=== PATIENT | female | born 1950 | race Caucasian/White ===

== ENCOUNTER → 2018-08-30 16:33 | Outpatient (CLI) | payer OTHER, SELFPAY ==
[2017-07-27 09:33] VITALS: BMI 36.6
--- NOTE | 2018-08-30 | ASPS_PTH ---
PATIENT: CRISTY MCRAE LOC: [facility] U#:[id number] AGE/SX: 74/F ROOM: RE08/30/[address]: Dr. Chela Cruz MD : [id number] BED: DIS: SPEC #: [id number] RECD: 08/30/18 15:16 STATUS: MADAN RELuz #: [id number] KHAI: 08/30/18 00:[address]: Chela Cruz DEPT: CYTOLOGY RECD BY: Jairo Bowden ENTERED: 08/31/18 09:52 SP TYPE: ASPIRATION OTHR DR: Dr. Jorje Alcantar III, MD Tissues: A - Nipple Procedures: Special Stain Group II Cytology Other HEADER OPERATION: Aspiration of left nipple PRE-OP DIAGNOSIS: Bloody left nipple discharge TISSUE SUBMITTED: Left nipple discharge DIAGNOSIS CYTOLOGY Left nipple discharge (smears): Abundant macrophages consistent with benign cyst contents. See comment. AM:iram 5/22/19 COMMENT Rare benign ductal epithelial cells are identified. The specimen primarily consists of macrophages. Clinical correlation is suggested. CYTOLOGY STUDY Slides are reviewed. CYTOLOGY GROSS Received are four smears labeled with the patient's name and designated per the requisition as left nipple discharge. Submitted for staining. 08/31/18 TC:5 CPT: 45604
== END ==
PROVIDERS: Family Provider Family Medicine; PCP Family Medicine; Referring Provider Surgery; Visit Provider Surgery
DX: N64.52 Nipple discharge (principal)
CPT/HCPCS: 88161; 88313

== ENCOUNTER 2018-09-20 16:43 | Emergency (ER) | payer MEDICARE, SELFPAY ==
[2018-09-03 13:08] VITALS: BMI 36.5
[2018-09-20 16:44] VITALS: BP 160/82; PULSE 82; RESP 16; TEMP 36.8; O2SAT 99; BMI 35.8
--- NOTE | 2018-09-20 17:34 | US_ITS ---
STUDY: VENOUS DOPPLER ULTRASOUND - RIGHT LOWER EXTREMITY REASON FOR EXAM: Female, 68 years old. Swelling TECHNIQUE: Ultrasound evaluation of the deep vein system to include caro-scale imaging and compression was performed. Caro-scale imaging and Doppler sonographic evaluation, including duplex spectral analysis and qualitative color flow sonography, was performed. COMPARISON: None. FINDINGS: Common Femoral Vein: Normal compression, spontaneity and augmentation. Normal color Doppler. Common Femoral Vein/Greater Saphenous Junction: Normal compression, spontaneity and augmentation. Normal color Doppler. Deep Femoral Vein: Normal compression, spontaneity and augmentation. Normal color Doppler. Femoral Proximal: Normal compression, spontaneity and augmentation. Normal color Doppler. Femoral Middle: Normal compression, spontaneity and augmentation. Normal color Doppler. Femoral Distal: Normal compression, spontaneity and augmentation. Normal color Doppler. Popliteal Vein: Normal compression, spontaneity and augmentation. Normal color Doppler. Posterior Tibial Vein: Normal compression, spontaneity and augmentation. Normal color Doppler. Peroneal Vein: Normal compression, spontaneity and augmentation. Normal color Doppler. There is superficial phlebothrombosis of the right medial ankle. US/Venous Duplex Imag/Limited/Uni IMPRESSION: Superficial phlebothrombosis in the right medial ankle. No evidence for deep venous thrombosis. Electronically Signed: Jose Ramon Puckett MD at 18:33 EDT , Service support ,
--- NOTE | 2018-09-20 18:05 | ED.VISSUMM ---
- ER Visit Summary Date of Service: 09/20/18 Chief Complaint: Right leg pain History of Present Illness: The patient is a 68 F who presents with pain and swelling in her right lower leg and ankle area that has been constant for the past 2 weeks. Patient describes her pain as sharp, dull, aching, and burning. Patient states nothing makes it better or worse. Patient denies any paresthesias or weakness. Patient states her primary care physician referred to the emergency department for possible DVT. Patient denies any chest pain or shortness of breath. Patient denies any calf pain. Physical Examination: Vital signs are stable. Patient is afebrile. Patient is in no acute distress. Skin is warm dry. There is some mild erythema and tenderness over the medial aspect of the right lower leg and ankle area. There is no calf tenderness. There is no bony crepitance or step-off. There is good range of motion of the right ankle and right knee. There is no pain or swelling of the right thigh. Sensation was intact to light touch bilaterally. Strength is 5/5 bilaterally in the lower extremities. Pedal pulses are equal bilaterally. Test Results: Venous duplex of the right lower extremity was obtained. There is superficial phlebitis noted. There is no DVT noted. Emergency Department Course and Treatment: Patient was instructed to use warm compresses the area. Patient was instructed to elevate her right lower leg. Patient was instructed to follow-up with her primary care physician in 5 to 7 days. Patient understood and was agreeable with the plan. All questions were answered. Disposition: Discharge home Impression: Superficial thrombophlebitis right lower leg This note was generated with Reel[employer]ie dictation software. It may contain incorrect words, spelling, and punctuation that were not noted in review of the chart prior to signing ED Disposition - Plan for ED Patient: Disposition: Home or Assisted Living Diagnosis: Superficial thrombophlebitis of right leg Instructions: ED Phlebitis Superficial Referrals: Jorje Alcantar III, MD [Primary Care Provider] - 5-7 Days
[2018-09-20 19:04] VITALS: BP 121/65; PULSE 55; RESP 15; O2SAT 97
== END 2018-09-20 19:10 | disposition home or self-care (01) ==
PROVIDERS: Emergency Provider Emergency Medicine; Family Provider Family Medicine; PCP Family Medicine
DX: I80.01 Phlebitis and thrombophlebitis of superficial vessels of right lower extremity (principal); I10 Essential (primary) hypertension; E03.9 Hypothyroidism, unspecified; Z79.899 Other long term (current) drug therapy
CPT/HCPCS: 93971; 99282

== ENCOUNTER → 2019-08-29 07:51 | Outpatient (CLI) | payer MEDICARE, OTHER, SELFPAY ==
--- NOTE | 2019-08-29 07:53 | ECHOD_ITS ---
Reason For Study: MURMUR Procedure This was a 2D Doppler, Color Flow transthoracic echocardiogram. The exam was of adequate technical quality. Exam performed in department. Left Ventricle Normal LV size. Left ventricular systolic function is normal. The estimated ejection fraction is 60 %. Diastolic function is indeterminate. No regional wall motion abnormalities noted. Right Ventricle Normal RV size. Normal systolic function. Atria The left atrium is mildly enlarged. Normal right atrium. No doppler evidence for ASD. Mitral Valve There is no mitral annular calcification. Normal mitral valve. Mild (1+) mitral valve insufficiency. Tricuspid Valve Normal tricuspid valve. Mild to moderate (1-2+) tricuspid valve insufficiency. Right ventricular systolic pressure estimated to be 30 mmHg. Aortic Valve Trisinus/trileaflet aortic valve. Mild focal aortic valve thickening. Mild (1+) aortic valve insufficiency. Pulmonic Valve The pulmonic valve is not well visualized. Trivial pulmonic valve insufficiency. Great Vessels Normal sized aortic root. Pericardium/Pleural Trivial pericardial effusion. There are no echocardiographic indications of cardiac tamponade. MMode/2D Measurements & Calculations LVIDd: 5.0 cm IVSd: 0.77 cm Ao root diam: 3.8 cm LVIDs: 3.2 cm LVPWd: 0.85 cm RVDd: 3.6 cm FS: 35.9 % LAV(MOD-bp): 52.3 ml LA A4 area: 19.4 cm2 LA dimension(2D): 3.8 cm LAV(MOD-bp) Indexed: 26.7 ml/m2 LAV(MOD-sp2): 42.1 ml LAV(MOD-sp4): 53.8 ml RA A4 area: 14.4 cm2 Time Measurements MV dec time: 0.19 sec Doppler Measurements & Calculations MV E max manuel: 83.1 cm/sec Lat Peak E' Manuel: 12.5 cm/sec Med Peak E' Manuel: 6.0 cm/sec MV A max manuel: 80.5 cm/sec E/E' lat: 6.7 E/E' med: 13.8 MV E/A: 1.0 Ao V2 max: 139.0 cm/sec AI max manuel: 348.9 cm/sec PA V2 max: 102.5 cm/sec Ao max P.7 mmHg AI max P.1 mmHg AI dec slope: 159.8 cm/sec2 AI P1/2t: 639.7 msec PI end-d manuel: 98.6 cm/sec TR max manuel: 261.2 cm/sec TR max P.3 mmHg Interpretation Summary Left ventricular systolic function is normal. The estimated ejection fraction is 60 %. The left atrium is mildly enlarged. Mild (1+) mitral valve insufficiency. Mild to moderate (1-2+) tricuspid valve insufficiency. Mild focal aortic valve thickening. Mild (1+) aortic valve insufficiency. Trivial pulmonic valve insufficiency. Trivial pericardial effusion. There are no echocardiographic indications of cardiac tamponade. Right ventricular systolic pressure estimated to be 30 mmHg. Diastolic function is indeterminate. Ordering Physician: Hernán Frausto Referring Physician: MAURY ZAMORANO Performed By: Yen Steele, YUKO, RVT
== END ==
PROVIDERS: PCP Family Medicine; Referring Provider Internal Medicine Cardiovascular Disease; Visit Provider Internal Medicine Cardiovascular Disease
DX: I47.1 Supraventricular tachycardia (principal)
CPT/HCPCS: 93306

== ENCOUNTER 2020-06-19 13:21 | Outpatient (RCR) | payer MEDICARE, OTHER, SELFPAY ==
[2019-09-12 09:11] VITALS: BMI 34.9
[2020-06-19] MEDS: COVID-19 VACC, MRNA(PFIZER)/PF 30 MCG/0.3 ML SYRINGE IM (08:39)
[2020-07-10] MEDS: COVID-19 VACC, MRNA(PFIZER)/PF 30 MCG/0.3 ML SYRINGE IM (08:26)
== END 2020-09-18 23:59 ==
LOC: IMMUN 13:21
PROVIDERS: PCP Family Medicine; Referring Provider Family Medicine; Visit Provider Family Medicine
DX: Z23 Encounter for immunization (principal)
CPT/HCPCS: 0001A; 0002A; 91300

== ENCOUNTER → 2021-08-01 | Outpatient (CLI) | payer MEDICARE, OTHER, SELFPAY ==
--- NOTE | 2021-08-01 13:52 | ECHOD_ITS ---
Reason For Study: MURMUR Procedure This was a 2D Doppler, Color Flow transthoracic echocardiogram. The exam was of adequate technical quality. Exam performed in department. Left Ventricle Normal LV size. Left ventricular systolic function is normal. The estimated ejection fraction is 60 %. Diastolic function is indeterminate. No regional wall motion abnormalities noted. Right Ventricle Normal RV size. Normal systolic function. Atria Normal left atrium. Normal right atrium. No doppler evidence for ASD. Mitral Valve There is no mitral annular calcification. Anterior leaflet diffuse mitral valve thickening. Mild- Moderate (1-2+) mitral valve insufficiency. Tricuspid Valve Normal tricuspid valve. Mild to moderate (1-2+) tricuspid valve insufficiency. Right ventricular systolic pressure estimated to be 30 mmHg. Aortic Valve Trisinus/trileaflet aortic valve. Mild focal aortic valve calcification. Trivial aortic valve insufficiency. Pulmonic Valve The pulmonic valve is not well visualized. Trivial pulmonic valve insufficiency. Great Vessels Normal sized aortic root. Pericardium/Pleural No pericardial effusion. MMode/2D Measurements & Calculations LVIDd: 4.7 cm IVSd: 1.0 cm LVOT diam: 2.1 cm LVIDs: 3.3 cm LVPWd: 0.90 cm LVOT area: 3.6 cm2 RVDd: 3.7 cm FS: 29.1 % Ao root diam: 3.2 cm LAV(MOD-bp): 55.8 ml LVAd ap4: 32.6 cm2 LAV(MOD-bp) Indexed: 28.5 ml/m2 LVLd ap4: 8.3 cm LAV(MOD-sp2): 60.3 ml EDV(MOD-sp4): 104.2 ml LAV(MOD-sp4): 45.5 ml EDV(sp4-el): 109.1 ml LVAs ap4: 17.7 cm2 LVLs ap4: 6.5 cm ESV(MOD-sp4): 45.8 ml ESV(sp4-el): 41.0 ml EF(MOD-sp4): 56.1 % EF(sp4-el): 62.4 % LVAd ap2: 27.8 cm2 SV(MOD-sp4): 58.4 ml SV(MOD-sp2): 51.9 ml LVLd ap2: 7.5 cm EDV(MOD-sp2): 85.6 ml EDV(sp2-el): 86.9 ml LVAs ap2: 15.4 cm2 LVLs ap2: 5.9 cm ESV(MOD-sp2): 33.7 ml ESV(sp2-el): 34.2 ml EF(MOD-sp2): 60.6 % SV(sp4-el): 68.1 ml LA dimension(2D): 3.2 cm LA A4 area: 17.4 cm2 RA A4 area: 14.7 cm2 Doppler Measurements & Calculations MV E max manuel: 106.3 cm/sec Lat Peak E' Manuel: 10.3 cm/sec Med Peak E' Manuel: 6.1 cm/sec MV A max manuel: 88.0 cm/sec E/E' lat: 10.4 E/E' med: 17.3 MV E/A: 1.2 Ao V2 max: 143.2 cm/sec AI max manuel: 356.0 cm/sec LV V1 max: 112.1 cm/sec Ao max P.2 mmHg AI max P.0 mmHg LV V1 max P.0 mmHg KELLY(V,D): 2.8 cm2 AI dec slope: 195.2 cm/sec2 AI P1/2t: 534.2 msec PA V2 max: 107.7 cm/sec TR max manuel: 258.5 cm/sec TR max P.7 mmHg ECHO/Echo Complete Interpretation Summary Left ventricular systolic function is normal. The estimated ejection fraction is 60 %. Anterior leaflet diffuse mitral valve thickening. Mild-Moderate (1-2+) mitral valve insufficiency. Mild to moderate (1-2+) tricuspid valve insufficiency. Mild focal aortic valve calcification. Trivial aortic valve insufficiency. Trivial pulmonic valve insufficiency. Right ventricular systolic pressure estimated to be 30 mmHg. Diastolic function is indeterminate. Ordering Physician: Hernán Frausto Referring Physician: MIREILLE ROSAS Performed By: Dari Godoy RCS
== END | disposition home or self-care (01) ==
PROVIDERS: PCP Nurse Practitioner Family; Visit Provider Internal Medicine Cardiovascular Disease
DX: I36.1 Nonrheumatic tricuspid (valve) insufficiency (principal); I47.1 Supraventricular tachycardia; I34.0 Nonrheumatic mitral (valve) insufficiency; I35.1 Nonrheumatic aortic (valve) insufficiency; R01.1 Cardiac murmur, unspecified; I10 Essential (primary) hypertension
CPT/HCPCS: 93306

== ENCOUNTER → 2022-07-07 | Outpatient (CLI) | payer MEDICARE, OTHER, SELFPAY ==
--- NOTE | 2022-07-07 09:54 | ECHOD_ITS ---
Reason For Study: MURMUR Procedure This was a 2D Doppler, Color Flow transthoracic echocardiogram. Exam performed in department. Left Ventricle Normal LV size. Left ventricular systolic function is normal. The estimated ejection fraction is 65 %. Normal diastology for age. No regional wall motion abnormalities noted. Right Ventricle Normal RV size. Normal systolic function. Atria Normal left atrium. Normal right atrium. Mitral Valve Normal mitral valve. Mild (1+) eccentric mitral valve insufficiency. Tricuspid Valve Normal tricuspid valve. Mild (1+) tricuspid valve insufficiency. Pulmonary artery systolic pressure is 34 mmHg. Aortic Valve Trisinus/trileaflet aortic valve. Mild (1+) eccentric aortic valve insufficiency. Pulmonic Valve Normal pulmonic valve. Great Vessels Normal aortic root. The pulmonary artery is normal size. Normal inferior vena cava. Pericardium/Pleural No pericardial effusion. MMode/2D Measurements & Calculations LVIDd: 5.0 cm IVSd: 0.90 cm Ao root diam: 3.4 cm LVIDs: 3.2 cm LVPWd: 0.84 cm RVDd: 3.5 cm FS: 37.2 % LAV(MOD-bp): 46.3 ml LVAd ap4: 31.1 cm2 SV(MOD-sp4): 65.5 ml LAV(MOD-bp) Indexed: 23.7 ml/m2 LVLd ap4: 7.9 cm LAV(MOD-sp2): 47.0 ml EDV(MOD-sp4): 99.4 ml LAV(MOD-sp4): 44.5 ml EDV(sp4-el): 104.1 ml LVAs ap4: 15.9 cm2 LVLs ap4: 6.6 cm ESV(MOD-sp4): 33.8 ml ESV(sp4-el): 32.6 ml EF(MOD-sp4): 65.9 % EF(sp4-el): 68.7 % SV(sp4-el): 71.5 ml LA A4 area: 17.9 cm2 LA dimension(2D): 3.2 cm RA A4 area: 14.8 cm2 Time Measurements MV dec time: 0.20 sec Doppler Measurements & Calculations MV E max manuel: 81.7 cm/sec Lat Peak E' Manuel: 14.1 cm/sec Med Peak E' Manuel: 7.8 cm/sec MV A max manuel: 74.7 cm/sec E/E' lat: 5.8 E/E' med: 10.4 MV E/A: 1.1 Ao V2 max: 127.6 cm/sec AI max manuel: 387.3 cm/sec LV V1 max: 95.9 cm/sec Ao max P.5 mmHg AI max P.0 mmHg LV V1 max P.7 mmHg AI dec slope: 154.8 cm/sec2 AI P1/2t: 732.8 msec PA V2 max: 95.2 cm/sec TR max manuel: 270.1 cm/sec TR max P.2 mmHg ECHO/Echo Complete Interpretation Summary Normal LV size. Left ventricular systolic function is normal. The estimated ejection fraction is 65 %. Normal diastology for age. Mild (1+) tricuspid valve insufficiency. Mild (1+) eccentric mitral valve insufficiency. Ordering Physician: Hernán Frausto Referring Physician: KEY LOVE Performed By: Sabiha Pompa RDCS
== END | disposition home or self-care (01) ==
PROVIDERS: PCP Family Medicine; Visit Provider Internal Medicine Cardiovascular Disease
DX: I35.1 Nonrheumatic aortic (valve) insufficiency (principal); I34.0 Nonrheumatic mitral (valve) insufficiency; I36.1 Nonrheumatic tricuspid (valve) insufficiency; R01.1 Cardiac murmur, unspecified
CPT/HCPCS: 93306

== ENCOUNTER 2022-07-19 19:34 | Emergency (ER) | payer MEDICARE, OTHER, SELFPAY ==
[2022-07-19 19:35] VITALS: BP 176/92; PULSE 106; RESP 18; TEMP 36.9; O2SAT 100; BMI 35.9
[2022-07-19 22:14] LABS: Absolute Lymphocyte Count 0.76 X10^3/uL (0.83-4.51); Absolute Neutrophil Count 6.6 X10^3/uL (2.0-7.7); Basophil# 0.06 X10^3/uL; Basophil% 0.7 % (0-1); Eosinophil# 0.12 X10^3/uL; Eosinophils% 1.5 % (0-5); Hematocrit 38.8 % (37-47); Hemoglobin 12.7 g/dL (12.0-15.0); Lymphocyte # 0.76 X10^3/ul (0.83-4.51); Lymphocyte % 9.3 % (19-41); Mean Corp Hgb Conc 32.7 g/dL (32-36); Mean Corpuscular Hgb 29.9 pg (27.0-32.0); Mean Corpuscular Volume 91.3 fL (81-99); Mean Platelet Vol. 8.7 fl (6.2-12.0); Monocyte# 0.63 X10^3/uL; Monocyte% 7.7 % (0-10); NRBC Flagged by Analyzer 0 % (0-5); Neutrophil # 6.56 X10^3/uL (2.7-7.7); Neutrophil % 80.4 % (47-70); Platelet Count 179 K/mm3 (150-450); RBC Distribution Width CV 13.6 % (11.6-14.6); RBC Distribution Width SD 45.8 fl (35.1-43.9); Red Blood Count 4.25 M/mm3 (4.2-5.4); White Blood Count 8.2 K/mm3 (4.4-11.0)
[2022-07-19 22:21] VITALS: RESP 18
[2022-07-19 22:25] LABS: Prothrombin Time (Protime)PT. 12.4 SECONDS (11.7-14.9)
[2022-07-19 22:33] LABS: Partial Thromboplast Time 30.4 Seconds (24.1-36.2)
[2022-07-19 22:46] LABS: Anion Gap 9 (5-15); BUN 17 mg/dL (7-18); BUN/Creat Ratio 13.8 RATIO (10-20); Calcium,Total 9.1 mg/dL (8.5-10.1); Chloride 106 mmol/L (98-107); Creatinine, Serum 1.23 mg/dL (0.55-1.02); EST Glomerular Filtration Rate 46 mL/min (>60); Est Glom Filt Rate - Afr Amer 56 mL/min (>60); Estimated Creatinine Clearance 36.75 ml/min; Glucose 115 mg/dL (74-106); Potassium 3.5 mmol/L (3.5-5.1); Sodium Level 138 mmol/L (136-145); Thyroid Stim Hormone (TSH) 3.12 uIU/mL (0.358-3.74)
--- NOTE | 2022-07-19 23:06 | EDS_ITS ---
HPI History of Present Illness Chief Complaint: GI Bleed Informant: patient Narrative Narrative: Patient presents secondary to GI bleed. She states that she has had some trouble with hemorrhoids recently. Yesterday the hemorrhoids became swollen and painful. She was out to dinner tonight when she felt wet and went to the restroom and noted blood. She reports having a low-grade fever of 99.7 last evening. No significant abdominal pain. No cough or congestion. 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 Nonrheumatic mitral (valve) insufficiency Syncope and collapse Home Medications cholecalciferol (vitamin D3) 50 mcg (2,000 unit) capsule 2,000 unit PO QDAY 07/27/17 [History Last Taken Unknown] levothyroxine 100 mcg capsule 100 mcg PO DAILY 08/10/20 [History Last Taken Unknown] levothyroxine 112 mcg capsule 112 mcg PO .Thursday08/10/20 [History Last Taken Unknown] calcium carbonate 600 mg calcium (1,500 mg) tablet 600 mg PO BID 08/05/21 [History Last Taken Unknown] amlodipine 5 mg tablet 5 mg PO QDAY #90 tabs 07/06/22 [Rx Last Taken Unknown] hydrocortisone 2.5 % topical cream with perineal applicator (Anusol-HC) 1 applic OK DAILY PRN hemorrhoids #30 grams 07/19/22 [Rx Last Taken Unknown] Allergy/AdvReac Type Severity Reaction Status Date / Time adhesive Allergy Hives Verified 07/19/22 19:35 egg AdvReac Upset Verified 07/19/22 19:35 Stomach Family History Father Hypertension Mother Lymphoma Brother Bipolar 1 disorder Pneumonia Brother Hypertension Surgical History History of laparoscopy Social History Smoking Status: Never smoker alcohol intake: never substance use type: does not use caffeine: No what type of physical activity do you participate in: bicycling frequency: 5-6 times per week duration: 45-60 minutes/day seatbelt use: always do you feel safe at home: Yes ROS ROS ED Constitutional Constitutional ED: Reports fever(s); Denies chills Eyes Eyes: Denies change in vision or discharge from eye(s) ENT ENT ED: Denies discharge from eye(s), rhinorrhea or sore throat Cardiovascular Cardiovascular: Denies chest pain or palpitations Respiratory/Chest Respiratory/Chest: Denies cough or dyspnea Gastrointestinal Gastrointestinal: Reports other Details: Hemorrhoids, bleeding ; Denies abdominal pain, diarrhea, nausea or vomiting Genitourinary Genitourinary ED: Denies difficulty urinating or dysuria Musculoskeletal Musculoskeletal: Denies back pain or extremity pain Integumentary Denies Abrasions or rash Neurologic Neurologic: Denies headache(s) or weakness Psychiatric Psychiatric: Denies anxiety or depression Allergic/Immunologic Allergic/Immunologic ED: Denies lip swelling or urticaria EXAM Physical Exam Const Vital Signs: 07/19/22 19:35 07/19/22 22:21 Temperature 98.4 F Temperature Source Temporal Pulse Rate 106 H Respiratory Rate 18 18 Blood Pressure 176/92 H Blood Pressure Mean 120 Pulse Ox 100 Oxygen Delivery Method Room Air Positive well nourished and well developed General Appearance ED: well developed HEENT Reports moist mucous membranes Neck no lymphadenopathy Chest Wall inspection of chest normal and palpation of chest normal Resp normal respiratory effort and clear to auscultation bilaterally Cardio regular rate and regular rhythm GI normal to inspection, nondistended, normoactive bowel sounds and non-tender GI Narrative: Rectal examination reveals large thrombosed hemorrhoid. There is evidence of recent bleeding. Extremity normal to inspection Neuro oriented x3 Psych mental status grossly normal MDM MDM MDM Narrative Medical decision making narrative: Labwork obtained to evaluate for leukocytosis, anemia, and electrolyte derangement. I discussed I&D of the thrombosed hemorrhoid with the patient. She is in agreement. 6 cc of 1% lidocaine or infused locally to the enlarged hemorrhoid. A #11 blade is used to make a 1 cm incision. I do get return of some blood, however a lot of inflamed tissue was noted with no large thrombus. Dressing is applied. Anusol HC suppository given. Prescription for the same. CBC reveals normal hemoglobin and white count. Coags are unremarkable. Chemistry studies significant only for a creatinine of 1.23. Patient is referred to surgery for follow-up as needed. Return instructions given. Lab Data Labs: Laboratory Results - last 24 hr 07/19/22 07/19/22 07/19/22 22:10 22:10 22:10 WBC 8.2 RBC 4.25 Hgb 12.7 Hct 38.8 MCV 91.3 MCH 29.9 MCHC 32.7 RDW Std Deviation 45.8 H RDW Coeff of Judy 13.6 Plt Count 179 MPV 8.7 Immature Gran % (Auto) 0.400 Neut % (Auto) 80.4 H Lymph % (Auto) 9.3 L [place] % (Auto) 7.7 Eos % (Auto) 1.5 Baso % (Auto) 0.7 Absolute Neuts (auto) 6.6 Absolute Lymphs (auto) 0.76 L Nucleated RBC % 0 PT 12.4 INR 1.0 APTT 30.4 Sodium 138 Potassium 3.5 Chloride 106 Carbon Dioxide 23.0 Anion Gap 9 BUN 17 Creatinine 1.23 H Estim Creat Clear Calc 36.75 Est GFR (MDRD) Af Amer 56 L Est GFR (MDRD) Non-Af 46 L BUN/Creatinine Ratio 13.8 Glucose 115 H Calcium 9.1 TSH 3.12 Discharge Plan Triage Chief Complaint: GI Bleed ED Provider: Skyla Romano Dx/Rx/DC Orders Clinical Impression: Hemorrhoids Instructions: ED Hemorrhoids Prescriptions: New hydrocortisone [Anusol-HC] 2.5 % cream with perineal applicator 1 applic OK DAILY PRN (Reason: hemorrhoids) Qty: 30 0RF No Action cholecalciferol (vitamin D3) 2,000 unit capsule 2,000 unit PO QDAY levothyroxine 112 mcg capsule 112 mcg capsule 112 mcg PO .Thursday levothyroxine 100 mcg capsule 100 mcg capsule 100 mcg PO DAILY Rx Instructions: EXcept for Thursday calcium carbonate 600 mg calcium (1,500 mg) tablet 600 mg PO BID amlodipine 5 mg tablet 5 mg PO QDAY Qty: 90 3RF Primary Care Provider: Joseph Dunaway Referrals: Chela Cruz MD [Med Staff - Active Staff] - 1-2 Weeks Joseph Dunaway MD [Primary Care Provider] - Disposition Disposition: Home, Self Care Discharge Date/Time: 07/19/22 23:20
[2022-07-19] MEDS: Hydrocortisone 25 MG Suppository RC (23:12)
[2022-07-19] MEDS: Lidocaine 1% (20 ml mdv) 20 ML Vial INFILT (23:12)
== END 2022-07-19 23:20 | disposition home or self-care (01) ==
PROVIDERS: Emergency Provider Emergency Medicine; PCP Family Medicine; Visit Provider Emergency Medicine
DX: K64.9 Unspecified hemorrhoids (principal); I10 Essential (primary) hypertension
CPT/HCPCS: 36415; 80048; 84443; 85025; 85610; 85730; 99283; J7030

== ENCOUNTER 2023-10-28 07:02 | Inpatient (IN) | payer MEDICARE, OTHER, SELFPAY ==
[2023-10-28] VITALS (17 sets, daily range): BP systolic 117–146; BP diastolic 58–102; PULSE 55–68; RESP 14–100; TEMP 35.7–36.8; O2SAT 96–100; BMI 35.7; BMI 35.4
--- NOTE | 2023-10-28 07:05 | CT_ITS ---
We are attempting to reach an attending provider to discuss findings. An addendum with communication details will be sent when the communication is complete. EXAM: CT ANGIOGRAPHY HEAD AND NECK WITH INTRAVENOUS CONTRAST CLINICAL INDICATION: Neuro deficit, acute stroke suspected TECHNIQUE: [place] [facility] [place]/head and neck CT angiography protocol performed with intravenous contrast. This CT exam was performed using one or more of the following dose reduction techniques: automated exposure control, adjustment of the mA and/or kV according to patient size, and/or use of iterative reconstruction technique. MIP reconstructed images were created and reviewed. CONTRAST: 100 cc of Isovue-370 IV. RADIATION DOSE: CTDIvol = 24.33 mGy, DLP = 776.94 mGy-cm COMPARISON: No relevant prior studies available. FINDINGS: HEAD: RIGHT ANTERIOR CEREBRAL ARTERY: Unremarkable. No occlusion or significant stenosis. Anterior communicating artery is present. No aneurysm. RIGHT MIDDLE CEREBRAL ARTERY: Unremarkable. No occlusion or significant stenosis. No aneurysm. RIGHT POSTERIOR CEREBRAL ARTERY: Arises primarily from the right internal carotid artery. No occlusion or significant stenosis. No aneurysm. RIGHT INTRACRANIAL INTERNAL CAROTID ARTERY: Unremarkable. No significant stenosis. No dissection or occlusion. RIGHT INTRACRANIAL VERTEBRAL ARTERY: Unremarkable. No significant stenosis. No dissection or occlusion. LEFT ANTERIOR CEREBRAL ARTERY: Unremarkable. No occlusion or significant stenosis. No aneurysm. LEFT MIDDLE CEREBRAL ARTERY: Unremarkable. No occlusion or significant stenosis. No aneurysm. LEFT POSTERIOR CEREBRAL ARTERY: Arises primarily from the left internal carotid artery. No occlusion or significant stenosis. No aneurysm. LEFT INTRACRANIAL INTERNAL CAROTID ARTERY: Unremarkable. No significant stenosis. No dissection or occlusion. LEFT INTRACRANIAL VERTEBRAL ARTERY: Unremarkable. No significant stenosis. No dissection or occlusion. BASILAR ARTERY: Diffusely small caliber because of bilateral origins of posterior cerebral arteries. No occlusion or significant stenosis. No aneurysm. OTHER VASCULATURE: No vascular malformation. NECK: RIGHT COMMON CAROTID ARTERY: Unremarkable. No significant stenosis. No dissection or occlusion. RIGHT EXTRACRANIAL INTERNAL CAROTID ARTERY: Unremarkable. No significant stenosis. No dissection or occlusion. RIGHT EXTERNAL CAROTID ARTERY: Unremarkable. No occlusion. RIGHT EXTRACRANIAL VERTEBRAL ARTERY: Unremarkable. No significant stenosis. No dissection or occlusion. LEFT COMMON CAROTID ARTERY: Unremarkable. No significant stenosis. No dissection or occlusion. LEFT EXTRACRANIAL INTERNAL CAROTID ARTERY: Unremarkable. No significant stenosis. No dissection or occlusion. LEFT EXTERNAL CAROTID ARTERY: Unremarkable. No occlusion. LEFT EXTRACRANIAL VERTEBRAL ARTERY: Unremarkable. No significant stenosis. No dissection or occlusion. BRACHIOCEPHALIC AND SUBCLAVIAN ARTERIES: Unremarkable as visualized. No occlusion or significant stenosis. LUNG APICES: Unremarkable as visualized. HEAD and NECK: BONES/JOINTS: Unremarkable. No discrete lytic or blastic abnormalities. SOFT TISSUES: Unremarkable. CAROTID STENOSIS REFERENCE USING NASCET CRITERIA: % ICA stenosis = (1 - narrowest ICA diameter/diameter of distal cervical ICA) x 100. Mild - <50% stenosis. Moderate - 50-69% stenosis. Severe - 70-94% stenosis. Near occlusion - 95-99% stenosis. Occluded - 100% stenosis. CT/CTA Head AND Neck W/ Contrast IMPRESSION: No large vessel occlusion or significant intracranial vascular abnormality. Electronically Signed: Devonte Alaniz MD at 7:32 EDT ,
--- NOTE | 2023-10-28 07:05 | EKG12_ITS ---
Test Reason : STROKE TEAM Blood Pressure : / mmHG Vent. Rate : 056 BPM Atrial Rate : 056 BPM P-R Int : 192 ms QRS Dur : 088 ms QT Int : 434 ms P-R-T Axes : 041 -03 063 degrees QTc Int : 418 ms Sinus bradycardia Minimal voltage criteria for LVH, may be normal variant ( R in aVL ) Nonspecific T wave abnormality Abnormal ECG Confirmed by JOSE LOVING, LISBETH ([id number]), script editor PIPPA SAGE ([id number]) on 10/29/2023 9:09:27 AM Referred By: Confirmed By:LISBETH GARCIA MD
--- NOTE | 2023-10-28 07:05 | CT_ITS ---
We are attempting to reach an attending provider to discuss findings. An addendum with communication details will be sent when the communication is complete. EXAM: CT HEAD WITHOUT INTRAVENOUS CONTRAST CLINICAL INDICATION: CVA TECHNIQUE: Multiple axial images were obtained of the head without intravenous contrast. This CT exam was performed using one or more of the following dose reduction techniques: automated exposure control, adjustment of the mA and/or kV according to patient size, and/or use of iterative reconstruction technique. RADIATION DOSE: CTDIvol = 44.99 mGy, DLP = 796.11 mGy-cm COMPARISON: No relevant prior studies available. FINDINGS: BRAIN AND EXTRA-AXIAL SPACES: Densely calcified dural-based mass that measures 3.5 x 1.6 x 2.6 cm along the left frontal convexity posterior superior medially consistent with a meningioma. Mild generalized atrophy. Mild low density bilaterally in the deep white matter. No intra- or extra-axial hemorrhage. No evidence of acute infarct. There is preservation of the hicks/white matter interface. Posterior fossa structures are unremarkable. No hydrocephalus. Basal cisterns are patent. BONES/JOINTS: Unremarkable. No discrete lytic or blastic abnormalities. SINUSES: Unremarkable as visualized. Clear. MASTOID AIR CELLS: Unremarkable. Clear. ORBITS: Visualized globes, extraocular muscles, optic nerves and retrobulbar fat appear unremarkable. CT/STROKE Brain/Head without Cont IMPRESSION: 1. No acute intracranial abnormality. 2. Densely calcified dural-based mass that measures 3.5 x 1.6 x 2.6 cm along the left frontal convexity posterior superior medially consistent with a meningioma. No adjacent edema. 3. Mild generalized atrophy. Mild low density bilaterally in the deep white matter. This likely represents chronic small vessel ischemic changes in the deep white matter. ASSESSMENT: ASPECTS ([place] Stroke Program Early CT Score) is 10. Electronically Signed: Devonte Alaniz MD at 7:28 EDT ,
--- NOTE | 2023-10-28 07:33 | ED.VIS.STROK ---
HPI History of Present Illness Chief Complaint: Stroke Alert Informant: patient, spouse/S.O. and EMS Narrative Narrative: 73-year-old female presenting to the emergency room via EMS as a prehospital stroke alert. states that she went to bed around 20 to 30 hours last night. states that around 0600 hrs. he was in bed and she got up and walked to the bathroom. He states that she did not speak with them which is normal for her as she tries not to wake him up. He states that he heard a noise coming from the bathroom and asked that the door if she was okay. He states that the door opened up and she was on the ground. Is reported that she was not speaking. EMS notes that she is not moving the right side of her body. states that she does not take any blood thinners but is treated for hypertension and hypothyroidism. He did not see any signs of trauma on her. Patient is mute at this time. [facility] Medical History Ectopic atrial tachycardia Non-rheumatic tricuspid valve insufficiency Nonrheumatic mitral (valve) insufficiency Cardiac murmur Syncope and collapse Nonrheumatic aortic valve insufficiency Diseases of tricuspid valve Hypothyroidism Benign essential hypertension Home Medications ?Medication ?Instructions ?Recorded ?Last Taken ?Type cholecalciferol (vitamin D3) 50 2,000 unit PO QDAY 07/27/17 Unknown History mcg (2,000 unit) capsule levothyroxine 100 mcg capsule 100 mcg PO DAILY 08/10/20 Unknown History levothyroxine 112 mcg capsule 112 mcg PO .Thursday08/10/20 Unknown History calcium carbonate 600 mg PO BID 08/05/21 Unknown History hydrocortisone 2.5 % topical cream 1 applic CO DAILY PRN hemorrhoids 07/19/22 Unknown Rx with perineal applicator #30 grams (Anusol-HC) amlodipine 5 mg tablet 5 mg PO QDAY #90 tabs 08/11/23 Unknown Rx Allergy/AdvReac Type Severity Reaction Status Date / Time adhesive Allergy Hives Verified 10/28/23 07:03 egg AdvReac Upset Verified 10/28/23 07:03 Stomach Family History Father Hypertension Mother Lymphoma Brother Bipolar 1 disorder Pneumonia Brother Hypertension Surgical History History of laparoscopy Social History Smoking Status: Never smoker alcohol intake: never substance use type: does not use caffeine: No what type of physical activity do you participate in: bicycling frequency: 5-6 times per week duration: 45-60 minutes/day seatbelt use: always do you feel safe at home: Yes ROS ROS ED ROS Narrative As the patient is aphasic review of systems is obtained through discussion with Constitutional Constitutional ED: Denies chills, fever(s) or weight loss Eyes Eyes: Denies change in vision or diplopia ENT ENT ED: Denies ear pain, rhinorrhea or sore throat Cardiovascular Cardiovascular: Denies chest pain, orthopnea, palpitations or racing heartbeat Respiratory/Chest Respiratory/Chest: Denies cough, dyspnea or orthopnea Gastrointestinal Gastrointestinal: Denies abdominal pain, diarrhea, nausea or vomiting Genitourinary Genitourinary ED: Denies dysuria, hematuria or urinary frequency Musculoskeletal Musculoskeletal: Denies arthralgias or myalgias Integumentary Denies abscess or rash Neurologic Neurologic: Reports weakness and other Details: aphasia ; Denies headache(s) Psychiatric Psychiatric: Denies anxiety, depression, suicidal ideation or suicidal thoughts Endocrine Endocrinology: Denies polydipsia, polyphagia or polyuria Allergic/Immunologic Allergic/Immunologic ED: Denies mouth swelling, tongue swelling or urticaria EXAM Physical Exam Const Vital Signs: 10/28/23 07:04 10/28/23 07:05 10/28/23 07:26 Temperature 97.8 F 97.8 F Temperature Source Temporal Temporal Pulse Rate 59 L 60 Respiratory Rate 16 24 H Blood Pressure 131/60 H 130/64 H Blood Pressure Mean 83 86 Pulse Ox 97 99 98 Oxygen Delivery Method Room Air Room Air Room Air Oxygen Flow Rate (L/min) 10/28/23 07:35 10/28/23 08:02 10/28/23 08:05 Temperature 97.8 F 96.2 F L Temperature Source Temporal Core Pulse Rate 68 60 55 L Respiratory Rate 18 16 16 Blood Pressure 141/99 H 136/59 H 136/59 H Blood Pressure Mean 113 84 84 Pulse Ox 98 98 98 Oxygen Delivery Method Room Air Nasal Cannula Nasal Cannula Oxygen Flow Rate (L/min) 2 2 10/28/23 08:30 Temperature 96.5 F L Temperature Source Core Pulse Rate 56 L Respiratory Rate 16 Blood Pressure 126/60 H Blood Pressure Mean 82 Pulse Ox 98 Oxygen Delivery Method Nasal Cannula Oxygen Flow Rate (L/min) 2 Positive well nourished, well developed and obese General Appearance ED: well developed and NAD Nutritional Appearance: obese HEENT Reports normocephalic, head/scalp atraumatic and moist mucous membranes Eyes PERRL and EOMs intact bilaterally Neck no lymphadenopathy, supple and no JVD Resp normal respiratory effort and clear to auscultation bilaterally Cardio Rate: bradycardia Rhythm: regular rhythm GI normal to inspection, nondistended, normoactive bowel sounds and non-tender Palpation: soft Back/Spine no CVA tenderness and normal ROM Extremity normal to inspection General Extremety ED: Negative for edema General Extremity: Negative for edema Neuro Neuro Narrative: Patient is awake, follow commands. She is mute. She is able to squeeze my hands with her hands bilaterally and hold her right arm up. She is not moving her right leg. I cannot ascertain whether or not she can feel me touching her legs. She will not nod her head yes or no. Sensorium / Orientation: alert Speech: Negative for speech normal Psych mental status grossly normal Mood & Affect: Negative for depressed or tearful Skin no rashes or lesions noted and no wounds NIHSS NIHSS Initial: 1a Level of Consciousness: 0 1b LOC Questions (Score 2 if aphasic/stupor): 2 1c LOC Commands (Only score 1st attempt): 0 2 Best Gaze (If aphasic, use reflexive mvmts.): 0 3 Visual: 0 4 Facial Palsy: 0 5 Motor Arm Right (UN = amputation/fusion): 0 5 Motor Arm Left: 0 6 Motor Leg Right: 4 6 Motor Leg Left: 0 7 Limb ataxia (Only + if out of proportion): 0 8 Sensory (Aphasia/stupor=0 or 1, coma=2): 1 9 Best Language: 3 10 Dysarthria (mute, coma=2, intubated=UN): 2 11 Extinction and Inattention (only scored if +): 0 Total Score: 12 MDM MDM MDM Narrative Medical decision making narrative: Differential diagnosis includes hemorrhagic and ischemic stroke, dissection, ACS, electrolyte abnormalities, infection White count 5.9 hemoglobin 14.0 coags negative urinalysis negative. EKG is sinus bradycardia. My independent interpretation of the chest x-ray is no acute process. CT of the brain demonstrates a calcified meningioma CTA of the head and neck demonstrates no dissection or LVO. Stroke team was called prehospital. I evaluated the patient in the ambulance bay and she was taken directly to CT. Patient was assessed by [facility] neurology. Initial last known well reported at 0 600 was adjusted to 2230 when the patient was last known speaking. Therefore she is not a tPA candidate. I do not see an LVO for her to be transferred. Patient will be admitted into the hospital for further management will speak with the hospitalist. History & Record Review Discussion w/independent historian: Patient and Family Additional record(s) reviewed:: Prior labs Lab Data Attestation: I reviewed the patient's lab results. Labs: Laboratory Results - last 24 hr 10/28/23 10/28/23 10/28/23 07:41 07:51 07:58 WBC 5.9 RBC 4.82 Hgb 14.0 Hct 42.9 MCV 89.0 MCH 29.0 MCHC 32.6 RDW Std Deviation 44.4 H RDW Coeff of Judy 13.6 Plt Count TNP MPV 9.6 Immature Gran % (Auto) 0.700 Neut % (Auto) 64.0 Lymph % (Auto) 22.1 [place] % (Auto) 7.9 Eos % (Auto) 4.4 Baso % (Auto) 0.9 Absolute Neuts (auto) 3.8 Absolute Lymphs (auto) 1.29 Nucleated RBC % 0 Platelet Estimate SLT DEC PT 13.1 INR 1.0 APTT < 20.0 L Sodium Cancelled Potassium Cancelled Chloride Cancelled Carbon Dioxide Cancelled Anion Gap Cancelled BUN Cancelled Creatinine Cancelled Estim Creat Clear Calc Cancelled Est GFR (MDRD) Af Amer Cancelled Est GFR (MDRD) Non-Af Cancelled BUN/Creatinine Ratio Cancelled Glucose Cancelled Calcium Cancelled Troponin I High Sens Cancelled Urine Color Yellow Urine Clarity Clear Urine pH 8.0 Ur Specific [place] 1.010 Urine Protein Negative Urine Glucose (UA) Normal Urine Ketones Negative Urine Occult Blood Negative Urine Nitrite Negative Urine Bilirubin Negative Urine Urobilinogen Normal Ur Leukocyte Esterase Negative Urine RBC 0-5 SEEN Urine WBC 0-5 SEEN Ur Squamous Epith Cells 0 SEEN Urine Bacteria 0 SEEN Urine Mucus 0 SEEN POC Glucose 105 Radiography Diagnostic Testing: Clinical Impression(s) from Imaging Studies Chest X-Ray 10/28/23 08:08 IMPRESSION: 1. No active pulmonary disease. 2. Cardiomegaly. 3. Suspect hiatal hernia. Electronically Signed: Anirudh Moore MD at 8:18 EDT , EKG Initial EKG: Attestation: I personally reviewed and interpreted this EKG as follows: Comments: Sinus bradycardia ventricular rate of 56 bpm. Management Discussion w/another healthcare provider: Hospitalist (Dr. Ingram), Fish Farm Manager ([facility] Neurology) and Radiologist Critical Care Time Critical Care Time: Yes Critical care time (excluding procedures): 30-74 minutes (35 min), Including time spent:, Discussing w/Patient &/or Family/Machine Shop Instructor, Discussing w/Consultants, Arranging Admission or Transfer and Performing Direct Patient Care at Bedside Discharge Plan Triage Chief Complaint: Stroke Alert ED Provider: Shay Santiago Dx/Rx/DC Orders Prescriptions: No Action cholecalciferol (vitamin D3) 2,000 unit capsule 2,000 unit PO QDAY levothyroxine 112 mcg capsule 112 mcg PO .Thursday levothyroxine 100 mcg capsule 100 mcg PO DAILY Rx Instructions: EXcept for Thursday calcium carbonate 600 mg calcium (1,500 mg) tablet 600 mg PO BID hydrocortisone [Anusol-HC] 2.5 % cream with perineal applicator 1 applic CO DAILY PRN (Reason: hemorrhoids) Qty: 30 0RF amlodipine 5 mg tablet 5 mg PO QDAY Qty: 90 3RF Primary Care Provider: Joseph Dunaway Referrals: Joseph Dunaway MD [Primary Care Provider] - Print Language: Hungarian
[2023-10-28 07:50] LABS: Absolute Lymphocyte Count 1.29 X10^3/uL (0.83-4.51); Absolute Neutrophil Count 3.8 X10^3/uL (2.0-7.7); Basophil# 0.05 X10^3/uL; Basophil% 0.9 % (0-1); Eosinophil# 0.26 X10^3/uL; Eosinophils% 4.4 % (0-5); Hematocrit 42.9 % (37-47); Lymphocyte # 1.29 X10^3/ul (0.83-4.51); Lymphocyte % 22.1 % (19-41); Mean Corp Hgb Conc 32.6 g/dL (32-36); Mean Platelet Vol. 9.6 fl (6.2-12.0); Monocyte# 0.46 X10^3/uL; Monocyte% 7.9 % (0-10); NRBC Flagged by Analyzer 0 % (0-5); Neutrophil # 3.75 X10^3/uL (2.7-7.7); POSITIVE COUNT YES; RBC Distribution Width CV 13.6 % (11.6-14.6); RBC Distribution Width SD 44.4 fl (35.1-43.9); Red Blood Count 4.82 M/mm3 (4.2-5.4); White Blood Count 5.9 K/mm3 (4.4-11.0)
[2023-10-28 07:59] LABS: Prothrombin Time (Protime)PT. 13.1 SECONDS (11.7-14.9)
[2023-10-28 08:06] LABS: Bacteria 0 SEEN /hpf (None Seen); Mucous, Urine 0 SEEN /hpf (<or=2+); Squamous Epithelial Cells - UA 0 SEEN /hpf (5-10)
--- NOTE | 2023-10-28 08:08 | RAD_ITS ---
STUDY: X-RAY CHEST REASON FOR EXAM: Female, 73 years old. Neuro deficit, acute, stroke suspected TECHNIQUE: Single AP portable view of the chest. COMPARISON: 06/13/2011 FINDINGS: The lungs are clear and expanded. There is no demonstrated pleural abnormality. There is moderate cardiac enlargement. Suspect hiatal hernia. Normal visualized pulmonary arteries. Normal visualized aortic arch and descending thoracic aorta. Normal visualized thoracic spine. Normal visualized ribs, clavicles, and shoulders. There is no demonstrated abnormality of the visualized soft tissue structures of the upper abdomen. RAD/Chest 1 View IMPRESSION: 1. No active pulmonary disease. 2. Cardiomegaly. 3. Suspect hiatal hernia. Electronically Signed: Anirudh Moore MD at 8:18 EDT ,
[2023-10-28 08:11] LABS: Color, Urine Yellow (Yellow); Glucose, Dipstick Normal (Normal); Ketone-Dipstick Negative (Negative); Leukocyte Esterase-Dipstick Negative /ul (Negative); Nitrite-Dipstick Negative (Negative); Occult Blood-Urine Negative /ul (Negative); Protein-Dipstick Negative (Negative); Urine Bilirubin Dipstick Negative (Negative); Urine Clarity Clear (Clear); Urine Urobilinogen Normal (Normal)
[2023-10-28 08:14] LABS: Bedside Glucose 105 mg/dL (74-106)
[2023-10-28 08:19] LABS: Red Blood Cells-Urine 0-5 SEEN /hpf (0-5); White Blood Cells 0-5 SEEN /hpf (0-5)
[2023-10-28 08:23] LABS: Partial Thromboplast Time < 20.0 Seconds (24.1-36.2)
[2023-10-28 08:47] LABS: Differential Indicated SCAN CRITERIA MET
[2023-10-28 08:50] LABS: Platelet Estimate SLT DEC (ADEQ)
--- NOTE | 2023-10-28 09:03 | MRI_ITS ---
We are attempting to reach an attending provider to discuss findings. An addendum with communication details will be sent when the communication is complete. STUDY: MRI BRAIN WITH AND WITHOUT CONTRAST REASON FOR EXAM: Female, 73 years old. stroke TECHNIQUE: Standardized multiplanar fat and water weighted pulse sequences were obtained. IV 19ml clariscan was administered for the contrast portion of the examination. COMPARISON: CT earlier today FINDINGS: There is mild cerebral atrophy with widening of the extra-axial spaces and ventricular dilatation. There are a limited number of small white matter hyperintensities, distributed throughout the deep white matter tracts of the cerebral hemispheres, consistent with mild chronic white matter ischemic changes. There is faint restricted diffusion of the parafalcine left parietal lobe consistent with a subacute infarct. Normal T2* images of the brain without demonstrated susceptibility artifact. There is no demonstrated hemosiderin stain. Normal bilateral basal ganglia. Normal thalami. There is no extra-axial fluid accumulation. Normal flow voids within the major intracranial circulation suggesting patency by spin echo criteria. Normal venous enhancement. 2.5 cm round T1 isointense, T2 isointense, solidly enhancing dural based mass superior left parietal lobe consistent with a meningioma Normal sella turcica, pituitary gland, infundibular stalk, optic chiasm and hypothalamus. Normal tectal plate and pineal gland. Normal midbrain, annita and medulla. Normal cerebellum. Normal basal cisterns. Normal bilateral temporal bones. Normal bilateral internal auditory canals. No demonstrated orbital abnormality, within the constraints of a routine brain study. Normal visualized paranasal sinuses. Normal calvarium and skull base. Normal visualized soft tissue structures. Normal visualized upper cervical spine. MRI/Brain W/WO Contrast IMPRESSION: 1. Involutional changes of the brain, as described above. 2. Subacute infarct in the parafalcine left parietal lobe. 3. 2.5 cm meningioma superior to the left parietal lobe. Electronically Signed: Anirudh Moore MD at 11:50 EDT ,
--- NOTE | 2023-10-28 09:03 | ECHOD_ITS ---
Reason For Study: TIA/CVA Procedure This was a 2D Doppler, Color Flow transthoracic echocardiogram. Exam performed portable in patient room. Left Ventricle Normal LV size. The estimated ejection fraction is 65 %. No evidence for diastolic dysfunction. No regional wall motion abnormalities noted. Right Ventricle Normal RV size. Normal systolic function. Atria The left and right atria are normal. No doppler evidence for ASD. Bubble contrast study negative for right to left interatrial shunt. Mitral Valve There is no mitral valve stenosis. Trivial mitral valve insufficiency. Tricuspid Valve There is no tricuspid stenosis. Trivial tricuspid valve insufficiency. Pulmonary artery systolic pressure is 35 mmHg. Aortic Valve Trisinus/trileaflet aortic valve. Aortic sclerosis, no stenosis. There is no aortic stenosis. Trivial aortic valve insufficiency. Pulmonic Valve There is no pulmonic valvular stenosis. No pulmonic valve insufficiency. Great Vessels Normal aortic root. Pericardium/Pleural No pericardial effusion. Medication Performed a rapid injection of agitated mix of 9 cc saline and 1cc air to assess for atrial septal defect. MMode/2D Measurements & Calculations LVIDd: 5.0 cm IVSd: 0.96 cm Ao root diam: 3.6 cm LVIDs: 2.4 cm LVPWd: 1.0 cm RVDd: 4.4 cm FS: 51.5 % LAV(MOD-bp): 53.6 ml LVAd ap4: 26.4 cm2 SV(MOD-sp4): 53.2 ml LAV(MOD-bp) Indexed: 27.0 ml/m2 LVLd ap4: 7.2 cm LAV(MOD-sp2): 47.6 ml EDV(MOD-sp4): 78.6 ml LAV(MOD-sp4): 48.3 ml EDV(sp4-el): 82.5 ml LVAs ap4: 13.1 cm2 LVLs ap4: 5.6 cm ESV(MOD-sp4): 25.4 ml ESV(sp4-el): 26.0 ml EF(MOD-sp4): 67.6 % EF(sp4-el): 68.5 % SV(sp4-el): 56.5 ml LA A4 area: 18.2 cm2 LA dimension(2D): 2.9 cm RA A4 area: 9.5 cm2 TAPSE: 2.3 cm Time Measurements MV dec time: 0.23 sec Doppler Measurements & Calculations MV E max manuel: 84.8 cm/sec Lat Peak E' Manuel: 12.6 cm/sec Med Peak E' Manuel: 6.5 cm/sec MV A max manuel: 94.0 cm/sec E/E' lat: 6.7 E/E' med: 13.1 MV E/A: 0.90 MV dec slope: 371.5 cm/sec2 Ao V2 max: 191.8 cm/sec AI max manuel: 377.1 cm/sec Ao max P.7 mmHg AI max P.9 mmHg Ao V2 mean: 125.7 cm/sec AI dec slope: 176.0 cm/sec2 Ao mean P.3 mmHg AI P1/2t: 627.6 msec Ao V2 VTI: 49.8 cm AV (velocity ratio): 0.67 LV V1 max: 137.2 cm/sec PA V2 max: 123.0 cm/sec TR max manuel: 281.1 cm/sec LV V1 max P.5 mmHg TR max P.6 mmHg LV V1 mean P.5 mmHg LV V1 mean: 87.2 cm/sec LV V1 VTI: 33.5 cm ECHO/Echo Complete Interpretation Summary The estimated ejection fraction is 65 %. No evidence for diastolic dysfunction. Trivial mitral valve insufficiency. Trivial aortic valve insufficiency. Ordering Physician: Serge Ingram Referring Physician: Joseph Dunaway Performed By: Shayy Elizabeth RDCS, RVT
[2023-10-28 09:12] LABS: Anion Gap 6 (5-15); BUN 19 mg/dL (7-18); Chloride 106 mmol/L (98-107); Creatinine, Serum 1.27 mg/dL (0.55-1.02); EST Glomerular Filtration Rate 44 mL/min (>60); Est Glom Filt Rate - Afr Amer 53 mL/min (>60); Glucose 103 mg/dL (74-106); Potassium 3.9 mmol/L (3.5-5.1); Sodium Level 138 mmol/L (136-145); Troponin-I HS 19 pg/mL (3.0-54.0)
--- NOTE | 2023-10-28 09:46 | ED.RN ---
PT TO MRI
--- NOTE | 2023-10-28 10:01 | ED.RN ---
Addendum entered by Luis Enrique Weems 10/28/23 10:06: WILL COMPLETE WHEN PT RETURNS TO FLOOR Original Note: PT IN MRI UNABLE TO COMPLETE [facility]
--- NOTE | 2023-10-28 10:36 | ED.RN ---
[facility] NOT COMPLETE PT IN MRI, WILL DO WHEN PT RETURNS
--- NOTE | 2023-10-28 12:25 | STROKE.CONS ---
Assessment and Plan: Stroke Assessment/Plan CRISTY MCRAE is a 73 F with a history of HTN, hypothyroidism who presents with difficulty expressing and right sided weakness. Neurological examination shows aphasia and Right hemiparesis. Neuroimaging shows Left parafalcine parietal stroke on MRI. Incidental meningioma left parietal. CTA: No LVO. Plan 1. ASA 2. HTN: Permissive HTN in acute phase 3. Stroke w/up ECHO, FLP, hbA1c 4. PT, OT eval 5. Speech and swallow evaluation. Thanks for consult I spent 35 minutes in evaluation of this patient HPI Consult Data Date of Consult: 10/28/23 HPI Narrative HPI Narrative: CRISTY MCRAE, is a 73 F with HTN, hypothyroidism who presents to the emergency room via EMS as a prehospital stroke eval. states that she went to bed around 20 to 30 hours last night. states that around 0600 hrs. he was in bed and she got up and walked to the bathroom. He states that she did not speak with them. He states that he heard a noise coming from the bathroom and asked that the door if she was okay. She was on the ground and non verbal. EMS notes that she is not moving the right side of her body. states that she does not take any blood thinners. telestroke was called and not a TNK candidate as she last spoke last night. [facility] Medical History (Updated 10/28/23 @ 08:[address] Shay Santiago, ) Ectopic atrial tachycardia Non-rheumatic tricuspid valve insufficiency Nonrheumatic mitral (valve) insufficiency Cardiac murmur Syncope and collapse Nonrheumatic aortic valve insufficiency Diseases of tricuspid valve Hypothyroidism Benign essential hypertension Home Medications ?Medication ?Instructions ?Recorded ?Last Taken ?Type cholecalciferol (vitamin D3) 50 2,000 unit PO QDAY health 07/27/17 10/27/23 09:00 History mcg (2,000 unit) capsule maintenance levothyroxine 100 mcg capsule 100 mcg PO DAILY thyroid 08/10/20 10/27/23 08:00 History levothyroxine 112 mcg capsule 112 mcg PO .Thursday thyroid 08/10/20 10/25/23 08:00 History calcium carbonate 600 mg PO BID health maintenance 08/05/21 10/27/23 21:00 History hydrocortisone 2.5 % topical cream 1 applic [place] DAILY PRN hemorrhoids 07/19/22 Unknown Rx with perineal applicator #30 grams (Anusol-HC) amlodipine 5 mg tablet 5 mg PO QDAY #90 tabs 08/11/23 10/27/23 09:00 Rx Allergy/AdvReac Type Severity Reaction Status Date / Time adhesive Allergy Hives Verified 10/28/23 07:03 egg AdvReac Upset Verified 10/28/23 07:03 Stomach Family History Father Hypertension Mother Lymphoma Brother Bipolar 1 disorder Pneumonia Brother Hypertension Surgical History History of laparoscopy Social History Smoking Status: Never smoker alcohol intake: never substance use type: does not use caffeine: No what type of physical activity do you participate in: bicycling frequency: 5-6 times per week duration: 45-60 minutes/day seatbelt use: always do you feel safe at home: Yes Vital Signs Vital Signs Vital Signs: 10/28/23 07:04 10/28/23 07:05 10/28/23 07:26 Temperature 97.8 F 97.8 F Temperature Source Temporal Temporal Pulse Rate 59 L 60 Respiratory Rate 16 24 H Blood Pressure 131/60 H 130/64 H Blood Pressure Mean 83 86 Blood Pressure Source Blood Pressure Position Blood Pressure Location Pulse Ox 97 99 98 Oxygen Delivery Method Room Air Room Air Room Air Oxygen Flow Rate (L/min) 10/28/23 07:35 10/28/23 08:02 10/28/23 08:05 Temperature 97.8 F 96.2 F L Temperature Source Temporal Core Pulse Rate 68 60 55 L Respiratory Rate 18 16 16 Blood Pressure 141/99 H 136/59 H 136/59 H Blood Pressure Mean 113 84 84 Blood Pressure Source Blood Pressure Position Blood Pressure Location Pulse Ox 98 98 98 Oxygen Delivery Method Room Air Nasal Cannula Nasal Cannula Oxygen Flow Rate (L/min) 2 2 10/28/23 08:30 10/28/23 09:00 10/28/23 09:00 Temperature 96.5 F L 96.6 F L 96.6 F L Temperature Source Core Core Core Pulse Rate 56 L 62 59 L Respiratory Rate 16 16 16 Blood Pressure 126/60 H 134/65 H 134/65 H Blood Pressure Mean 82 88 88 Blood Pressure Source Blood Pressure Position Blood Pressure Location Pulse Ox 98 97 98 Oxygen Delivery Method Nasal Cannula Nasal Cannula Nasal Cannula Oxygen Flow Rate (L/min) 2 2 2 10/28/23 09:30 10/28/23 10:55 10/28/23 11:00 Temperature 96.8 F L 97.5 F L 97.5 F L Temperature Source Core Core Core Pulse Rate 61 60 59 L Respiratory Rate 18 14 100 H Blood Pressure 135/64 H 117/102 H 130/58 H Blood Pressure Mean 87 107 82 Blood Pressure Source Blood Pressure Position Blood Pressure Location Pulse Ox 98 100 100 Oxygen Delivery Method Nasal Cannula Nasal Cannula Nasal Cannula Oxygen Flow Rate (L/min) 2 2 2 10/28/23 11:30 Temperature 97.4 F L Temperature Source Temporal Pulse Rate 58 L Respiratory Rate 18 Blood Pressure 130/70 H Blood Pressure Mean 90 Blood Pressure Source Monitor Blood Pressure Position Semi-Fowlers Blood Pressure Location Left Arm Pulse Ox 99 Oxygen Delivery Method Room Air Oxygen Flow Rate (L/min) Weight Weight: 93.8 kg Body Mass Index (BMI) 35.4 EEG Results Procedure Details EEG Procedure Details: CRISTY MCRAE is a 73 year old F with a past medical history of , who presents for evaluation of Electroencephalogram on DATE at TIME NIHSS NIHSS Nursing Documentation NIHSS Nursing Documentation: NIHSS: Ischemic Stroke/TIA Start: 10/28/23 11:27 Text: For PCU Patients: NIH and Neuro Check every 4 Status: Active hours, PRN and with change in RN caregiver. Freq: [id number] Protocol: Activity Type Activity Date Activity User E-sign Co-sign Detail Recorded Client Recorded Date Recorded By Document 10/28/23 11:30 8 Desktop 10/28/23 11:50 8 10/28/23 11:30 NIH Stroke Scale [NIHSS] A score of 0 is normal or asymptomatic . Total possible score is 42. Inpatient: RN or Physician to activate a stroke alert for onset of new stroke symptoms or with NIHSS increase >/= 3 points. Following change in neurological status, NIHSS will be performed per physician order or more frequently PRN. -1a. Level of Consciousness Alert; keenly responsive -1b. LOC Questions Answers BOTH questions correctly. -1c. LOC Commands Performs both tasks correctly . -2. Best Gaze Normal -3. Visual No visual loss -4. Facial Palsy Normal symmetrical movements -5a. Left Arm No drift; arm holds 90 (or 45 ) degrees for full 10 seconds -5b. Right Arm No drift; arm holds 90 (or 45 ) degrees for full 10 seconds -6a. Left Leg No drift; leg holds 30-degree position for full 5 seconds -6b. Right Leg No movement -7. Limb Ataxia Present in 1 limb -8. Sensory Normal; no sensory loss -9. Best Language Mild-to- moderate aphasia; -10. Dysarthria Mild-to- moderate dysarthria; -11. Extinction and Inattention No abnormality -Total 7 Query Text:A score of 0 is normal or asymptomatic. Total possible score is 42 . ED: Notify Physician for NIHSS increase by > / = 3 points. Inpatient: RN or Physician to activate a stroke alert for NIHSS increase of > / = 3 points. Coma Scale [Assess] -Eye Opening Spontaneous -Motor Obeys Commands -Verbal Oriented [Total] -Coma Scale Total 15 NIHSS 1a. Level of Consciousness: Alert; keenly responsive 1b. LOC Questions: Answers neither question correctly. 1c. LOC Commands: Performs neither task correctly. 2. Best Gaze: Normal 3. Visual: No visual loss 4. Facial Palsy: Normal symmetrical movements 5a. Left Arm: No drift; arm holds 90 (or 45) degrees for full 10 seconds 5b. Right Arm: Drift; arm drifts downward but doesn?t hit the bed 6a. Left Leg: No drift; leg holds 30-degree position for full 5 seconds 6b. Right Leg: Some effort against gravity; 7. Limb Ataxia: Absent 8. Sensory: Normal; no sensory loss 9. Best Language: Mute, global aphasia; 10. Dysarthria: Severe dysarthria; 11. Extinction and Inattention: No abnormality Total: 12 Physical Exam Eyes EOMs intact bilaterally Resp normal respiratory effort Neuro Neuro Narrative: Awake, alert, mute Not following commands Moves the left side well Right hemiparesis Lab / Micro Data 10/28/23 07:41 10/28/23 08:25 Labs: Laboratory Results - last 24 hr 10/28/23 07:41: WBC 5.9, RBC 4.82, Hgb 14.0, Hct 42.9, MCV 89.0, MCH 29.0, MCHC 32.6, RDW Std Deviation 44.4 H, RDW Coeff of Judy 13.6, Plt Count TNP, MPV 9.6, Immature Gran % (Auto) 0.700, Neut % (Auto) 64.0, Lymph % (Auto) 22.1, Cloud % (Auto) 7.9, Eos % (Auto) 4.4, Baso % (Auto) 0.9, Absolute Neuts (auto) 3.8, Absolute Lymphs (auto) 1.29, Nucleated RBC % 0, Platelet Estimate SLT DEC, PT 13.1, INR 1.0, APTT < 20.0 L, Sodium Cancelled, Potassium Cancelled, Chloride Cancelled, Carbon Dioxide Cancelled, Anion Gap Cancelled, BUN Cancelled, Creatinine Cancelled, Estim Creat Clear Calc Cancelled, Est GFR (MDRD) Af Amer Cancelled, Est GFR (MDRD) Non-Af Cancelled, BUN/Creatinine Ratio Cancelled, Glucose Cancelled, Calcium Cancelled, Troponin I High Sens Cancelled 10/28/23 07:51: POC Glucose 105 10/28/23 07:58: Urine Color Yellow, Urine Clarity Clear, Urine pH 8.0, Ur Specific [place] 1.010, Urine Protein Negative, Urine Glucose (UA) Normal, Urine Ketones Negative, Urine Occult Blood Negative, Urine Nitrite Negative, Urine Bilirubin Negative, Urine Urobilinogen Normal, Ur Leukocyte Esterase Negative, Urine RBC 0-5 SEEN, Urine WBC 0-5 SEEN, Ur Squamous Epith Cells 0 SEEN, Urine Bacteria 0 SEEN, Urine Mucus 0 SEEN 10/28/23 08:25: Sodium 138, Potassium 3.9, Chloride 106, Carbon Dioxide 26.0, Anion Gap 6, BUN 19 H, Creatinine 1.27 H, Estim Creat Clear Calc 45.30, Est GFR (MDRD) Af Amer 53 L, Est GFR (MDRD) Non-Af 44 L, BUN/Creatinine Ratio 15.0, Glucose 103, Calcium 9.0, Troponin I High Sens 19 Imaging Radiology Impression Brain CT 10/28/23 07:05 IMPRESSION: 1. No acute intracranial abnormality. 2. Densely calcified dural-based mass that measures 3.5 x 1.6 x 2.6 cm along the left frontal convexity posterior superior medially consistent with a meningioma. No adjacent edema. 3. Mild generalized atrophy. Mild low density bilaterally in the deep white matter. This likely represents chronic small vessel ischemic changes in the deep white matter. ASSESSMENT: ASPECTS ([place] Stroke Program Early CT Score) is 10. N.B. : The above Results were Read Back by Devonte Alaniz MD to Shay Santiago MD, and understanding confirmed on 10/28/2023 07:33:10 (ET). Electronically Signed: Devonte Alaniz MD at 7:28 EDT , Head/Neck CTA 10/28/23 07:05 IMPRESSION: No large vessel occlusion or significant intracranial vascular abnormality. N.B. : The above Results were Read Back by Devonte Alaniz MD to Shay Santiago MD, and understanding confirmed on 10/28/2023 07:33:46 (ET). Electronically Signed: Devonte Alaniz MD at 7:32 EDT , Chest X-Ray 10/28/23 08:08 IMPRESSION: 1. No active pulmonary disease. 2. Cardiomegaly. 3. Suspect hiatal hernia. Electronically Signed: Anirudh Moore MD at 8:18 EDT , Brain MRI 10/28/23 09:03 IMPRESSION: 1. Involutional changes of the brain, as described above. 2. Subacute infarct in the parafalcine left parietal lobe. 3. 2.5 cm meningioma superior to the left parietal lobe. Electronically Signed: Anirudh Moore MD at 11:50 EDT , Active Medications Active Medications Active Medications: Current Medications Generic Name Dose Route Start Last Admin Trade Name Freq PRN Reason Stop Dose Admin Aspirin 300 mg 10/29/23 10:00 Aspirin 300 Mg Suppository RC DAILY [facility] Heparin Sodium (Porcine) 5,000 unit 10/28/23 12:00 Heparin Injection (Vial) 5,000 Unit/Ml Vial SC Q12 [facility] Hydralazine HCl 5 mg 10/28/23 11:27 Hydralazine 20 Mg/Ml Vial IV 10/29/23 11:27 Q30M PRN maintain BP parameters with HR <60 Sodium Chloride 1,000 mls @ 100 mls/hr 10/28/23 11:27 IV .Q10H [facility] Labetalol HCl 20 mg 10/28/23 07:04 Labetalol (Prefilled) 20 Mg/4 Ml IV 10/29/23 07:05 X1 PRN BLOOD PRESSURE Ondansetron HCl 4 mg 10/28/23 11:27 Ondansetron 4 Mg/2 Ml Vial IV Q8H PRN PRN NAUSEA/VOMITING Sodium Chloride 10 - 40 ml 10/28/23 11:37 0.9% Saline Lock 10 Ml Syringe IV UD PRN SALINE FLUSH
[2023-10-28] MEDS: Ondansetron 4 MG/2 ML Vial IV (12:26)
[2023-10-28] MEDS: 0.9% Normal Saline (1000mL) 1,000 ML 100 ML IV ×2 (12:26→22:26)
[2023-10-28] MEDS: Heparin Injection (Vial) 5,000 UNIT/ML VIAL 5000 UNIT SC ×2 (14:46→22:41)
[2023-10-28] MEDS: Aspirin E.C. 81 MG Tablet PO (18:07)
--- NOTE | 2023-10-28 18:27 | PCM.HP.STD ---
HPI - General General Date of Admission: 10/28/23 Date of Service: 10/28/23 Chief Complaint: Inability to speak, right-sided weakness HPI Narrative CRISTY MCRAE, is a 73 F who presents to the emergency room today at [facility] by squad after her found her on the floor of her bathroom. She was not able to speak and she was not able to move the right side of her body. Her last known time of wellness was 1030 last night. A stroke team was activated, patient had a CT of the brain which did not show any acute process or old stroke, she also had a CTA of the head and neck and no large vessel occlusion or significant intracranial vascular abnormality was noted. Patient's labs were remarkable for creatinine of 1.27 and a BUN of 19. Teleneurology did not recommend tenecteplase, patient will be admitted to PCU and receive aspirin rectally, she will undergo an MRI of the brain and NIH scores will be monitored. Swallowing eval will be performed, she may be able to be placed on her home meds and a statin and aspirin. [facility] Medical History (Updated 10/28/23 @ 08:[address] Shay Santiago, DO) Ectopic atrial tachycardia Non-rheumatic tricuspid valve insufficiency Nonrheumatic mitral (valve) insufficiency Cardiac murmur Syncope and collapse Nonrheumatic aortic valve insufficiency Diseases of tricuspid valve Hypothyroidism Benign essential hypertension Home Medications ?Medication ?Instructions ?Recorded ?Last Taken ?Type cholecalciferol (vitamin D3) 50 2,000 unit PO QDAY health 07/27/17 10/27/23 09:00 History mcg (2,000 unit) capsule maintenance levothyroxine 100 mcg capsule 100 mcg PO DAILY thyroid 08/10/20 10/27/23 08:00 History levothyroxine 112 mcg capsule 112 mcg PO .Thursday thyroid 08/10/20 10/25/23 08:00 History calcium carbonate 600 mg PO BID health maintenance 08/05/21 10/27/23 21:00 History hydrocortisone 2.5 % topical cream 1 applic [place] DAILY PRN hemorrhoids 07/19/22 Unknown Rx with perineal applicator #30 grams (Anusol-HC) amlodipine 5 mg tablet 5 mg PO QDAY #90 tabs 08/11/23 10/27/23 09:00 Rx Allergy/AdvReac Type Severity Reaction Status Date / Time adhesive Allergy Hives Verified 10/28/23 07:03 egg AdvReac Upset Verified 10/28/23 07:03 Stomach Family History Father Hypertension Mother Lymphoma Brother Bipolar 1 disorder Pneumonia Brother Hypertension Surgical History History of laparoscopy Social History Smoking Status: Never smoker alcohol intake: never substance use type: does not use caffeine: No what type of physical activity do you participate in: bicycling frequency: 5-6 times per week duration: 45-60 minutes/day seatbelt use: always do you feel safe at home: Yes ROS ROS Narrative Review of systems was not able to be obtained from the patient due to her aphasia, information was obtained from her medical record and her Vital Signs Vital Signs Vital Signs: 10/28/23 07:04 10/28/23 07:05 10/28/23 07:26 Temperature 97.8 F 97.8 F Temperature Source Temporal Temporal Pulse Rate 59 L 60 Respiratory Rate 16 24 H Blood Pressure 131/60 H 130/64 H Blood Pressure Mean 83 86 Blood Pressure Source Blood Pressure Position Blood Pressure Location Pulse Ox 97 99 98 Oxygen Delivery Method Room Air Room Air Room Air Oxygen Flow Rate (L/min) 10/28/23 07:35 10/28/23 08:02 10/28/23 08:05 Temperature 97.8 F 96.2 F L Temperature Source Temporal Core Pulse Rate 68 60 55 L Respiratory Rate 18 16 16 Blood Pressure 141/99 H 136/59 H 136/59 H Blood Pressure Mean 113 84 84 Blood Pressure Source Blood Pressure Position Blood Pressure Location Pulse Ox 98 98 98 Oxygen Delivery Method Room Air Nasal Cannula Nasal Cannula Oxygen Flow Rate (L/min) 2 2 10/28/23 08:30 10/28/23 09:00 10/28/23 09:00 Temperature 96.5 F L 96.6 F L 96.6 F L Temperature Source Core Core Core Pulse Rate 56 L 62 59 L Respiratory Rate 16 16 16 Blood Pressure 126/60 H 134/65 H 134/65 H Blood Pressure Mean 82 88 88 Blood Pressure Source Blood Pressure Position Blood Pressure Location Pulse Ox 98 97 98 Oxygen Delivery Method Nasal Cannula Nasal Cannula Nasal Cannula Oxygen Flow Rate (L/min) 2 2 2 10/28/23 09:30 10/28/23 10:55 10/28/23 11:00 Temperature 96.8 F L 97.5 F L 97.5 F L Temperature Source Core Core Core Pulse Rate 61 60 59 L Respiratory Rate 18 14 100 H Blood Pressure 135/64 H 117/102 H 130/58 H Blood Pressure Mean 87 107 82 Blood Pressure Source Blood Pressure Position Blood Pressure Location Pulse Ox 98 100 100 Oxygen Delivery Method Nasal Cannula Nasal Cannula Nasal Cannula Oxygen Flow Rate (L/min) 2 2 2 10/28/23 11:30 10/28/23 11:35 10/28/23 15:00 Temperature 97.4 F L 96.9 F L Temperature Source Temporal Temporal Pulse Rate 58 L 63 Respiratory Rate 18 16 Blood Pressure 130/70 H 143/71 H Blood Pressure Mean 90 95 Blood Pressure Source Monitor Monitor Blood Pressure Position Semi-Fowlers Semi-Fowlers Blood Pressure Location Left Arm Left Arm Pulse Ox 99 97 98 Oxygen Delivery Method Room Air Room Air Room Air Oxygen Flow Rate (L/min) 10/28/23 18:00 Temperature 97.2 F L Temperature Source Temporal Pulse Rate 62 Respiratory Rate Blood Pressure 146/70 H Blood Pressure Mean 95 Blood Pressure Source Monitor Blood Pressure Position Semi-Fowlers Blood Pressure Location Left Arm Pulse Ox 97 Oxygen Delivery Method Room Air Oxygen Flow Rate (L/min) Weight Weight: 93.8 kg Body Mass Index (BMI) 35.4 Physical Exam Const alert, no apparent distress and healthy appearing General Appearance: cooperative, well kempt and well developed Orientation / Consciousness: awake HEENT normocephalic, head/scalp atraumatic and moist oral mucous membranes Eyes PERRL, EOMs intact bilaterally and conjunctivae normal Neck supple, no JVD, thyroid normal and no carotid bruits General: trachea midline Resp normal respiratory effort, no retractions, no use of accessory muscles and clear to auscultation bilaterally Auscultation: Negative for rales, rhonchi or wheezes Cardio regular rate, regular rhythm, S1 normal heart sound, S2 normal heart sound, no murmurs, no rub and no gallops GI normal to inspection, nondistended, normoactive bowel sounds, soft to palpation, non-tender and non-distended Extremity no clubbing, cyanosis or edema Skin no rashes or lesions noted General Skin Exam: no breakdown Neuro CN's II-XII intact bilaterally Neuro Narrative: Patient is unable to flex her right arm or move her right leg, she is able to clinical manager my fingers with her right hand, patient is aphasic and is unable to speak Sensorium / Orientation: awake and alert Results Lab / Micro Data 10/29/23 05:43 10/29/23 05:43 Labs: Laboratory Results - last 24 hr 10/28/23 07:41: WBC 5.9, RBC 4.82, Hgb 14.0, Hct 42.9, MCV 89.0, MCH 29.0, MCHC 32.6, RDW Std Deviation 44.4 H, RDW Coeff of Judy 13.6, Plt Count TNP, MPV 9.6, Immature Gran % (Auto) 0.700, Neut % (Auto) 64.0, Lymph % (Auto) 22.1, [place] % (Auto) 7.9, Eos % (Auto) 4.4, Baso % (Auto) 0.9, Absolute Neuts (auto) 3.8, Absolute Lymphs (auto) 1.29, Nucleated RBC % 0, Platelet Estimate SLT DEC, PT 13.1, INR 1.0, APTT < 20.0 L, Sodium Cancelled, Potassium Cancelled, Chloride Cancelled, Carbon Dioxide Cancelled, Anion Gap Cancelled, BUN Cancelled, Creatinine Cancelled, Estim Creat Clear Calc Cancelled, Est GFR (MDRD) Af Amer Cancelled, Est GFR (MDRD) Non-Af Cancelled, BUN/Creatinine Ratio Cancelled, Glucose Cancelled, Calcium Cancelled, Troponin I High Sens Cancelled 10/28/23 07:51: POC Glucose 105 10/28/23 07:58: Urine Color Yellow, Urine Clarity Clear, Urine pH 8.0, Ur Specific [place] 1.010, Urine Protein Negative, Urine Glucose (UA) Normal, Urine Ketones Negative, Urine Occult Blood Negative, Urine Nitrite Negative, Urine Bilirubin Negative, Urine Urobilinogen Normal, Ur Leukocyte Esterase Negative, Urine RBC 0-5 SEEN, Urine WBC 0-5 SEEN, Ur Squamous Epith Cells 0 SEEN, Urine Bacteria 0 SEEN, Urine Mucus 0 SEEN 10/28/23 08:25: Sodium 138, Potassium 3.9, Chloride 106, Carbon Dioxide 26.0, Anion Gap 6, BUN 19 H, Creatinine 1.27 H, Estim Creat Clear Calc 45.30, Est GFR (MDRD) Af Amer 53 L, Est GFR (MDRD) Non-Af 44 L, BUN/Creatinine Ratio 15.0, Glucose 103, Calcium 9.0, Troponin I High Sens 19 Imaging Radiology Impression Brain CT 10/28/23 07:05 IMPRESSION: 1. No acute intracranial abnormality. 2. Densely calcified dural-based mass that measures 3.5 x 1.6 x 2.6 cm along the left frontal convexity posterior superior medially consistent with a meningioma. No adjacent edema. 3. Mild generalized atrophy. Mild low density bilaterally in the deep white matter. This likely represents chronic small vessel ischemic changes in the deep white matter. ASSESSMENT: ASPECTS ([place] Stroke Program Early CT Score) is 10. N.B. : The above Results were Read Back by Devonte Alaniz MD to Shay Santiago MD, and understanding confirmed on 10/28/2023 07:33:10 (ET). Electronically Signed: Devonte Alaniz MD at 7:28 EDT , Head/Neck CTA 10/28/23 07:05 IMPRESSION: No large vessel occlusion or significant intracranial vascular abnormality. N.B. : The above Results were Read Back by Devonte Alaniz MD to Shay Santiago MD, and understanding confirmed on 10/28/2023 07:33:46 (ET). Electronically Signed: Devonte Alaniz MD at 7:32 EDT , Chest X-Ray 10/28/23 08:08 IMPRESSION: 1. No active pulmonary disease. 2. Cardiomegaly. 3. Suspect hiatal hernia. Electronically Signed: Anirudh Moore MD at 8:18 EDT , Brain MRI 10/28/23 09:03 IMPRESSION: 1. Involutional changes of the brain, as described above. 2. Subacute infarct in the parafalcine left parietal lobe. 3. 2.5 cm meningioma superior to the left parietal lobe. Electronically Signed: Anirudh Moore MD at 11:50 EDT , ADDENDUM: 10/28/23 1246 IMPRESSION: 1. Involutional changes of the brain, as described above. 2. Subacute infarct in the parafalcine left parietal lobe. 3. 2.5 cm meningioma superior to the left parietal lobe. N.B. : The above Results were Read Back by Anirudh Moore MD to Essie Zhou RN, and understanding confirmed on 10/28/2023 12:39:18 (ET). Electronically Signed: Anirudh Moore MD at 11:50 EDT , Echocardiogram 10/28/23 09:03 Interpretation Summary The estimated ejection fraction is 65 %. No evidence for diastolic dysfunction. Trivial mitral valve insufficiency. Trivial aortic valve insufficiency. Ordering Physician: Serge Ingram Referring Physician: Joseph Dunaway Performed By: Shayy Elizabeth, RDCS, RVT Assessment & Plan Assessment/Plan (1) Acute stroke due to ischemia: PLAN: Plan 1. Acute ischemic stroke believed to be an left cerebral area-patient will be admitted to PCU, she will be seen by speech, PT and OT, if she is able to swallow she will need to be placed on a statin and oral aspirin, lipid profile will be obtained, patient will be seen by teleneurology and have an echocardiogram performed. #2 hypothyroidism-patient will remain on Synthroid if she is safe for oral intake #3 essential hypertension-patient's amlodipine will be held at the present time for permissive hypertension Total clinical time spent by myself addressing the patient's medical issues, reviewing all of her data, and collaborating with patient's care team: 55 minutes Charges/Coding Visit Charges Inpatient E&M: 09974 Init Hosp L2
[2023-10-28] MEDS: Atorvastatin Calcium 80 MG Tablet PO (22:45)
[2023-10-29 01:40] VITALS: BMI 35.4
[2023-10-29 03:26] VITALS: BP 124/60; PULSE 65; RESP 16; TEMP 36.6; O2SAT 95
[2023-10-29 05:54] LABS: Absolute Lymphocyte Count 0.86 X10^3/uL (0.83-4.51); Absolute Neutrophil Count 4.8 X10^3/uL (2.0-7.7); Basophil# 0.04 X10^3/uL; Basophil% 0.6 % (0-1); Eosinophil# 0.11 X10^3/uL; Eosinophils% 1.8 % (0-5); Hematocrit 39.2 % (37-47); Hemoglobin 12.8 g/dL (12.0-15.0); Lymphocyte # 0.86 X10^3/ul (0.83-4.51); Lymphocyte % 13.7 % (19-41); Mean Corp Hgb Conc 32.7 g/dL (32-36); Mean Corpuscular Hgb 29.4 pg (27.0-32.0); Mean Corpuscular Volume 90.1 fL (81-99); Mean Platelet Vol. 8.8 fl (6.2-12.0); Monocyte# 0.45 X10^3/uL; Monocyte% 7.2 % (0-10); NRBC Flagged by Analyzer 0 % (0-5); Neutrophil # 4.77 X10^3/uL (2.7-7.7); Neutrophil % 76.2 % (47-70); Platelet Count 152 K/mm3 (150-450); RBC Distribution Width CV 13.7 % (11.6-14.6); RBC Distribution Width SD 45.4 fl (35.1-43.9); Red Blood Count 4.35 M/mm3 (4.2-5.4); White Blood Count 6.3 K/mm3 (4.4-11.0)
[2023-10-29 06:19] LABS: Anion Gap 5 (5-15); BUN 15 mg/dL (7-18); BUN/Creat Ratio 15.3 RATIO (10-20); Calcium,Total 8.3 mg/dL (8.5-10.1); Chloride 107 mmol/L (98-107); Cholesterol 158 mg/dL (200); Creatinine, Serum 0.98 mg/dL (0.55-1.02); EST Glomerular Filtration Rate 60 mL/min (>60); Est Glom Filt Rate - Afr Amer 72 mL/min (>60); Estimated Creatinine Clearance 58.47 ml/min; Glucose 93 mg/dL (74-106); High Density Lipoprotein 73 mg/dL; Sodium Level 137 mmol/L (136-145); Triglycerides 79 mg/dL; Very Low Density Lipoprotein 16 mg/dL (5-40)
[2023-10-29] MEDS: Levothyroxine 100 MCG Tablet PO (06:31)
[2023-10-29] MEDS: 0.9% Normal Saline (1000mL) 1,000 ML 100 ML IV (06:31)
[2023-10-29 07:00] VITALS: PULSE 58
[2023-10-29 07:26] VITALS: BP 151/65; PULSE 63; RESP 16; TEMP 37.1; O2SAT 95
[2023-10-29 07:30] VITALS: O2SAT 95
[2023-10-29] MEDS: Heparin Injection (Vial) 5,000 UNIT/ML VIAL 5000 UNIT SC (09:02)
[2023-10-29] MEDS: Aspirin E.C. 81 MG Tablet PO (09:02)
[2023-10-29 10:00] VITALS: O2SAT 95
[2023-10-29 11:00] VITALS: BMI 35.4
--- NOTE | 2023-10-29 11:15 | CASEMGMT ---
TALIB CM Face to Face with patient for initial transition planning/care coordination assessment. RN CM introduced self and role at [facility]. Patient sitting in chair, alert and slightly confused, at bedside. Patient, with assistance from , willing to participate in assessment and is able to answer all questions appropriately. Care providers, pharmacy, and demographics verified. PCP: [facility] Specialists: Candy, clipping marker; Preferred Pharmacy: [facility] Insurance: [facility], [facility] Prescription Benefit: yes Living Will/HPOA: yes, Daniel Rolon LNOK: Living Arrangements: Patient lives in a single story home with 2 steps to enter. Patient was independent at home. Transportation: self, DME/HHC: Patient had higher toilet at home. No previous HHC or SNF. Therapy recommending Acute Rehab at discharge. TALIB MARTINEZ discussed with patient and , both agreeable and prefer [facility] Acute Rehab and declined list. Patient and state they have no further needs or concerns at this time. CM to follow for discharge planning needs that may arise. Disposition Plan: Patient to discharge to Acute Rehab when accepted and medically ready. Christine KEMP, RN, CM
[2023-10-29 11:26] VITALS: BP 122/56; PULSE 57; RESP 16; TEMP 37.1; O2SAT 97
--- NOTE | 2023-10-29 11:26 | CASEMGMT ---
Per RN CM patient and her are interested in [facility] Acute Rehab at d/c. SW made a referral to [facility]. Await response. Lisbet Mtz MSW SARBJIT
--- NOTE | 2023-10-29 11:45 | CASEMGMT ---
Addendum entered by Lisbet Mtz 10/29/23 12:25: DUANE notified patient and her that [facility] Acute Rehab can take patient. SW let them both know patient will likely go today. DUANE also provided them with a pamphlet for [facility] Acute Rehab Unit. Lisbet SCHAFFER Original Note: [facility] Acute Rehab will take patient. SW notified RN and physician. Physician will send patient today. SW went to notify patient and her , but teleneurology was visiting with patient. Plan: d/c to [facility] Acute Rehab Unit Lisbet SCHAFFER
--- NOTE | 2023-10-29 11:57 | STROKE.CONS ---
Assessment and Plan: Stroke Assessment/Plan CRISTY MCRAE is a 73 F with a history of HTN, hypothyroidism who presents with difficulty expressing and right sided weakness. Neurological examination shows Right lower extremity weakness. Neuroimaging shows Left parafalcine parietal stroke on MRI. Incidental meningioma left parietal. CTA: No LVO. EF okay, LDL:69. Left JIMMY stroke cryptogenic in etiology. Plan 1. ASA, statin 2. HTN: Permissive HTN in acute phase 3. Stroke w/up hbA1c 4. PT, OT eval 5. Cardiac event monitor upon DC Thanks for consult I spent 35 minutes in evaluation of this patient HPI Consult Data Date of Consult: 10/29/23 HPI Narrative HPI Narrative: CRISTY MCRAE, is a 73 F with HTN, hypothyroidism who presents to the emergency room via EMS as a prehospital stroke eval. states that she went to bed around 20 to 30 hours last night. states that around 0600 hrs. he was in bed and she got up and walked to the bathroom. He states that she did not speak with them. He states that he heard a noise coming from the bathroom and asked that the door if she was okay. She was on the ground and non verbal. EMS notes that she is not moving the right side of her body. states that she does not take any blood thinners. telestroke was called and not a TNK candidate. She is getting better in her communication. [facility] Medical History (Updated 10/28/23 @ 08:[address] Shay Santiago, DO) Ectopic atrial tachycardia Non-rheumatic tricuspid valve insufficiency Nonrheumatic mitral (valve) insufficiency Cardiac murmur Syncope and collapse Nonrheumatic aortic valve insufficiency Diseases of tricuspid valve Hypothyroidism Benign essential hypertension Home Medications ?Medication ?Instructions ?Recorded ?Last Taken ?Type cholecalciferol (vitamin D3) 50 2,000 unit PO QDAY health 07/27/17 10/27/23 09:00 History mcg (2,000 unit) capsule maintenance levothyroxine 100 mcg capsule 100 mcg PO DAILY thyroid 08/10/20 10/27/23 08:00 History levothyroxine 112 mcg capsule 112 mcg PO .Thursday thyroid 08/10/20 10/25/23 08:00 History calcium carbonate 600 mg PO BID health maintenance 08/05/21 10/27/23 21:00 History hydrocortisone 2.5 % topical cream 1 applic DE DAILY PRN hemorrhoids 07/19/22 Unknown Rx with perineal applicator #30 grams (Anusol-HC) amlodipine 5 mg tablet 5 mg PO QDAY #90 tabs 08/11/23 10/27/23 09:00 Rx Allergy/AdvReac Type Severity Reaction Status Date / Time adhesive Allergy Hives Verified 10/28/23 07:03 egg AdvReac Upset Verified 10/28/23 07:03 Stomach Family History Father Hypertension Mother Lymphoma Brother Bipolar 1 disorder Pneumonia Brother Hypertension Surgical History History of laparoscopy Social History Smoking Status: Never smoker alcohol intake: never substance use type: does not use caffeine: No what type of physical activity do you participate in: bicycling frequency: 5-6 times per week duration: 45-60 minutes/day seatbelt use: always do you feel safe at home: Yes Vital Signs Vital Signs Vital Signs: 10/28/23 15:00 10/28/23 18:00 10/28/23 19:38 Temperature 96.9 F L 97.2 F L 98.3 F Temperature Source Temporal Temporal Oral Pulse Rate 63 62 62 Pulse Strength Respiratory Rate 16 16 Respiratory Effort Respiratory Depth Respiratory Pattern Blood Pressure 143/71 H 146/70 H 138/66 H Blood Pressure Mean 95 95 90 Blood Pressure Source Monitor Monitor Monitor Blood Pressure Position Semi-Fowlers Semi-Fowlers Semi-Fowlers Blood Pressure Location Left Arm Left Arm Left Arm Pulse Ox 98 97 97 Oxygen Delivery Method Room Air Room Air Room Air 10/28/23 22:00 10/28/23 23:38 10/29/23 03:26 Temperature 98 F 97.8 F Temperature Source Oral Oral Pulse Rate 57 L 65 Pulse Strength Respiratory Rate 16 16 Respiratory Effort Normal Non-Labored Respiratory Depth Normal Respiratory Pattern Normal Blood Pressure 130/74 H 124/60 H Blood Pressure Mean 92 81 Blood Pressure Source Monitor Monitor Blood Pressure Position Semi-Fowlers Semi-Fowlers Blood Pressure Location Left Arm Left Arm Pulse Ox 96 95 Oxygen Delivery Method Room Air Room Air Room Air 10/29/23 07:00 10/29/23 07:26 10/29/23 09:12 Temperature 98.7 F Temperature Source Temporal Pulse Rate 58 L 63 Pulse Strength Normal (2+) Respiratory Rate 16 Respiratory Effort Respiratory Depth Respiratory Pattern Blood Pressure 151/65 H Blood Pressure Mean 93 Blood Pressure Source Monitor Blood Pressure Position Semi-Fowlers Blood Pressure Location Left Arm Pulse Ox 95 Oxygen Delivery Method Room Air 10/29/23 09:17 10/29/23 10:00 10/29/23 11:26 Temperature 98.8 F Temperature Source Oral Pulse Rate 57 L Pulse Strength Respiratory Rate 16 Respiratory Effort Normal Non-Labored Respiratory Depth Normal Respiratory Pattern Normal Blood Pressure 122/56 H Blood Pressure Mean 78 Blood Pressure Source Monitor Blood Pressure Position Sitting Blood Pressure Location Left Arm Pulse Ox 95 97 Oxygen Delivery Method Room Air Room Air Weight Weight: 93.8 kg Body Mass Index (BMI) 35.4 EEG Results Procedure Details EEG Procedure Details: CRISTY MCRAE is a 73 year old F with a past medical history of , who presents for evaluation of Electroencephalogram on DATE at TIME NIHSS NIHSS Nursing Documentation NIHSS Nursing Documentation: NIHSS: Ischemic Stroke/TIA Start: 10/28/23 11:27 Text: For PCU Patients: NIH and Neuro Check every 4 Status: Active hours, PRN and with change in RN caregiver. Freq: [id number] Protocol: Activity Type Activity Date Activity User E-sign Co-sign Detail Recorded Client Recorded Date Recorded By Document 10/29/23 11:26 desktop 10/29/23 11:52 10/29/23 11:26 NIH Stroke Scale [NIHSS] A score of 0 is normal or asymptomatic . Total possible score is 42. Inpatient: RN or Physician to activate a stroke alert for onset of new stroke symptoms or with NIHSS increase >/= 3 points. Following change in neurological status, NIHSS will be performed per physician order or more frequently PRN. -1a. Level of Consciousness Alert; keenly responsive -1b. LOC Questions Answers one question correctly. -1c. LOC Commands Performs both tasks correctly . -2. Best Gaze Normal -3. Visual No visual loss -4. Facial Palsy Normal symmetrical movements -5a. Left Arm No drift; arm holds 90 (or 45 ) degrees for full 10 seconds -5b. Right Arm Drift; arm drifts downward but doesn?t hit the bed -6a. Left Leg No drift; leg holds 30-degree position for full 5 seconds -6b. Right Leg No effort against gravity ; leg falls to bed immediately -7. Limb Ataxia Absent -8. Sensory Normal; no sensory loss -9. Best Language Mild-to- moderate aphasia; -10. Dysarthria Mild-to- moderate dysarthria; -11. Extinction and Inattention No abnormality -Total 7 Query Text:A score of 0 is normal or asymptomatic. Total possible score is 42 . ED: Notify Physician for NIHSS increase by > / = 3 points. Inpatient: RN or Physician to activate a stroke alert for NIHSS increase of > / = 3 points. Coma Scale [Assess] -Eye Opening Spontaneous -Motor Obeys Commands -Verbal Confused [Total] -Coma Scale Total 14 NIHSS 1a. Level of Consciousness: Alert; keenly responsive 1b. LOC Questions: Answers BOTH questions correctly. 1c. LOC Commands: Performs both tasks correctly. 2. Best Gaze: Normal 3. Visual: No visual loss 4. Facial Palsy: Normal symmetrical movements 5a. Left Arm: No drift; arm holds 90 (or 45) degrees for full 10 seconds 5b. Right Arm: Drift; arm drifts downward but doesn?t hit the bed 6a. Left Leg: No drift; leg holds 30-degree position for full 5 seconds 6b. Right Leg: No effort against gravity; leg falls to bed immediately 7. Limb Ataxia: Absent 8. Sensory: Normal; no sensory loss 9. Best Language: No aphasia; normal 10. Dysarthria: Normal 11. Extinction and Inattention: No abnormality Total: 4 Physical Exam Const alert and oriented x3 General Appearance: cooperative Orientation / Consciousness: awake Exam Limitations: no limitations Resp normal respiratory effort Neuro Neuro Narrative: Awake, alert, oriented X3 Cranial nerves 2-12 intact Mild RUE drift RLE plegic Rest 5/5 Sensation: intact Lab / Micro Data 10/29/23 05:43 10/29/23 05:43 Labs: Laboratory Results - last 24 hr 10/29/23 05:43: WBC 6.3, RBC 4.35, Hgb 12.8, Hct 39.2, MCV 90.1, MCH 29.4, MCHC 32.7, RDW Std Deviation 45.4 H, RDW Coeff of Judy 13.7, Plt Count 152, MPV 8.8, Immature Gran % (Auto) 0.500, Neut % (Auto) 76.2 H, Lymph % (Auto) 13.7 L, Garza % (Auto) 7.2, Eos % (Auto) 1.8, Baso % (Auto) 0.6, Absolute Neuts (auto) 4.8, Absolute Lymphs (auto) 0.86, Nucleated RBC % 0, Sodium 137, Potassium 4.0, Chloride 107, Carbon Dioxide 25.0, Anion Gap 5, BUN 15, Creatinine 0.98, Estim Creat Clear Calc 58.47, Est GFR (MDRD) Af Amer 72, Est GFR (MDRD) Non-Af 60, BUN/Creatinine Ratio 15.3, Glucose 93, Calcium 8.3 L, Triglycerides 79, Cholesterol 158, LDL Cholesterol 69, VLDL Cholesterol 16, HDL Cholesterol 73 Imaging Radiology Impression Brain MRI 10/28/23 09:03 IMPRESSION: 1. Involutional changes of the brain, as described above. 2. Subacute infarct in the parafalcine left parietal lobe. 3. 2.5 cm meningioma superior to the left parietal lobe. Electronically Signed: Anirudh Moore MD at 11:50 EDT , ADDENDUM: 10/28/23 1246 IMPRESSION: 1. Involutional changes of the brain, as described above. 2. Subacute infarct in the parafalcine left parietal lobe. 3. 2.5 cm meningioma superior to the left parietal lobe. N.B. : The above Results were Read Back by Anirudh Moore MD to Essie Zhou RN, and understanding confirmed on 10/28/2023 12:39:18 (ET). Electronically Signed: Anirudh Moore MD at 11:50 EDT , Echocardiogram 10/28/23 09:03 Interpretation Summary The estimated ejection fraction is 65 %. No evidence for diastolic dysfunction. Trivial mitral valve insufficiency. Trivial aortic valve insufficiency. Ordering Physician: Serge Ingram Referring Physician: Joseph Dunaway Performed By: Shayy Elizabeth, YUKO, RVT Active Medications Active Medications Active Medications: Current Medications Generic Name Dose Route Start Last Admin Trade Name Freq PRN Reason Stop Dose Admin Aspirin 81 mg 10/28/23 17:00 10/29/23 09:02 Aspirin E.C. 81 Mg Tablet PO 81 mg DAILYCM AMADOR Administration Atorvastatin Calcium 80 mg 10/28/23 22:00 10/28/23 22:45 Atorvastatin Calcium 80 Mg Tablet PO 80 mg QHS AMADOR Administration Heparin Sodium (Porcine) 5,000 unit 10/28/23 12:00 10/29/23 09:02 Heparin Injection (Vial) 5,000 Unit/Ml Vial SC 5,000 unit Q12 AMADOR Administration Sodium Chloride 1,000 mls @ 100 mls/hr 10/28/23 11:27 10/29/23 06:31 IV 100 mls/hr .Q10H AMADOR Administration Levothyroxine Sodium 112 mcg 11/01/23 06:00 Levothyroxine 112 Mcg Tablet PO Palomino@0600 AMADOR Levothyroxine Sodium 100 mcg 10/29/23 06:00 10/29/23 06:31 Levothyroxine 100 Mcg Tablet PO 100 mcg MoTuWeThFrSa@0600 AMADOR Administration Ondansetron HCl 4 mg 10/28/23 11:27 10/28/23 12:26 Ondansetron 4 Mg/2 Ml Vial IV 4 mg Q8H PRN PRN Administration NAUSEA/VOMITING Sodium Chloride 10 - 40 ml 10/28/23 11:37 0.9% Saline Lock 10 Ml Syringe IV UD PRN SALINE FLUSH
--- NOTE | 2023-10-29 12:41 | CASEMGMT ---
Social Work SW met with pt and completed PHQ9 depression screen as pt is diagnosed with stroke. Score of 02. Pt and spouse educated to correlation between stroke and depression. Pt denies depression at this time. DARA Che
--- NOTE | 2023-10-29 13:43 | PCM.TXEXTCAR ---
Diet Diet Order/Speech Therapy: 10/28/23 11:37 Diet: Cardiac - Heart Healthy Is pt able to select menu?: Yes Diet Comments: allergic to egg Routine Orders/Code Status Code Status: Full Code Therapies Weight Bearing: Weight bearing as tolerated Physical Therapy: Eval and Treat Occupational Therapy: Eval and Treat Speech Therapy: Eval and Treat Problem/Diagnosis (1) Acute stroke due to ischemia: Status: Acute Code(s): I63.9 - Cerebral infarction, unspecified Plan 1. Acute ischemic stroke believed to be an left cerebral area-patient will be admitted to PCU, she will be seen by speech, PT and OT, if she is able to swallow she will need to be placed on a statin and oral aspirin, lipid profile will be obtained, patient will be seen by teleneurology and have an echocardiogram performed. #2 hypothyroidism-patient will remain on Synthroid if she is safe for oral intake #3 essential hypertension-patient's amlodipine will be held at the present time for permissive hypertension Total clinical time spent by myself addressing the patient's medical issues, reviewing all of her data, and collaborating with patient's care team: 55 minutes Allergies/Procedures Done in Hospital Allergies adhesive Allergy (Verified 10/28/23 07:03) Hives egg Adverse Reaction (Verified 10/28/23 07:03) Upset Stomach Procedures: 2-D Echocardiogram Type of Care/Length of Stay Estimated LOS: Convalescent Care Less Than 30 days Type of Care Needed: Acute Rehab Rehab Potential: Good Prognosis: Good Additional Orders/Day of Discharge H&P will serve as current which was dated: 10/28/23 Day of Discharge: 10/29/23 Dietary and Speech Recommendations Dietitian Recommendations/Changes: Continue cardiac diet as ordered Monitor need for ONS pending po intake/wt trends Interview pt at time of follow up re: diet/wt hx, etc and make rec as indicated Speech Linguistic Eval Summary: Pt. presents w/ severe to profound cognitive-communicative deficits following L acute CVA. DIRECTOR OF GOLF trialed multi-means of communication as pt. was unable to verbally communicate despite max ST prompting. Orientation: DIRECTOR OF GOLF provided pt. w/ written choice array of 3 to ID first name only w/ ST model. Pt. unable to complete task. DIRECTOR OF GOLF wrote down written YES and NO w/ an X under no and check under yes on whiteboard. Along w/ ST gestures (shaking head) - tasked pt. w/ answering biological yes/no's w/ pt. success 100% (self, time and place). Auditory Comprehension - Pt. is able to follow simple 1 step commands w/ ST model (total A) w/ 80% acc. W/o ST model - unable to follow commands auditorily presented. Able to answer simple Y/N's (e.g. are there 90 mins in a hour?) using written Y/N whiteboard w/ 100% acc (5/5). Increased complexity to complex Y/N's (e.g. is your arm longer than your leg?) using written Y/N whiteboard w/ 33% acc (/3). Verbal Expression - Pt. unable to produce any verbal speech despite ST. Attempted w/ repeating bilabials w/ 0% success. Counting 1-10 w/ faded cueing 0% success. Discharge Plan Admission Admit Date/Time: 10/28/23 08:50 Primary Reason for Your Visit: Subacute infarct in the parafalcine left parietal lobe, right hemiparesis Attending Provider: Serge Ingram Primary Care Provider: Joseph Dunaway Consulting Providers: Александр Mckay; Reynaldo Daugherty; Velvet Mendoza; Cate Bloom; Magdalena Chamorro; Tarik Salomon; Deya Avila; Gordo Norman; Volodymyr Rod; Randy De Leon; Mandie Copeland; Oscar Chaudhary; Suzanne Guerrero; González Snyder; Yamilka Moreno; Lakhwinder Rehman; Chaya Mendoza; Cameron Wyatt; Madhavi Camilo; Obinna,Jeovany Instructions Additional Instructions / Restrictions: Patient will need a prescription for a 30-day Holter monitor upon discharge from the rehab department Discharge Orders/Prescriptions Prescriptions: New atorvastatin 80 mg Tablet 80 mg PO QHS Qty: 0 0RF aspirin 81 mg Tablet,Delayed Release (Dr/Ec) 81 mg PO DAILYCM Qty: 1 0RF levothyroxine 100 mcg Tablet 100 mcg PO MoTuWeThFrSa@0600 Qty: 0 0RF heparin (porcine) 5,000 unit/mL Solution 5,000 unit subcut Q12 Qty: 25 0RF levothyroxine 112 mcg Tablet 112 mcg PO Palomino@0600 Qty: 0 0RF acetaminophen 325 mg tablet 650 mg PO Q6H PRN (Reason: pain) Qty: 1 0RF Continued cholecalciferol (vitamin D3) 2,000 unit capsule 2,000 unit PO QDAY calcium carbonate 600 mg calcium (1,500 mg) tablet 600 mg PO BID Discontinued levothyroxine 112 mcg capsule 112 mcg PO .Thursday levothyroxine 100 mcg capsule 100 mcg PO DAILY Rx Instructions: EXcept for Thursday hydrocortisone [Anusol-HC] 2.5 % cream with perineal applicator 1 applic ME DAILY PRN (Reason: hemorrhoids) Qty: 30 0RF amlodipine 5 mg tablet 5 mg PO QDAY Qty: 90 3RF Referrals / Follow Up: Joseph Dunaway MD [Primary Care Provider] - Disposition Disposition (needs filled in before D/C Order can be placed): Inpatient Rehab Unit/Facility
--- NOTE | 2023-10-29 13:55 | PCM.DC.SUM ---
Providers Date of Admission: 10/28/23 Date of Discharge: 10/29/23 Primary Care Physician: Dr. Joseph Dunaway MD Consultations 10/28/23 11:27 Consult: Tele-Neurology Routine Consulting Provider: [facility] Reason for Consult: Acute Ischemic Stroke/TIA EMERGENT Consult: No MD Notified: Yes Date Notified: 10/28/23 Time Notified: 08:54 Method of Notification: Answering Service Nursing Unit Staff Notify [facility] of Tele-Neurology Consult: Yes Reason For Visit: LEFT CEREBRAL ISCHEMIC STROKE Diagnosis Discharge Diagnosis (1) Acute stroke due to ischemia: Status: Acute Code(s): I63.9 - Cerebral infarction, unspecified Plan 1. Acute ischemic stroke believed to be an left cerebral area-patient will be admitted to PCU, she will be seen by speech, PT and OT, if she is able to swallow she will need to be placed on a statin and oral aspirin, lipid profile will be obtained, patient will be seen by teleneurology and have an echocardiogram performed. #2 hypothyroidism-patient will remain on Synthroid if she is safe for oral intake #3 essential hypertension-patient's amlodipine will be held at the present time for permissive hypertension Total clinical time spent by myself addressing the patient's medical issues, reviewing all of her data, and collaborating with patient's care team: 55 minutes Medications at Discharge Home Medications cholecalciferol (vitamin D3) 50 mcg (2,000 unit) capsule 2,000 unit PO QDAY health maintenance 07/27/17 calcium carbonate 600 mg PO BID health maintenance 08/05/21 acetaminophen 325 mg tablet 650 mg (2 x 325 mg) PO Q6H PRN pain #1 TAB 10/29/23 aspirin 81 mg tablet,delayed release 81 mg PO DAILY heart health #1 TAB 10/29/23 atorvastatin 80 mg tablet 80 mg PO QHS cholesterol #0 tabs 10/29/23 heparin (porcine) 5,000 unit/mL injection solution 5,000 unit subcut Q12 blood thinner #25 mL 10/29/23 levothyroxine 100 mcg tablet 100 mcg PO MoTuWeThFrSa@0600 thyroid #0 tabs 10/29/23 levothyroxine 112 mcg tablet 112 mcg PO Palomino@0600 thyroid #0 tabs 10/29/23 Hospital Course Operations None Procedures 2-D Echocardiogram Summary of Care Provided Minutes Spent on Discharge: 31 Hospital Course: This 73-year-old white female was seen in the emergency room at [facility] after being transported by squad due to inability to speak and right-sided weakness. Stroke alert was called, her last well time had been 1030 the night before so she was not a candidate to receive tenecteplase. Patient underwent imaging studies which showed no evidence of stroke, CTA of the head and neck did not show any evidence of large vessel occlusive vascular disease. Labs were remarkable for a creatinine of 1.27 and BUN of 19. Patient was admitted to PCU, she passed her swallow eval and was placed on a statin and aspirin, she was seen by PT OT and speech therapy as well as teleneurology. MRI was performed, it showed the presence of meningioma and the left JIMMY stroke-teleneurology felt this was cryptogenic in nature. Patient underwent a echocardiogram which showed no evidence of right to left interatrial shunt. Patient was excepted in the rehab unit at [facility] for inpatient rehab services. On 10/29/2023, patient was seen and examined:alert, no apparent distress and healthy appearing General Appearance: cooperative, well kempt and well developed Orientation / Consciousness: awake HEENT normocephalic, head/scalp atraumatic and moist oral mucous membranes Eyes PERRL, EOMs intact bilaterally and conjunctivae normal Neck supple, no JVD, thyroid normal and no carotid bruits General: trachea midline Resp normal respiratory effort, no retractions, no use of accessory muscles and clear to auscultation bilaterally Auscultation: Negative for rales, rhonchi or wheezes Cardio regular rate, regular rhythm, S1 normal heart sound, S2 normal heart sound, no murmurs, no rub and no gallops GI normal to inspection, nondistended, normoactive bowel sounds, soft to palpation, non-tender and non-distended Extremity no clubbing, cyanosis or edema Skin no rashes or lesions noted General Skin Exam: no breakdown Neuro CN's II-XII intact bilaterally, patient is able to follow simple commands Neuro Narrative: Patient is unable to flex her right arm or move her right leg, she is able to unload associate my fingers with her right hand, patient has severe expressive aphasia and is able to only Ator a few words Sensorium / Orientation: awake and alert Patient was discharged to the rehab unit at [facility] stable condition on 10/29/2023 Weight / BMI Weight Weight: 93.8 kg Body Mass Index (BMI) 35.4 ABG / Lab / Microbiology Data 10/29/23 05:43 10/29/23 05:43 Laboratory: Laboratory Results - last 24 hr 10/29/23 05:43: WBC 6.3, RBC 4.35, Hgb 12.8, Hct 39.2, MCV 90.1, MCH 29.4, MCHC 32.7, RDW Std Deviation 45.4 H, RDW Coeff of Judy 13.7, Plt Count 152, MPV 8.8, Immature Gran % (Auto) 0.500, Neut % (Auto) 76.2 H, Lymph % (Auto) 13.7 L, Coal % (Auto) 7.2, Eos % (Auto) 1.8, Baso % (Auto) 0.6, Absolute Neuts (auto) 4.8, Absolute Lymphs (auto) 0.86, Nucleated RBC % 0, Sodium 137, Potassium 4.0, Chloride 107, Carbon Dioxide 25.0, Anion Gap 5, BUN 15, Creatinine 0.98, Estim Creat Clear Calc 58.47, Est GFR (MDRD) Af Amer 72, Est GFR (MDRD) Non-Af 60, BUN/Creatinine Ratio 15.3, Glucose 93, Calcium 8.3 L, Triglycerides 79, Cholesterol 158, LDL Cholesterol 69, VLDL Cholesterol 16, HDL Cholesterol 73 Radiography Diagnostic Testing: Radiology Impression Echocardiogram 10/28/23 09:03 Interpretation Summary The estimated ejection fraction is 65 %. No evidence for diastolic dysfunction. Trivial mitral valve insufficiency. Trivial aortic valve insufficiency. Ordering Physician: Serge Ingram Referring Physician: Joseph Dunaway Performed By: Shayy Elizabeth, YUKO, RVT Meaningful Use Info Meaningful Use Meaningful Use Diagnoses (Choose all that apply): Ischemic CVA CVA Therapy Assessed for PT,OT and/or ST?: Yes Ischemic Stroke Antithrombotic order at d/c?: Yes Dx of Atrial fib/flutter?: No Anticoagulant at discharge?: No Reason anticoagulant not ordered: Treatment not Indicated Statin Dosing Therapy Reference: STATIN DOSE THERAPY REFERENCE: * Patients > 75 years receive moderate or high dose statin therapy. * Patients 75 years or YOUNGER should receive HIGH intensity statin dose unless contraindicated. You will be required to document reason for non-treatment if statin daily dose does not meet guidelines. HIGH DOSE STATIN THERAPY DAILY Atorvastatin > than or = to 40 mg Rosuvastatin > than or = to 20 mg Amlodipine + Atorvastatin > than or = to 2.5/40 mg Ezetimibe + Simvastatin 10/80 mg Simvastatin 80mg Statins at discharge?: Yes If patient is 75 or younger, pt will be discharged on HIGH intensity statin.: Yes Primary Dx Acute Ischemic CVA?: Yes IV thrombolytic ordered during stay?: No Reason IV thrombolytic not ordered: Treatment not Indicated Discharge Plan Admission Admit Date/Time: 10/28/23 08:50 Primary Reason for Your Visit: Subacute infarct in the parafalcine left parietal lobe, right hemiparesis Attending Provider: Serge Ingram Primary Care Provider: Joseph Dunaway Consulting Providers: Александр Mckay; Reynaldo Daugherty; Velvet Mendoza; Cate Bloom; Magdalena Chamorro; Tarik Salomon; Deya Avila; Gordo Norman; Volodymyr Rod; Randy De Leon; Mandie Copeland; Oscar Chaudhary; Suzanne Guerrero; González Snyder; Yamilka Moreno; Lakhwinder Rehman; Chaya Mendoza; Cameron Wyatt; Madhavi Camilo; Jeovany Yeboah Instructions Additional Instructions / Restrictions: Patient will need a prescription for a 30-day Holter monitor upon discharge from the rehab department Discharge Orders/Prescriptions Prescriptions: New atorvastatin 80 mg Tablet 80 mg PO QHS Qty: 0 0RF aspirin 81 mg Tablet,Delayed Release (Dr/Ec) 81 mg PO DAILYCM Qty: 1 0RF levothyroxine 100 mcg Tablet 100 mcg PO MoTuWeThFrSa@0600 Qty: 0 0RF heparin (porcine) 5,000 unit/mL Solution 5,000 unit subcut Q12 Qty: 25 0RF levothyroxine 112 mcg Tablet 112 mcg PO Palomino@0600 Qty: 0 0RF acetaminophen 325 mg tablet 650 mg PO Q6H PRN (Reason: pain) Qty: 1 0RF Continued cholecalciferol (vitamin D3) 2,000 unit capsule 2,000 unit PO QDAY calcium carbonate 600 mg calcium (1,500 mg) tablet 600 mg PO BID Discontinued levothyroxine 112 mcg capsule 112 mcg PO .Thursday levothyroxine 100 mcg capsule 100 mcg PO DAILY Rx Instructions: EXcept for Thursday hydrocortisone [Anusol-HC] 2.5 % cream with perineal applicator 1 applic [place] DAILY PRN (Reason: hemorrhoids) Qty: 30 0RF amlodipine 5 mg tablet 5 mg PO QDAY Qty: 90 3RF Referrals / Follow Up: Joseph Dunaway MD [Primary Care Provider] - Disposition Disposition (needs filled in before D/C Order can be placed): Inpatient Rehab Unit/Facility Charges/Coding Visit Charges Inpatient E&M: 66080 Disch Hosp >30min
[2023-10-29 14:04] VITALS: BMI 35.4
[2023-10-29 14:19] LABS: Thyroid Stim Hormone (TSH) 1.11 uIU/mL (0.358-3.74)
--- NOTE | 2023-10-29 14:23 | PHA.DC.MR.R ---
Pharmacy [place] Med Reconciliation Pharmacy Service has performed discharge medication reconciliation for this patient upon transfer to inpatient rehab The patient's discharge medication list was reviewed for discrepancies and discrepancies were resolved. Medications at Discharge Home Medications cholecalciferol (vitamin D3) 50 mcg (2,000 unit) capsule 2,000 unit PO QDAY health maintenance 07/27/17 calcium carbonate 600 mg PO BID health maintenance 08/05/21 acetaminophen 325 mg tablet 650 mg (2 x 325 mg) PO Q6H PRN pain #1 TAB 10/29/23 aspirin 81 mg tablet,delayed release 81 mg PO DAILYCM #1 TAB 10/29/23 atorvastatin 80 mg tablet 80 mg PO QHS #0 tabs 10/29/23 heparin (porcine) 5,000 unit/mL injection solution 5,000 unit subcut Q12 #25 mL 10/29/23 levothyroxine 100 mcg tablet 100 mcg PO MoTuWeThFrSa@0600 #0 tabs 10/29/23 levothyroxine 112 mcg tablet 112 mcg PO Palomino@0600 #0 tabs 10/29/23
[2023-10-29 15:56] LABS: Hemoglobin A1c 5.2 % (3.8-5.6)
== END 2023-10-29 15:00 | DRG 65 ==
LOC: ED 09:00 → PCU 09:21
PROVIDERS: Admitting Provider Internal Medicine; Emergency Provider Emergency Medicine; PCP Family Medicine; Visit Provider Internal Medicine
DX: I63.9 Cerebral infarction, unspecified (principal); G81.91 Hemiplegia, unspecified affecting right dominant side; D32.0 Benign neoplasm of cerebral meninges; I10 Essential (primary) hypertension; E03.9 Hypothyroidism, unspecified; R47.01 Aphasia; R29.712 NIHSS score 12; Z79.899 Other long term (current) drug therapy
CPT/HCPCS: 36415; 51702; 70450; 70496; 70498; 70553; 71045; 80048; 80061; 81001; 82962; 83036; 84443; 84484; 85025; 85610; 85730; 92507; 92523; 92610; 93005; 93306; 94762; 97110; 97163; 97166; 97530; 97535; 97802; 99285; A9575; J7030; Q9967; A4216; J2405

== ENCOUNTER 2023-10-29 15:15 | Inpatient (IN) | payer MEDICARE, OTHER, SELFPAY ==
[2023-10-29 15:24] VITALS: BP 124/47; PULSE 72; RESP 16; TEMP 36.8; O2SAT 97; BMI 35.1
[2023-10-29 18:00] VITALS: BP 136/51; PULSE 59; RESP 16; TEMP 37; O2SAT 96
[2023-10-29 20:03] VITALS: O2SAT 96
[2023-10-29] MEDS: Atorvastatin Calcium 80 MG Tablet PO (21:00)
[2023-10-29] MEDS: Heparin Injection (Vial) 5,000 UNIT/ML VIAL 5000 UNIT SC (21:00)
[2023-10-29] MEDS: Calcium Carbonate 500 MG Tablet PO (21:00)
[2023-10-29 21:32] VITALS: BMI 35.1
[2023-10-29 22:00] VITALS: O2SAT 95
[2023-10-30] MEDS: 0.9% Saline Lock 10 ML Syringe IV ×2 (05:00→09:42)
[2023-10-30] MEDS: Levothyroxine 100 MCG Tablet PO (05:41)
[2023-10-30 05:43] LABS: Bacteria 0 SEEN /hpf (None Seen); Mucous, Urine 0 SEEN /hpf (<or=2+)
[2023-10-30 05:46] LABS: Color, Urine Yellow (Yellow); Glucose, Dipstick Normal (Normal); Ketone-Dipstick 50 mg/dl (Negative); Leukocyte Esterase-Dipstick Negative /ul (Negative); Nitrite-Dipstick Negative (Negative); Occult Blood-Urine 150 /ul (Negative); Protein-Dipstick Negative (Negative); Urine Bilirubin Dipstick Negative (Negative); Urine Clarity Clear (Clear); Urine Urobilinogen Normal (Normal)
[2023-10-30 06:00] VITALS: BP 146/56; PULSE 72; RESP 16; TEMP 36.8; O2SAT 98
[2023-10-30 06:26] LABS: Red Blood Cells-Urine 10-25 SEEN /hpf (0-5); Squamous Epithelial Cells - UA 5-10 SEEN /hpf (5-10); White Blood Cells 0-5 SEEN /hpf (0-5)
[2023-10-30 06:49] LABS: Hematocrit 39.7 % (37-47); Mean Corp Hgb Conc 32.7 g/dL (32-36); Mean Corpuscular Hgb 29.5 pg (27.0-32.0); Mean Corpuscular Volume 90.2 fL (81-99); Mean Platelet Vol. 8.9 fl (6.2-12.0); Platelet Count 158 K/mm3 (150-450); RBC Distribution Width CV 13.8 % (11.6-14.6); RBC Distribution Width SD 46.2 fl (35.1-43.9); White Blood Count 4.5 K/mm3 (4.4-11.0)
[2023-10-30 07:21] LABS: ALB/GLOB Ratio 0.9 RATIO (0.9-2.4); AST(SGOT) 24 U/L (15-37); Alanine Aminotransfer ALT/SGPT 18 U/L (13-56); Alkaline Phosphatase 48 U/L (45-117); Anion Gap 9 (5-15); BUN 14 mg/dL (7-18); BUN/Creat Ratio 13.2 RATIO (10-20); Calcium,Total 8.6 mg/dL (8.5-10.1); Chloride 106 mmol/L (98-107); Creatinine, Serum 1.06 mg/dL (0.55-1.02); EST Glomerular Filtration Rate 54 mL/min (>60); Est Glom Filt Rate - Afr Amer 66 mL/min (>60); Estimated Creatinine Clearance 53.87 ml/min; Globulin 3.3 g/dL (2.2-4.2); Glucose 91 mg/dL (74-106); Magnesium 2.3 mg/dL (1.6-2.6); Phosphorus 2.5 mg/dL (2.5-4.9); Potassium 3.9 mmol/L (3.5-5.1); Protein, Total 6.3 g/dL (6.4-8.2); Sodium Level 139 mmol/L (136-145)
[2023-10-30 07:46] VITALS: O2SAT 95
[2023-10-30] MEDS: Aspirin E.C. 81 MG Tablet PO (09:39)
[2023-10-30] MEDS: Cholecalciferol (VIT D3) 25 MCG TABLET (1,000 UNITS) 50 MCG PO (09:40)
[2023-10-30] MEDS: Calcium Carbonate 500 MG Tablet PO ×2 (09:40→21:12)
[2023-10-30] MEDS: Heparin Injection (Vial) 5,000 UNIT/ML VIAL 5000 UNIT SC (09:40)
[2023-10-30] MEDS: Nystatin Powder 15gm Bottle 1 APPLIC TOPICAL ×2 (09:50→21:13)
--- NOTE | 2023-10-30 12:05 | EX.PCM.HP.RE ---
HPI - General General Date of Admission: 10/29/23 Date of Service: 10/30/23 Chief Complaint: Post Stroke debility HPI Narrative CRISTY MCRAE, is a 73 YO F with a PMH as listed below who presented to the ED at [facility] on 10/28/23 with aphasia and R side weakness. Stat non contrast CT brain showed no cute intracranial abnormality. There was a 3.5 by 1.6 by 2.6 centimeter meningioma along the left frontal convexity. Stat non contrast CT brain showed no cute intracranial abnormality. There was a 3.5 by 1.6 by 2.6 centimeter meningioma along the left frontal convexity. CTA of the head and neck showed no large vessel exclusion or significant intracranial vascular abnormality. MRI of the brain showed involutional changes and a subacute infarct in the peripheral scene left parietal lobe. Lab showed an elevated bee when it 19 with a creatinine of 1.27 and an estimated GFR of 44 which is consistent with stage 3 chronic renal failure. Tell a neurology was consulted and she was deemed not a candidate 4 TNK the last known well could not be determined. The neurologist recommended aspirin and admission to the hospital. She was admitted to the hospitalist service and started on ASA and a high intensity statin. TTE showed a normal EF with no evidence of diastolic dysfunction. She had trivial MR and TR and she is known to have non-rheumatic aortic valve insufficiency as well. She was injected with agitated saline to assess for right to left interatrial shunt but the results are not documented on the report. ?The pulmonary systolic pressure was estimated at 35 which is mildly increased.? Hemoglobin A1C was 5.2 and triglycerides were normal at 79. The LDL was 69 with an HDL of 73.? TSH was normal at 1.11.? While in the hospital she was seen by PT/OT/ST and acute inpatient rehab was recommended at discharge. She was transferred to the acute inpatient rehab unit at [facility] on 10/29/23 for three hours of therapy daily to restore function slash independence at or near her level prior to the stroke. Tells me that she snores and she does not feel rested in the morning when she awakens. She has HTN and is > 50 YOA. BMI is > 35. will measure the neck circumference but, STOP BANG score is at least 5. [facility] Medical History (Updated 10/30/23 @ 14:[address] Cheryle Lozano DO) Osteoarthritis Right knee pain Pulmonary hypertension Obesity (BMI 30-39.9) Ectopic atrial tachycardia Non-rheumatic tricuspid valve insufficiency Nonrheumatic mitral (valve) insufficiency Syncope and collapse Nonrheumatic aortic valve insufficiency Hypothyroidism Benign essential hypertension Home Medications ?Medication ?Instructions ?Recorded ?Last Taken ?Type cholecalciferol (vitamin D3) 50 2,000 unit PO QDAY health 07/27/17 10/27/23 09:00 History mcg (2,000 unit) capsule maintenance calcium carbonate 600 mg PO BID health maintenance 08/05/21 10/27/23 21:00 History acetaminophen 325 mg tablet 650 mg (2 x 325 mg) PO Q6H PRN 10/29/23 Unknown Rx pain #1 TAB aspirin 81 mg tablet,delayed 81 mg PO DAILYCM heart health #1 10/29/23 Unknown Rx release TAB atorvastatin 80 mg tablet 80 mg PO QHS cholesterol #0 tabs 10/29/23 Unknown Rx heparin (porcine) 5,000 unit/mL 5,000 unit subcut Q12 blood 10/29/23 Unknown Rx injection solution thinner #25 mL levothyroxine 100 mcg tablet 100 mcg PO MoTuWeThFrSa@0600 10/29/23 Unknown Rx thyroid #0 tabs levothyroxine 112 mcg tablet 112 mcg PO Palomino@0600 thyroid #0 tabs 10/29/23 Unknown Rx Allergy/AdvReac Type Severity Reaction Status Date / Time adhesive Allergy Hives Verified 10/28/23 07:03 egg AdvReac Upset Verified 10/28/23 07:03 Stomach Family History Father Hypertension Mother Lymphoma Brother Bipolar 1 disorder Pneumonia Brother Hypertension Surgical History History of laparoscopy Social History (Updated 10/30/23 @ 13:[address] Cheryle Lozano DO) household members: significant other housing: house number of children: 2 Smoking Status: Never smoker alcohol intake: current alcohol intake frequency: a few times a month substance use type: does not use caffeine: No what type of physical activity do you participate in: bicycling frequency: 5-6 times per week duration: 45-60 minutes/day seatbelt use: always do you feel safe at home: Yes ROS Review of Systems ROS Unobtainable: other Details: Some difficulty with slow thought processing. Mixing up right and left. Answers are brief and has trouble with multiple step commands. Yes and no answers are appropriate. Constitutional Constitutional: Reports weakness and other Details: insomnia ; Denies anorexia, change in weight, chills, fatigue, fever(s) or night sweats Eyes Eyes: Denies blurry vision, change in vision, eye pain or loss of vision ENT HEENT: Denies abnormal hearing, dysphagia, headache(s), hearing loss, nasal congestion or sore throat Cardiovascular Cardiovascular: Denies chest pain, dyspnea on exertion, edema, lightheadedness, orthopnea, palpitations, paroxysmal nocturnal dyspnea or syncope Respiratory/Chest Respiratory/Chest: Denies cough, dyspnea, shortness of breath at rest, shortness of breath with exertion or wheezing Gastrointestinal Gastrointestinal: Reports constipation; Denies abdominal pain, diarrhea, dyspepsia, hematemesis, hematochezia, nausea or vomiting Genitourinary Genitourinary: Denies dysuria, hematuria, nocturia, urinary frequency, urinary hesitancy, urinary incontinence or urinary urgency Musculoskeletal Musculoskeletal: Reports joint pain and other Details: R knee.....tells me that she has osteoarthritis. Does not take any medication for this as OP ; Denies back pain, joint swelling or neck pain Neurologic Neurologic: Reports abnormal speech; Denies confusion, disequilibrium, dizziness, focal weakness, headache(s), paresthesias, seizures, tingling or tremor(s) Psychiatric Psychiatric: Denies anxiety, depression, homicidal ideation or suicidal ideation Endocrine Endocrinology: Denies change in body appearance, polydipsia or polyuria Hematologic/Lymphatic Hematologic/Lymphatic: Denies easy bleeding, easy bruising or lymphadenopathy Allergic/Immunologic Allergic/Immunologic: Denies rhinitis, eczemia or asthma Vital Signs Vital Signs Vital Signs: 10/29/23 15:24 10/29/23 18:00 10/29/23 20:03 Temperature 98.3 F 98.6 F Temperature Source Temporal Temporal Pulse Rate 72 59 L Pulse Strength Respiratory Rate 16 16 Respiratory Effort Respiratory Depth Respiratory Pattern Blood Pressure 124/47 H 136/51 H Blood Pressure Mean 72 79 Blood Pressure Source Monitor Monitor Blood Pressure Position Semi-Fowlers Semi-Fowlers Blood Pressure Location Left Arm Left Arm Pulse Ox 97 96 96 Oxygen Delivery Method Room Air Room Air Room Air 10/29/23 22:00 10/30/23 06:00 10/30/23 07:46 Temperature 98.3 F Temperature Source Temporal Pulse Rate 72 Pulse Strength Respiratory Rate 16 Respiratory Effort Normal Non-Labored Respiratory Depth Normal Respiratory Pattern Normal Blood Pressure 146/56 H Blood Pressure Mean 86 Blood Pressure Source Monitor Blood Pressure Position Semi-Fowlers Blood Pressure Location Left Arm Pulse Ox 95 98 95 Oxygen Delivery Method Room Air Room Air Room Air 10/30/23 10:00 10/30/23 10:00 Temperature Temperature Source Pulse Rate Pulse Strength Normal (2+) Respiratory Rate Respiratory Effort Respiratory Depth Respiratory Pattern Blood Pressure Blood Pressure Mean Blood Pressure Source Blood Pressure Position Blood Pressure Location Pulse Ox Oxygen Delivery Method Room Air Weight Weight: 205 lb 7.533 oz Body Mass Index (BMI) 35.1 Indicators for Scoring Admitted with or Primary Diagnosis of CVA/Stroke: Yes Hx of CVA/Stroke: Yes Modified Daniel Score MRS Score at time of Evaluation: 4-Moderate/severe disability NIHSS NIHSS 1a. Level of Consciousness: Alert; keenly responsive 1b. LOC Questions: Answers BOTH questions correctly. 1c. LOC Commands: Performs both tasks correctly. 2. Best Gaze: Normal 3. Visual: No visual loss 4. Facial Palsy: Minor paralysis (flattened nasolabial fold, asymmetry on smiling) 5a. Left Arm: No drift; arm holds 90 (or 45) degrees for full 10 seconds 5b. Right Arm: No drift; arm holds 90 (or 45) degrees for full 10 seconds (she is R handed and the R ship's officer is weak compared to the left. ) 6a. Left Leg: No drift; leg holds 30-degree position for full 5 seconds 6b. Right Leg: No movement 7. Limb Ataxia: Present in 1 limb (dysmetria with the UE. No movement in the RLE so can not test. ) 8. Sensory: Normal; no sensory loss 9. Best Language: [id number]-[id number] aphasia; 10. Dysarthria: Zyaf-zz-lyurazxs dysarthria; 11. Extinction and Inattention: No abnormality Total: 8 Stroke Questions Stroke Team Activated: No Physical Exam Const alert Constitutional Narrative: A little tearful when we were talking about her deficits and depression. Makes good eye contact when we are talking. She is appropriate and paying close attention to what I am saying to her. Able to stay focused. General Appearance: cooperative HEENT head/scalp atraumatic Mouth: dry mucous membranes Eyes PERRL and EOMs intact bilaterally Neck supple, No nodes and no carotid bruits General: trachea midline Resp normal respiratory effort, normal air movement and clear to auscultation bilaterally Resp Narrative: No conversational dyspnea Effort and Inspection: Negative for tachypneic Cardio regular rate, S1 normal heart sound, S2 normal heart sound, no rub and no gallops Cardio Narrative: no ectopy. She has a soft systolic MM at the LLSB and the and LVOT. GI normal to inspection, nondistended, normoactive bowel sounds, soft to palpation and non-tender GI Narrative: No guarding with palpation Last BM 2 days ago. Extremity General Extremity: Negative for clubbing or cyanosis Skin no rashes or lesions noted, no wounds and no jaundice General Skin Exam: no breakdown Neuro Neuro Narrative: Mild R facial droop. No visual filed cuts. Can not shrug the R shoulder. Weak ship's officer with the R hand and she is R hand dominant. No drift with the RUE. No movement in the RLE. Mild dysmetria with the RUE. Intact sensation. Thought processing is slow. Yes and no answers are accurate. Mixes up the R and left sides. mild dysarthria. Speech is halting at times and she speaks in 1 word answers and occasional short phrase. Psych Psych Narrative: A little tearful when talking about the stroke and what to expect. Was hoping to get home soon but, has no movement in the RLE and she is aphasic with slow thought processing. I told her we hoped to have her 3-4 weeks on rehab to maximize her potential to get back to her baseline prior to the stroke. She is calm. Making good eye contact. Appearance: appropriate Attitude: No agitated Results Lab / Micro Data 10/30/23 06:29 10/30/23 06:29 Labs: Laboratory Results - last 24 hr 10/30/23 05:20: Urine Color Yellow, Urine Clarity Clear, Urine pH 6.0, Ur Specific [place] 1.020, Urine Protein Negative, Urine Glucose (UA) Normal, Urine Ketones 50 H, Urine Occult Blood 150 H, Urine Nitrite Negative, Urine Bilirubin Negative, Urine Urobilinogen Normal, Ur Leukocyte Esterase Negative, Urine RBC 10-25 SEEN, Urine WBC 0-5 SEEN, Ur Squamous Epith Cells 5-10 SEEN, Urine Bacteria 0 SEEN, Urine Mucus 0 SEEN 10/30/23 06:29: WBC 4.5, RBC 4.40, Hgb 13.0, Hct 39.7, MCV 90.2, MCH 29.5, MCHC 32.7, RDW Std Deviation 46.2 H, RDW Coeff of Judy 13.8, Plt Count 158, MPV 8.9, Sodium 139, Potassium 3.9, Chloride 106, Carbon Dioxide 24.0, Anion Gap 9, BUN 14, Creatinine 1.06 H, Estim Creat Clear Calc 53.87, Est GFR (MDRD) Af Amer 66, Est GFR (MDRD) Non-Af 54 L, BUN/Creatinine Ratio 13.2, Glucose 91, Calcium 8.6, Phosphorus 2.5, Magnesium 2.3, Total Bilirubin 0.80, AST 24, ALT 18, Alkaline Phosphatase 48, Total Protein 6.3 L, Albumin 3.0 L, Globulin 3.3, Albumin/Globulin Ratio 0.9 Assessment & Plan Assessment/Plan (1) Debility: (2) Acute stroke due to ischemia: (3) Urine retention: (4) Right hemiparesis: (5) Aphasia: (6) Right knee pain: QUALIFIERS: Chronicity: chronic Qualified Code(s): M25.561 - Pain in right knee; G89.29 - Other chronic pain (7) Hypothyroidism: QUALIFIERS: 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 PT for gait stability OT for ADL's ST for evaluation Analgesics as needed Bowel protocol Fall precautions Assess for Anxiety/Depression GI prophylaxis - Not necessary at this time......No N/V/epigastric pain/heartburn DVT prophylaxis with Lovenox 40 mg SC daily Follow up? with PCP, neurology, cardiology following DC from IP Rehab AM lab including CMP, CBC, Mag and Phos ? Overnight trending pulse ox Start Trazodone at HS for insomnia - pt agreeable to this We discussed the sx of depression and talked about how untreated depression can set you back in therapy due to poor motivation. She agrees to let me know if she is felling depressed. Start Arthritis compounded cream for OA R knee. Reinforced need to stay well hydrated. KUB ordered to r/o obstipation as contributing to urine retention. Have nursing measure the neck circumference. Will need a event monitor at DC from rehab to assess for PAF Decrease the Lipitor to 40 mg Q HS which is still considered high intensity. LDL was < 70 at admission on no lipid lowering drugs. Hopefully this will decrease risk for adverse side effects. DC heparin and start Lovenox 40 mg SC daily Charges/Coding Visit Charges Inpatient E&M: 70845 Init Hosp L3
--- NOTE | 2023-10-30 13:00 | RAD_ITS ---
EXAM: XR ABDOMEN, 1 VIEW CLINICAL INDICATION: CONSTIPATION TECHNIQUE: Frontal supine view of the abdomen/pelvis. COMPARISON: No relevant prior studies available. FINDINGS: LOWER THORAX: No acute pathology. GASTROINTESTINAL TRACT: Unremarkable. Non-obstructive. No bowel or stomach distention. ORGANS: Unremarkable as visualized. No organomegaly. No abnormal calcifications. BONES/JOINTS: No acute pathology. SOFT TISSUES: No acute pathology. RAD/Abdomen Single View IMPRESSION: Non-obstructive bowel gas pattern. Electronically Signed: Eyal Dow MD at 22:24 EDT ,
[2023-10-30] MEDS: Magnesium Hydroxide 30 ML UDC PO (14:28)
[2023-10-30] MEDS: Senna/Docusate Sodium 1 Tablet 2 TABLET PO ×2 (14:29→21:12)
[2023-10-30] MEDS: Arthritis Pain Compound 60 CLICK TUBE TOPICAL ×2 (14:30→21:13)
--- NOTE | 2023-10-30 14:37 | REHABEVAL_ITS ---
Admission Information Primary Diagnosis:: Post stroke debility Status Changes from Prescreening?: No changes Identified Actual Problem List:: Pain, ALteration in Cmfrt, Cognitve Impr/Memory Loss, Bladder Incontinence (urine retention), Bowel, Constipation, Alteration in Sleep, Mobility Impaired, Self Care Deficit, Ineffective Communication, Know.Dfct/Disease Process, BP, Hypertension, Fluid Change-Dehydration and Alteration-Leisure Activ. Potential Problem List:: DVT, Bleeding, Infection, UTI, Aspiration, Falls, Skin Integrity and Depression Risk of Complications DVT: LMWH and MARRY Hose Bleeding: Monitor Lab Values, Nursing to Teach Precautions for anti-coagulation therapy., Wound, if applicable, to be assessed every shift. and Stroke patients assessed for lethargy or change in status. Infection: Clinical Staff to Monitor for S/S of infection: and S/S of infection include fever, redness, warmth, etc. Urinary Tract Infection: Monitor for frequency, burning, discomfort, or incontinence. and Nursing will obtain urine sample for urinalysis and C&S when ordered. Aspiration: Clinical staff will monitor for coughing, drooling, congestion., Speech will evaluate swallowing and dsyphasia. and Nursing will monitor patient swallowing during meals. Falls: Patient will be evaluated for Fall Precautions and Patient will be placed on Fall Precautions as indicated per protocol. Skin Breakdown: Nursing will assess skin daily using assessment tool. and Nursing will place on Skin Breakdown Precautions as indicated. Pain: Clinical staff will assess patient's pain level per protocol., Medications will be given, if needed, and the pain level reassessed. and Other methods: Massage, distraction, decrease stimulus, etc. used PRN. Plan of Care Patient requires physician specializing in physical medicine and rehab oversight to provide close medical supervision of rehab issues including: Pain Management, Sleep Problems, Bowel and Bladder, Medical and co-morbidity Management, DVT prophylaxis, Rehabilitation Leadership and Coordination of treatment team Patient needs Physical Therapy: For a minimum of 1 hour and At least 5 out of 7 days Patient needs Physical Therapy to improve:: Mobility, Strengthening, Transfers, Stretching, ROM, Endurance, Stairs, Gait and Balance Patient needs Occupational Therapy: For a minimum of 1 hour and At least 5 out of 7 days Patient needs Occupational Therapy to improve ADL's incl.: Eating, Grooming, Bathing, Dressing, Toileting, Toilet transfers, Community Reintegration, Higher functioning activities, Household tasks, Adaptive Equipment, Splinting and Other activities as determined Patient requires speech therapy: For a minimum of 1 hour and At least 5 out of 7 days Patient requires speech therapy for: Swallowing, Cognition, Language Skills and Compensatory Strategies Patient requires 24/ Rehabilitation Nursing for: Pain Issues, Identifying and preventing risk factors, Monitoring and reporting current medical conditions, Assisting with ambulation, transfer, and all ADL's, Teaching patients about disease process and medications, Family teaching, Providing safe environment, Bowel and Bladder Issues, Skin integrity and Medication Management Patient needs Machine Scallop Cutter/ Case Management for: Discharge Planning, Arranging Home Equipment or Services and Family Interventions Patient needs Dietary and Nutrition Services for: Adequate Nutrition, Nutritional Supplements and Nutritional Education Goals Goals Patient will remain: free from falls Patient will perform eating at: MOD I level of assist. Patient will perform bed mobility at: MOD I level of assist. Patient will complete transfers from bed to chair at: MOD I level of assist. Patient will ambulate: - (300 feet with least restrictive device at supervision) Patient will complete upper body dressing at: Standby Assist. (Set up) Patient will complete lower body dressing at: - (Min assist) Patient will complete toilet transfer at: - (Min assist) Patient will complete toileting at: - (Min assist) Patient will perform bathing at: - (Standby assist for upper body bathing and min assist for lower body bathing with adaptive equipment as needed.) Patient will perform Tub/Shower transfer at: - (Standby assist for at least 1 to 2 weeks post discharge) Patient will complete grooming at: MOD I level of assist. Patient will achieve: - (1 curb step with LRD ) Patient will have pain level of: of 3 or less Patient's skin will: remain intact Patient will receive: adequate nutrition. Discharge Planning Pt Prognosis for Sig. Practical Improv. w/in Reasonable Time: Good Estimated Length of stay (days): 28 Anticipated D/C Destination: Home Was Preadmission Assessment Accurate?: Yes
--- NOTE | 2023-10-30 15:02 | CASEMGMT ---
Social Work SW phoned to complete initial assessment. Verified/updated contacts. verified pt's wish is to be full code. SW requested provide copies of advanced directives. SW educated to Medicare benefit and Team meetings. SW will continue to follow for DC planning. TREVOR AyalaW
[2023-10-30] MEDS: Bisacodyl 10 MG Suppository RC (16:16)
--- NOTE | 2023-10-30 16:23 | NURSING ---
Neck CM is 34. Dr. white.
[2023-10-30 17:32] VITALS: BP 152/72; PULSE 91; RESP 17; TEMP 37.4; O2SAT 95
[2023-10-30 20:51] VITALS: BMI 35.1
[2023-10-30] MEDS: Ensure Plus High Protein 120 ML LIQUID PO (21:13)
[2023-10-30] MEDS: Atorvastatin Calcium 40 MG Tablet PO (21:13)
[2023-10-30 22:00] VITALS: PULSE 72; RESP 15; O2SAT 94
[2023-10-30 22:38] VITALS: PULSE 76; O2SAT 96
[2023-10-31] MEDS: Enoxaparin 40 MG/0.4 ML Syringe SC (05:58)
[2023-10-31] MEDS: Levothyroxine 100 MCG Tablet PO (05:59)
[2023-10-31] MEDS: 0.9% Saline Lock 10 ML Syringe IV ×2 (05:59→21:28)
[2023-10-31 06:00] VITALS: BP 153/66; PULSE 95; RESP 16; TEMP 36.6; O2SAT 96
[2023-10-31 07:45] VITALS: O2SAT 94
[2023-10-31] MEDS: Cholecalciferol (VIT D3) 25 MCG TABLET (1,000 UNITS) 50 MCG PO (09:13)
[2023-10-31] MEDS: Calcium Carbonate 500 MG Tablet PO ×2 (09:14→21:21)
[2023-10-31] MEDS: Aspirin E.C. 81 MG Tablet PO (09:15)
[2023-10-31] MEDS: Ensure Plus High Protein 120 ML LIQUID PO (09:15)
[2023-10-31] MEDS: Senna/Docusate Sodium 1 Tablet 2 TABLET PO ×2 (09:15→21:21)
[2023-10-31] MEDS: Arthritis Pain Compound 60 CLICK TUBE TOPICAL ×2 (09:18→21:20)
[2023-10-31] MEDS: Nystatin Powder 15gm Bottle 1 APPLIC TOPICAL ×2 (09:22→21:23)
[2023-10-31 10:00] VITALS: RESP 16; O2SAT 94
--- NOTE | 2023-10-31 11:21 | NURSING ---
D/t persistent urinary retention noted with PVR's, patient requiring insertion of Blanco catheter, RN notified and 16 FR Blanco inserted w/ 10 ml balloon instilled. Patent, draining urine properly bag is free of kinks and below the bladder. Patient tolerated insertion well, return to normal resting position and denies any further needs.
[2023-10-31 15:59] VITALS: BMI 35.1
[2023-10-31] MEDS: Menthol/Lanolin/Calamine/Znox 113 GM Tube 1 APPLIC TOPICAL ×2 (16:05→21:23)
[2023-10-31 18:00] VITALS: BP 125/66; PULSE 65; RESP 14; TEMP 36.7; O2SAT 96
[2023-10-31] MEDS: Atorvastatin Calcium 40 MG Tablet PO (21:21)
[2023-11-01 01:27] VITALS: BMI 35.1
[2023-11-01 06:00] VITALS: BP 169/77; PULSE 60; RESP 18; TEMP 37; O2SAT 95
[2023-11-01] MEDS: Enoxaparin 40 MG/0.4 ML Syringe SC (06:29)
[2023-11-01] MEDS: Levothyroxine 112 MCG Tablet PO (06:30)
[2023-11-01 07:42] VITALS: O2SAT 96
[2023-11-01] MEDS: Calcium Carbonate 500 MG Tablet PO ×2 (08:13→20:18)
[2023-11-01] MEDS: Aspirin E.C. 81 MG Tablet PO (08:13)
[2023-11-01] MEDS: Senna/Docusate Sodium 1 Tablet 2 TABLET PO ×2 (08:14→20:18)
[2023-11-01] MEDS: Cholecalciferol (VIT D3) 25 MCG TABLET (1,000 UNITS) 50 MCG PO (08:14)
[2023-11-01] MEDS: Arthritis Pain Compound 60 CLICK TUBE TOPICAL ×2 (08:14→20:20)
[2023-11-01] MEDS: Nystatin Powder 15gm Bottle 1 APPLIC TOPICAL ×2 (08:28→20:19)
[2023-11-01] MEDS: Menthol/Lanolin/Calamine/Znox 113 GM Tube 1 APPLIC TOPICAL ×2 (08:28→20:20)
[2023-11-01 14:33] VITALS: BMI 35.1
[2023-11-01 18:00] VITALS: BP 130/51; PULSE 64; RESP 16; TEMP 36.6; O2SAT 100
[2023-11-01] MEDS: Ensure Plus High Protein 120 ML LIQUID PO (20:19)
[2023-11-01] MEDS: Atorvastatin Calcium 40 MG Tablet PO (20:19)
[2023-11-01 23:31] VITALS: BMI 35.1
[2023-11-02] VITALS (8 sets, daily range): BP systolic 111–138; BP diastolic 54–72; PULSE 57–72; RESP 16–18; TEMP 36.8–37.1; O2SAT 93–99; BMI 35.1
[2023-11-02] MEDS: Levothyroxine 100 MCG Tablet PO (05:48)
[2023-11-02] MEDS: 0.9% Saline Lock 10 ML Syringe IV (05:52)
[2023-11-02] MEDS: Aspirin E.C. 81 MG Tablet PO (08:39)
[2023-11-02] MEDS: Cholecalciferol (VIT D3) 25 MCG TABLET (1,000 UNITS) 50 MCG PO (08:39)
[2023-11-02] MEDS: Senna/Docusate Sodium 1 Tablet 2 TABLET PO ×2 (08:39→20:38)
[2023-11-02] MEDS: Arthritis Pain Compound 60 CLICK TUBE TOPICAL ×2 (08:39→20:30)
[2023-11-02] MEDS: Ensure Plus High Protein 120 ML LIQUID PO ×2 (08:40→20:44)
[2023-11-02] MEDS: Nystatin Powder 15gm Bottle 1 APPLIC TOPICAL ×2 (08:43→20:38)
[2023-11-02] MEDS: Menthol/Lanolin/Calamine/Znox 113 GM Tube 1 APPLIC TOPICAL ×2 (08:43→20:37)
[2023-11-02] MEDS: Calcium Carbonate 500 MG Tablet PO ×2 (09:45→20:38)
--- NOTE | 2023-11-02 11:34 | PN_ITS ---
Subjective Subjective Evelina was seem on TEAM rounds. Her Stephen was present in the room for rounds. Afebrile VSS -blood pressure since Thursday morning has ranged from 125/65 to 169/77. She is not on an antihypertensive. Diastolics are always within goal but the systolics are sometimes elevated. Maintaining appropriate oxygen saturation on RA Oral intake - FOOD fair to good FLUIDS good Discussed with nursing -Blanco was inserted over the weekend for urine retention. She had multiple bowel movements after laxatives so I doubt obstipation is still contributing to urine retention. Retention is most likely related to recent stroke. She has hematuria. Reviewed the THERAPY notes Medication list reviewed. UA today is positive for proteinuria, nitrites and ketones. There are greater than 100 WBCs per high-power field and 50-100 white blood cells per high-power field. She has 25-50 renal epithelial cells and there is 4+ bacteria. This was a specimen from the Blanco catheter tubing. Evelina denies cephalgia, lightheadedness, palpitations, chest pain, shortness of breath, cough, nausea/vomiting/abdominal pain, suprapubic pain, calf pain. Objective Data Objective Data Vital Signs: Vital Signs Temp Pulse Resp BP Pulse Ox O2 Del Method FiO2 98.8 F 62 18 126/65 H 96 Room Air 21 11/02/23 05:49 11/02/23 05:49 11/02/23 05:49 11/02/23 05:49 11/02/23 05:49 11/02/23 05:49 10/30/23 22:38 Oxygen Delivery Method Room Air Weight: 205 lb 7.533 oz Body Mass Index (BMI) 35.1 Intake & Output: Intake and Output for Last 24 Hours 10/31/23 11/01/23 11/02/23 23:59 23:59 23:59 Intake Total 1780 / 1880 2135 / 2135 990 / 990 Output Total 700 / 1000 2250 / 2250 850 / 850 Balance 1080 / 880 -115 / -115 140 / 140 Lab / Micro Data 10/30/23 06:29 10/30/23 06:29 Micro: Microbiology 10/30/23 05:20 Urine, Catheterized Urine Culture - Final Culture exhibits no growth. Physical Exam Const Constitutional Narrative: More alert today and thought processes are quicker. There is better projection of the voice and it is not so breathy. General Appearance: cooperative HEENT Mouth: dry mucous membranes Resp normal respiratory effort, normal air movement and clear to auscultation bilaterally Resp Narrative: No conversational dyspnea Effort and Inspection: Negative for tachypneic Cardio regular rate, regular rhythm, no rub and no gallops Cardio Narrative: No ectopy GI normal to inspection, nondistended, normoactive bowel sounds, soft to palpation and non-tender GI Narrative: No guarding with palpation Extremity no calf tenderness General Extremity: edema bilateral (Mild ankle edema, mostly controlled by MARRY hose. 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 Continue therapy 2. Start Lopressor 12.5 mg p.o. twice daily 3. Overnight trending pulse ox tonight 4. Check blood pressure every 4 hours while awake for the next 72 hours 5. Needs a event monitor at DC 6. Start Bactrim DS for suspected UTI. 7. Urine culture. 8. Stat CPK......the urine has a brownish discoloration and is + for nitrites. She is on a high intensity statin which can cause increased CPK. 9. BMP, liver panel, CPK in the AM. 10. encouraged increased fluid intake. Hold the Lipitor tonight. 11. Start NS - 500 cc bolus over 1 hour and then run at 75 cc/hr Charges/Coding Visit Charges Inpatient E&M: 45638 Subs Hosp L2
--- NOTE | 2023-11-02 13:31 | CASEMGMT ---
Addendum entered by Camille Pond 11/02/23 13:47: SW educated and provided information for Stroke Support Group. agreeable to receive monthly newsletter. Original Note: Social Work IDT met with patient and for Team meeting. Discussed patient's progress in PT/OT/ST/SN. Educated to Medicare approval of 22 days with DC 11/19. will determine if he can care for pt at home or if pt will need to DC to a SNF. Offered therapy family training closer to DC. agreeable. SW to assist with DC planning. TREVOR AyalaW
[2023-11-02] MEDS: Metoprolol Tartrate 25 MG Tablet 12.5 MG PO ×2 (14:49→20:49)
[2023-11-02 16:23] LABS: Mucous, Urine 0 SEEN /hpf (<or=2+)
[2023-11-02 16:29] LABS: Color, Urine Red (Yellow); Glucose, Dipstick Normal (Normal); Ketone-Dipstick 5 mg/dl (Negative); Leukocyte Esterase-Dipstick 500 /ul (Negative); Nitrite-Dipstick Positive (Negative); Occult Blood-Urine 250 /ul (Negative); Protein-Dipstick 500 mg/dl (Negative); Urine Bilirubin Dipstick Negative (Negative); Urine Clarity Sl. Cloudy (Clear); Urine Urobilinogen Normal (Normal); Urine pH 6.5 (5.0 - 8.0)
[2023-11-02 18:16] LABS: Bacteria 4+ /hpf (None Seen); Red Blood Cells-Urine > 100 SEEN /hpf (0-5); Renal Epithelial Cells 25-50 SEEN /hpf (0-5); Squamous Epithelial Cells - UA 5-10 SEEN /hpf (5-10); Transitional Epithelial - Ur 10-25 SEEN /hpf (0-5); White Blood Cells 50-100 SEEN /hpf (0-5)
[2023-11-02] MEDS: 0.9% Normal Saline (1000mL) 1,000 ML 999 ML IV (18:58)
[2023-11-02 19:28] LABS: CPK Total, Creatine Kinase 99 U/L (26-192)
--- NOTE | 2023-11-02 20:08 | NURSING ---
Dr Escobedo called, per request, with results from TCK. TCK was 99. No n/o at this time.
[2023-11-02] MEDS: Smz/Tmp Ds Tablet 1 TABLET PO (20:42)
[2023-11-03] VITALS (7 sets, daily range): BP systolic 125–150; BP diastolic 44–58; PULSE 54–75; RESP 16–18; TEMP 36.6–36.7; O2SAT 97–99; BMI 35.1
[2023-11-03] MEDS: 0.9% Normal Saline (1000mL) 1,000 ML 75 ML IV ×2 (01:34→16:51)
[2023-11-03 05:15] LABS: Absolute Neutrophil Count 4.8 X10^3/uL (2.0-7.7); Basophil# 0.04 X10^3/uL; Basophil% 0.6 % (0-1); Eosinophils% 4.6 % (0-5); Hematocrit 37.9 % (37-47); Hemoglobin 12.5 g/dL (12.0-15.0); Lymphocyte % 13.8 % (19-41); Mean Corpuscular Hgb 29.9 pg (27.0-32.0); Mean Corpuscular Volume 90.7 fL (81-99); Mean Platelet Vol. 9.4 fl (6.2-12.0); Monocyte# 0.48 X10^3/uL; Monocyte% 7.4 % (0-10); NRBC Flagged by Analyzer 0 % (0-5); Neutrophil # 4.76 X10^3/uL (2.7-7.7); Neutrophil % 73.1 % (47-70); Platelet Count 164 K/mm3 (150-450); RBC Distribution Width CV 13.7 % (11.6-14.6); RBC Distribution Width SD 45.6 fl (35.1-43.9); Red Blood Count 4.18 M/mm3 (4.2-5.4); White Blood Count 6.5 K/mm3 (4.4-11.0)
[2023-11-03 05:36] LABS: Anion Gap 5 (5-15); BUN 17 mg/dL (7-18); BUN/Creat Ratio 15.2 RATIO (10-20); CPK Total, Creatine Kinase 97 U/L (26-192); Calcium,Total 8.7 mg/dL (8.5-10.1); Chloride 109 mmol/L (98-107); Creatinine, Serum 1.12 mg/dL (0.55-1.02); EST Glomerular Filtration Rate 51 mL/min (>60); Est Glom Filt Rate - Afr Amer 62 mL/min (>60); Estimated Creatinine Clearance 50.98 ml/min; Glucose 94 mg/dL (74-106); Potassium 4.3 mmol/L (3.5-5.1); Sodium Level 140 mmol/L (136-145)
[2023-11-03] MEDS: Levothyroxine 100 MCG Tablet PO (06:39)
[2023-11-03] MEDS: Aspirin E.C. 81 MG Tablet PO (07:56)
[2023-11-03] MEDS: Metoprolol Tartrate 25 MG Tablet 12.5 MG PO (10:29)
[2023-11-03] MEDS: Calcium Carbonate 500 MG Tablet PO ×2 (10:29→20:24)
[2023-11-03] MEDS: Smz/Tmp Ds Tablet 1 TABLET PO ×2 (10:29→20:25)
[2023-11-03] MEDS: Senna/Docusate Sodium 1 Tablet 2 TABLET PO (10:29)
[2023-11-03] MEDS: Menthol/Lanolin/Calamine/Znox 113 GM Tube 1 APPLIC TOPICAL ×2 (10:30→20:25)
[2023-11-03] MEDS: Arthritis Pain Compound 60 CLICK TUBE TOPICAL ×2 (10:30→20:25)
[2023-11-03] MEDS: Cholecalciferol (VIT D3) 25 MCG TABLET (1,000 UNITS) 50 MCG PO (10:36)
[2023-11-03] MEDS: Ensure Plus High Protein 120 ML LIQUID PO (10:37)
--- NOTE | 2023-11-03 12:49 | PCM.PROGNOTE ---
Subjective Subjective Bactrim day #2 Afebrile VSS -heart rate is ranging from 55-60. Blood pressure is for the most part controlled with an occasional mild elevation in systolic. Diastolics are always within normal limits. Maintaining appropriate oxygen saturation on RA Oral intake - FOOD good FLUIDS good Discussed with nursing - no problems that need addressed Reviewed the THERAPY notes Medication list reviewed. The overnight trending pulse ox was reviewed. Pulse ox is 89 or less 2.31% of the time she was monitored. There was 1 desaturation event lasting 1 minute and 18 seconds with a pulse ox of 80%. Heart rate ranges from 50 to 5967.25% of the time and is 49 or less 2.76% of the time. There is no tachycardia. All lab from this morning was personally reviewed. White blood cell count is 6.5 with 73% neutrophils. Hemoglobin is normal. Platelet count is normal. Sodium is 140 and the potassium is 4.3. The BUN is 17 with a creatinine of 1.12 which is within her baseline. GFR is 51 which is consistent with stage IIIa chronic renal failure. Total CK is normal. Preliminary on the urine culture is greater than 100,000 colonies of presumptive E. coli. Denies lightheadedness, cephalgia, chest pain, shortness of breath, cough, palpitations, nausea/vomiting/abdominal pain, suprapubic pain and calf pain. Objective Data Objective Data Vital Signs: Vital Signs Temp Pulse Resp BP Pulse Ox O2 Del Method FiO2 98.1 F 60 16 150/58 H 99 Room Air 11/03/23 10:11/03/23 10:29 11/03/23 10:11/03/23 10:11/03/23 10:11/03/23 10:11/02/23 21:30 Oxygen Delivery Method Room Air Weight: 205 lb 7.533 oz Body Mass Index (BMI) 35.1 Intake & Output: Intake and Output for Last 24 Hours 11/01/23 11/02/23 11/03/23 23:59 23:59 23:59 Intake Total 2135 / 2135 2759.45 / 2759.45 683.75 / 683.75 Output Total 2250 / 2250 2260 / 2260 1075 / 1075 Balance -115 / -115 499.45 / 499.45 -391.25 / -391.25 Lab / Micro Data 11/03/23 04:50 11/03/23 04:50 Labs: Laboratory Results - last 24 hr 11/02/23 16:15: Urine Color Red, Urine Clarity Sl. Cloudy, Urine pH 6.5, Ur Specific [place] 1.010, Urine Protein 500 H, Urine Glucose (UA) Normal, Urine Ketones 5 H, Urine Occult Blood 250 H, Urine Nitrite Positive H, Urine Bilirubin Negative, Urine Urobilinogen Normal, Ur Leukocyte Esterase 500 H, Urine RBC > 100 SEEN, Urine WBC 50-100 SEEN, Ur Squamous Epith Cells 5-10 SEEN, Ur Transition Epith Cell 10-25 SEEN, Ur Renal Epithelial Cell 25-50 SEEN, Urine Bacteria 4+, Urine Mucus 0 SEEN 11/02/23 19:03: Total Creatine Kinase 99 11/03/23 04:50: WBC 6.5, RBC 4.18 L, Hgb 12.5, Hct 37.9, MCV 90.7, MCH 29.9, MCHC 33.0, RDW Std Deviation 45.6 H, RDW Coeff of Judy 13.7, Plt Count 164, MPV 9.4, Immature Gran % (Auto) 0.500, Neut % (Auto) 73.1 H, Lymph % (Auto) 13.8 L, [place] % (Auto) 7.4, Eos % (Auto) 4.6, Baso % (Auto) 0.6, Absolute Neuts (auto) 4.8, Absolute Lymphs (auto) 0.90, Nucleated RBC % 0, Sodium 140, Potassium 4.3, Chloride 109 H, Carbon Dioxide 26.0, Anion Gap 5, BUN 17, Creatinine 1.12 H, Estim Creat Clear Calc 50.98, Est GFR (MDRD) Af Amer 62, Est GFR (MDRD) Non-Af 51 L, BUN/Creatinine Ratio 15.2, Glucose 94, Calcium 8.7, Total Creatine Kinase 97 Micro: Microbiology 11/02/23 16:15 Urine Catheter - Blanco Urine Culture - Preliminary Presumptive E. coli 10/30/23 05:20 Urine, Catheterized Urine Culture - Final Culture exhibits no growth. Physical Exam HEENT Mouth: dry mucous membranes Resp normal respiratory effort, normal air movement and clear to auscultation bilaterally Resp Narrative: No conversational dyspnea Effort and Inspection: Negative for tachypneic Cardio regular rate, regular rhythm, no rub and no gallops Cardio Narrative: No ectopy GI normal to inspection, nondistended, normoactive bowel sounds, soft to palpation and non-tender GI Narrative: No guarding with palpation Extremity no calf tenderness General Extremity: edema bilateral (Mild ankle edema, mostly controlled by MARRY hose. 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 PLAN: Plan 1. Continue therapy 2. Discontinue Lopressor due to bradycardia 3. Start amlodipine 2.5 mg p.o. daily in a.m. 4. Continue Bactrim DS 1 p.o. twice daily and await the final culture results/sensitivities. 5. Voiding trial in a few days. 6. Restart Lovenox in the a.m., continue SCDs and MARRY hose for now. Charges/Coding Visit Charges Inpatient E&M: 63026 Subs Hosp L1
[2023-11-03] MEDS: Nystatin Powder 15gm Bottle 1 APPLIC TOPICAL ×2 (14:22→20:24)
--- NOTE | 2023-11-03 16:11 | NURSING ---
Sitting in recliner, denies pain and denies any needs.
[2023-11-04 05:07] VITALS: BP 142/55; PULSE 54; RESP 16; TEMP 36.8; O2SAT 93
[2023-11-04] MEDS: 0.9% Normal Saline (1000mL) 1,000 ML 75 ML IV (05:32)
[2023-11-04] MEDS: Levothyroxine 100 MCG Tablet PO (05:32)
[2023-11-04 05:41] VITALS: BMI 34.9
[2023-11-04] MEDS: Aspirin E.C. 81 MG Tablet PO (07:42)
[2023-11-04 10:00] VITALS: BP 128/48; PULSE 51; RESP 17; TEMP 37.1; O2SAT 98
[2023-11-04] MEDS: Arthritis Pain Compound 60 CLICK TUBE TOPICAL ×2 (10:01→21:09)
[2023-11-04] MEDS: Smz/Tmp Ds Tablet 1 TABLET PO (10:01)
[2023-11-04] MEDS: Calcium Carbonate 500 MG Tablet PO ×2 (10:02→21:10)
[2023-11-04] MEDS: amLODIPine 2.5 MG Tablet PO (10:02)
[2023-11-04] MEDS: Cholecalciferol (VIT D3) 25 MCG TABLET (1,000 UNITS) 50 MCG PO (10:02)
[2023-11-04] MEDS: Senna/Docusate Sodium 1 Tablet 2 TABLET PO (10:02)
[2023-11-04] MEDS: Nystatin Powder 15gm Bottle 1 APPLIC TOPICAL ×2 (10:08→21:13)
[2023-11-04] MEDS: Menthol/Lanolin/Calamine/Znox 113 GM Tube 1 APPLIC TOPICAL ×2 (10:08→21:25)
[2023-11-04] MEDS: Ensure Plus High Protein 120 ML LIQUID PO (10:09)
[2023-11-04 12:44] VITALS: BMI 34.9
[2023-11-04 14:00] VITALS: BP 132/52; PULSE 55; RESP 17; TEMP 36.3; O2SAT 96
[2023-11-04 18:00] VITALS: BP 107/49; PULSE 69; RESP 16; TEMP 36.7; O2SAT 94
[2023-11-04 20:36] VITALS: BMI 34.9
[2023-11-04 21:07] VITALS: BP 112/42; PULSE 57
[2023-11-04] MEDS: Cefadroxil 500 MG CAPSULE PO (21:11)
[2023-11-04 21:28] VITALS: PULSE 57; RESP 16; O2SAT 95
[2023-11-05 06:00] VITALS: BP 120/51; PULSE 57; RESP 18; TEMP 36.5; O2SAT 98
[2023-11-05] MEDS: Levothyroxine 100 MCG Tablet PO (06:01)
[2023-11-05 10:00] VITALS: BP 108/59; PULSE 65
[2023-11-05] MEDS: amLODIPine 2.5 MG Tablet PO (10:06)
[2023-11-05] MEDS: Aspirin E.C. 81 MG Tablet PO (10:06)
[2023-11-05] MEDS: Cholecalciferol (VIT D3) 25 MCG TABLET (1,000 UNITS) 50 MCG PO (10:06)
[2023-11-05] MEDS: Cefadroxil 500 MG CAPSULE PO ×2 (10:06→21:16)
[2023-11-05] MEDS: Calcium Carbonate 500 MG Tablet PO ×2 (10:07→21:16)
[2023-11-05] MEDS: Menthol/Lanolin/Calamine/Znox 113 GM Tube 1 APPLIC TOPICAL ×2 (10:09→21:18)
[2023-11-05] MEDS: Nystatin Powder 15gm Bottle 1 APPLIC TOPICAL ×2 (10:09→21:18)
[2023-11-05] MEDS: Arthritis Pain Compound 60 CLICK TUBE TOPICAL ×2 (10:10→21:15)
--- NOTE | 2023-11-05 10:26 | PN_ITS ---
Subjective Subjective Day #3/7 of antibiotics for E. coli cystitis related to urine retention. E. Coli is carlisle-sensitive Afebrile VSS -blood pressure is well-controlled on amlodipine 2.5 mg daily. Beta-shay was stopped due to significant bradycardia while sleeping. Heart rate over the past 48 hours has ranged from 51-69 Maintaining appropriate oxygen saturation on RA Oral intake - FOOD good FLUIDS good Discussed with nursing - no problems that need addressed Reviewed the THERAPY notes Medication list reviewed. Urine in the Blanco bag is clear with no obvious hematuria. Natalya denies cephalgia, lightheadedness, chest pain, shortness of breath, cough, nausea/vomiting/abdominal pain, suprapubic pain, flank pain and calf pain. Objective Data Objective Data Vital Signs: Vital Signs Temp Pulse Resp BP Pulse Ox O2 Del Method O2 Flow Rate 97.7 F L 65 18 108/59 L 98 Nasal Cannula 2 11/05/23 06:00 11/05/23 10:00 11/05/23 06:00 11/05/23 10:00 11/05/23 06:00 11/05/23 06:00 11/05/23 06:00 FiO2 21 11/02/23 21:30 Oxygen Flow Rate (L/min) 2 Oxygen Delivery Method Nasal Cannula Weight: 204 lb 9.423 oz Body Mass Index (BMI) 34.9 Intake & Output: Intake and Output for Last 24 Hours 11/03/23 11/04/23 11/05/23 23:59 23:59 23:59 Intake Total 3533.75 / 3533.75 4191.25 / 4191.25 940 / 940 Output Total 2575 / 2575 4000 / 4000 475 / 475 Balance 958.75 / 958.75 191.25 / 191.25 465 / 465 Lab / Micro Data 11/03/23 04:50 11/03/23 04:50 Micro: Microbiology 11/02/23 16:15 Urine Catheter - Blanco Urine Culture - Final Presumptive E. coli 10/30/23 05:20 Urine, Catheterized Urine Culture - Final Culture exhibits no growth. Physical Exam Const alert, oriented x3 and no apparent distress Constitutional Narrative: Much more verbal. Speech is fluent. though process has improved and she is able to answer my questions without delay. She is making good eye contact when speaking with me. General Appearance: cooperative Resp normal respiratory effort, normal air movement and clear to auscultation bilaterally Resp Narrative: No conversational dyspnea Effort and Inspection: Negative for tachypneic Cardio regular rate, regular rhythm, no rub and no gallops Cardio Narrative: No ectopy GI normal to inspection, nondistended, normoactive bowel sounds, soft to palpation and non-tender GI Narrative: No guarding with palpation Extremity no calf tenderness General Extremity: edema bilateral (Mild ankle edema, mostly controlled by MARRY hose. 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 Continue therapy 2. Finish 7 days of antibiotics for E. coli cystitis related to urine retention. 3. Plan voiding trial tomorrow. Charges/Coding Visit Charges Inpatient E&M: 74001 [facility] Hosp L1
[2023-11-05 12:24] VITALS: BMI 34.9
[2023-11-05 14:00] VITALS: BP 120/60; PULSE 62
[2023-11-05 18:00] VITALS: BP 139/62; PULSE 72; RESP 17; TEMP 36.1; O2SAT 96
[2023-11-05] MEDS: Senna/Docusate Sodium 1 Tablet 2 TABLET PO (21:16)
[2023-11-05] MEDS: 0.9% Saline Lock 10 ML Syringe IV (21:18)
[2023-11-05 21:25] VITALS: BP 135/55; PULSE 61; RESP 18; O2SAT 98
[2023-11-06] MEDS: Levothyroxine 100 MCG Tablet PO (06:04)
[2023-11-06 06:05] VITALS: BP 124/59; PULSE 57; RESP 16; TEMP 36.7; O2SAT 98
[2023-11-06] MEDS: Aspirin E.C. 81 MG Tablet PO (08:01)
[2023-11-06] MEDS: Calcium Carbonate 500 MG Tablet PO ×2 (08:01→21:23)
[2023-11-06] MEDS: Senna/Docusate Sodium 1 Tablet 2 TABLET PO ×2 (08:01→21:28)
[2023-11-06] MEDS: amLODIPine 2.5 MG Tablet PO (08:01)
[2023-11-06] MEDS: Menthol/Lanolin/Calamine/Znox 113 GM Tube 1 APPLIC TOPICAL ×2 (08:01→21:29)
[2023-11-06] MEDS: Arthritis Pain Compound 60 CLICK TUBE TOPICAL ×2 (08:01→21:23)
[2023-11-06] MEDS: Cholecalciferol (VIT D3) 25 MCG TABLET (1,000 UNITS) 50 MCG PO (08:01)
[2023-11-06] MEDS: Nystatin Powder 15gm Bottle 1 APPLIC TOPICAL ×2 (08:02→21:29)
[2023-11-06 09:31] VITALS: BMI 34.9
[2023-11-06 10:00] VITALS: BP 144/69; PULSE 61
[2023-11-06] MEDS: Cefadroxil 500 MG CAPSULE PO ×2 (10:01→21:24)
--- NOTE | 2023-11-06 11:33 | PN_ITS ---
Progress Note Afebrile Blood pressure is stable. Occasional systolic greater than 130 but diastolics are always within normal limits. Good appetite, sleeping well. Blanco was discontinued this AM and she has voided twice. PVR's have been 43 and 4. Denies dysuria. Denies lightheadedness, chest pain, cough, shortness of breath, abdominal pain, nausea/vomiting, suprapubic pain and calf pain. Physical Exam Const alert and no apparent distress General Appearance: cooperative and well kempt Resp normal respiratory effort and clear to auscultation bilaterally Cardio regular rate, regular rhythm and no gallops Cardio Narrative: Rare ectopic beat GI normal to inspection, nondistended, normoactive bowel sounds, soft to palpation and non-tender Extremity Extremity Narrative: Trace ankle edema Skin no rashes or lesions noted Assessment & Plan Assessment/Plan (1) Debility: (2) Acute stroke due to ischemia: (3) UTI (urinary tract infection): QUALIFIERS: Urinary tract infection type: acute cystitis Hematuria presence: with hematuria Qualified Code(s): N30.01 - Acute cystitis with hematuria (4) Hematuria: QUALIFIERS: Hematuria type: asymptomatic microscopic Qualified Code(s): R31.21 - Asymptomatic microscopic hematuria PLAN: resolved (5) Benign essential hypertension: (6) Urine retention: PLAN: Plan 1. Continue therapy 2. Recheck lab on Thursday 3. Finish 7 days of antibiotics for E. coli urinary tract infection 4. Resume Lovenox 40 mg subcu daily for DVT prophylaxis Visit Charges Inpatient E&M: 41826 [facility] Hosp L1
[2023-11-06 17:33] VITALS: BP 142/69; PULSE 57; RESP 16; TEMP 36.8; O2SAT 98
[2023-11-06] MEDS: 0.9% Saline Lock 10 ML Syringe IV (21:30)
[2023-11-07 00:06] VITALS: BMI 34.9
[2023-11-07] MEDS: Levothyroxine 100 MCG Tablet PO (05:34)
[2023-11-07] MEDS: Enoxaparin 40 MG/0.4 ML Syringe SC (05:34)
[2023-11-07 06:00] VITALS: BP 119/41; PULSE 58; RESP 17; TEMP 36.6; O2SAT 99
[2023-11-07 06:54] VITALS: O2SAT 99
[2023-11-07] MEDS: Arthritis Pain Compound 60 CLICK TUBE TOPICAL ×2 (08:54→20:24)
[2023-11-07] MEDS: amLODIPine 2.5 MG Tablet PO (08:58)
[2023-11-07] MEDS: Cefadroxil 500 MG CAPSULE PO ×2 (08:58→20:25)
[2023-11-07] MEDS: Calcium Carbonate 500 MG Tablet PO ×2 (08:58→20:25)
[2023-11-07] MEDS: Cholecalciferol (VIT D3) 25 MCG TABLET (1,000 UNITS) 50 MCG PO (08:58)
[2023-11-07] MEDS: Aspirin E.C. 81 MG Tablet PO (08:58)
[2023-11-07] MEDS: Menthol/Lanolin/Calamine/Znox 113 GM Tube 1 APPLIC TOPICAL ×2 (08:59→20:26)
[2023-11-07] MEDS: Nystatin Powder 15gm Bottle 1 APPLIC TOPICAL ×2 (09:05→20:25)
[2023-11-07 17:00] VITALS: BMI 34.9
[2023-11-07 17:57] VITALS: BP 115/56; PULSE 68; RESP 15; TEMP 36.3; O2SAT 96
[2023-11-07 22:31] VITALS: BMI 34.9
[2023-11-08] MEDS: Enoxaparin 40 MG/0.4 ML Syringe SC (05:25)
[2023-11-08] MEDS: Levothyroxine 112 MCG Tablet PO (05:26)
[2023-11-08 05:27] VITALS: BP 117/48; PULSE 54; RESP 18; TEMP 37; O2SAT 97
[2023-11-08] MEDS: 0.9% Saline Lock 10 ML Syringe IV (05:39)
[2023-11-08] MEDS: Aspirin E.C. 81 MG Tablet PO (08:20)
[2023-11-08] MEDS: Cholecalciferol (VIT D3) 25 MCG TABLET (1,000 UNITS) 50 MCG PO (09:50)
[2023-11-08] MEDS: Senna/Docusate Sodium 1 Tablet 2 TABLET PO ×2 (09:50→20:11)
[2023-11-08] MEDS: amLODIPine 2.5 MG Tablet PO (09:50)
[2023-11-08] MEDS: Menthol/Lanolin/Calamine/Znox 113 GM Tube 1 APPLIC TOPICAL ×2 (09:50→20:11)
[2023-11-08] MEDS: Arthritis Pain Compound 60 CLICK TUBE TOPICAL ×2 (09:50→20:10)
[2023-11-08] MEDS: Cefadroxil 500 MG CAPSULE PO ×2 (09:50→20:10)
[2023-11-08] MEDS: Calcium Carbonate 500 MG Tablet PO ×2 (09:50→20:12)
[2023-11-08] MEDS: Nystatin Powder 15gm Bottle 1 APPLIC TOPICAL ×2 (09:51→20:11)
[2023-11-08 17:52] VITALS: BP 136/64; PULSE 71; RESP 16; TEMP 37.2; O2SAT 93
[2023-11-08 22:20] VITALS: BMI 34.9
[2023-11-09] MEDS: Enoxaparin 40 MG/0.4 ML Syringe SC (05:09)
[2023-11-09] MEDS: Levothyroxine 100 MCG Tablet PO (05:09)
[2023-11-09] MEDS: Acetaminophen 325 MG Tablet 650 MG PO ×4 (05:10→21:32)
[2023-11-09 05:23] LABS: Hematocrit 40.2 % (37-47); Hemoglobin 13.2 g/dL (12.0-15.0)
[2023-11-09 05:50] LABS: Anion Gap 4 (5-15); BUN 15 mg/dL (7-18); BUN/Creat Ratio 12.1 RATIO (10-20); Calcium,Total 9.7 mg/dL (8.5-10.1); Chloride 105 mmol/L (98-107); Creatinine, Serum 1.24 mg/dL (0.55-1.02); EST Glomerular Filtration Rate 45 mL/min (>60); Est Glom Filt Rate - Afr Amer 55 mL/min (>60); Estimated Creatinine Clearance 45.95 ml/min; Glucose 96 mg/dL (74-106); Potassium 4.2 mmol/L (3.5-5.1); Sodium Level 138 mmol/L (136-145)
[2023-11-09 06:00] VITALS: BP 150/68; PULSE 65; RESP 16; TEMP 36.9; O2SAT 95
[2023-11-09] MEDS: Aspirin E.C. 81 MG Tablet PO (08:06)
[2023-11-09] MEDS: amLODIPine 2.5 MG Tablet PO (08:07)
[2023-11-09] MEDS: Calcium Carbonate 500 MG Tablet PO ×2 (08:07→21:25)
[2023-11-09] MEDS: Cefadroxil 500 MG CAPSULE PO (08:07)
[2023-11-09] MEDS: Senna/Docusate Sodium 1 Tablet 2 TABLET PO ×2 (08:07→21:32)
[2023-11-09] MEDS: Cholecalciferol (VIT D3) 25 MCG TABLET (1,000 UNITS) 50 MCG PO (08:08)
[2023-11-09] MEDS: Arthritis Pain Compound 60 CLICK TUBE TOPICAL ×2 (08:08→21:32)
[2023-11-09] MEDS: Nystatin Powder 15gm Bottle 1 APPLIC TOPICAL ×2 (08:09→21:33)
[2023-11-09] MEDS: Menthol/Lanolin/Calamine/Znox 113 GM Tube 1 APPLIC TOPICAL ×2 (08:09→21:33)
[2023-11-09] MEDS: Ensure Plus High Protein 120 ML LIQUID PO (08:09)
--- NOTE | 2023-11-09 11:51 | PCM.PROGNOTE ---
Subjective Subjective Evelina was seen on TEAM rounds today. Afebrile VSS -blood pressure over the weekend ranged from 115/56 to 136/64 however this morning it was 150/68. Heart rate is within normal limits. Maintaining appropriate oxygen saturation on RA Oral intake - FOOD good FLUIDS good Discussed with nursing - no problems that need addressed Reviewed the THERAPY notes Medication list reviewed. She complained of sore throat and feeling achy starting last night. Rapid COVID today was negative. Denies lightheadedness. She has an occasional cough which is dry. Denies SOB and CP. All lab today was personally reviewed. Hemoglobin is 13.2. Sodium is 138 and the potassium is 4.2. The BUN is 15 and the creatinine is 1.24. It was 1.27 at admission to rehab. It came down to 1.06 with IV fluids but, it goes right back up after fluids stopped and the BUN/CREAT ratio is only 12 so I suspect she has stage 3a CRF. Objective Data Objective Data Vital Signs: Vital Signs Temp Pulse Resp BP Pulse Ox O2 Del Method O2 Flow Rate 98.5 F 65 16 150/68 H 95 Room Air 2 11/09/23 06:00 11/09/23 06:00 11/09/23 06:00 11/09/23 06:00 11/09/23 06:00 11/09/23 07:45 11/07/23 06:54 FiO2 21 11/02/23 21:30 Oxygen Flow Rate (L/min) 2 Oxygen Delivery Method Room Air Weight: 204 lb 9.423 oz Body Mass Index (BMI) 34.9 Intake & Output: Intake and Output for Last 24 Hours 11/07/23 11/08/23 11/09/23 23:59 23:59 23:59 Intake Total 1550 / 1550 1560 / 1560 700 / 700 Output Total 1750 / 1750 1350 / 1350 850 / 850 Balance -200 / -200 210 / 210 -150 / -150 Lab / Micro Data 11/09/23 05:15 11/09/23 05:15 Labs: Laboratory Results - last 24 hr 11/09/23 05:15: Hgb 13.2, Hct 40.2, Sodium 138, Potassium 4.2, Chloride 105, Carbon Dioxide 29.0, Anion Gap 4 L, BUN 15, Creatinine 1.24 H, Estim Creat Clear Calc 45.95, Est GFR (MDRD) Af Amer 55 L, Est GFR (MDRD) Non-Af 45 L, BUN/Creatinine Ratio 12.1, Glucose 96, Calcium 9.7 Micro: Microbiology 11/09/23 09:50 Nasal Secretion SARS-CoV-2 Antigen (Rapid) - Final 11/02/23 16:15 Urine Catheter - Blanco Urine Culture - Final Presumptive E. coli 10/30/23 05:20 Urine, Catheterized Urine Culture - Final Culture exhibits no growth. Physical Exam Const alert, oriented x3 and no apparent distress General Appearance: cooperative HEENT moist oral mucous membranes Resp normal respiratory effort and clear to auscultation bilaterally Effort and Inspection: Negative for tachypneic or labored Cardio regular rate, regular rhythm and no gallops GI normal to inspection, nondistended, normoactive bowel sounds, soft to palpation and non-tender Extremity no calf tenderness General Extremity: Negative for edema Skin Rashes: no rashes Psych affect normal Assessment & Plan Assessment/Plan (1) Debility: (2) Right hemiparesis: (3) Aphasia: (4) Acute stroke due to ischemia: (5) Benign essential hypertension: (6) Meningioma: (7) Stage 3 chronic kidney disease: QUALIFIERS: Chronic kidney disease stage 3 subtype: stage 3a (GFR 45-59) Qualified Code(s): N18.31 - Chronic kidney disease, stage 3a PLAN: Plan 1. Continue therapy 2. Cepacol lozenges and Robitussin DM ordered PRN. 3. will come in for shared care/family training on . Plan DC for Thursday. 4. Will need a liver panel and lipid panel in a few weeks after DC form Rehab 5. Goal for the BP is consistently < 130/80. She is tolerating the Norvasc with no adverse side effects. 6. Needs an event monitor ordered at DC Charges/Coding Visit Charges Inpatient E&M: 28848 Subs Hosp L1
--- NOTE | 2023-11-09 12:42 | CASEMGMT ---
Social Work IDT met with patient and for Team meeting. Discussed patient's progress in PT/OT/ST/SN. Educated to Medicare DC 11/19. Offered for to participate in therapy session to determine if he is able to care for pt at home or will need a SNF. agreed and scheduled with therapist. SW to follow for DC needs. Will ReTeam next week. Camille Pond, STATIONARY ENGINEER SUPERVISOR [employer]
[2023-11-09 12:46] VITALS: BMI 34.9
[2023-11-09] MEDS: BENZOCAINE/MENTHOL 1 LOZENGE MUCOUS MEM ×2 (13:58→21:34)
[2023-11-09 17:42] VITALS: BP 137/70; PULSE 66; RESP 17; TEMP 36.8; O2SAT 97
[2023-11-09 21:05] VITALS: BMI 34.9
[2023-11-09 21:30] VITALS: RESP 15
[2023-11-09] MEDS: guaiFENesin Dm 10 ML UDC PO (21:33)
[2023-11-10 06:00] VITALS: BP 117/61; PULSE 66; RESP 18; TEMP 36.2; O2SAT 97
[2023-11-10] MEDS: Enoxaparin 40 MG/0.4 ML Syringe SC (06:07)
[2023-11-10] MEDS: Levothyroxine 100 MCG Tablet PO (06:08)
[2023-11-10] MEDS: Aspirin E.C. 81 MG Tablet PO (08:10)
[2023-11-10] MEDS: Arthritis Pain Compound 60 CLICK TUBE TOPICAL ×2 (08:10→21:00)
[2023-11-10] MEDS: Cholecalciferol (VIT D3) 25 MCG TABLET (1,000 UNITS) 50 MCG PO (08:11)
[2023-11-10] MEDS: Senna/Docusate Sodium 1 Tablet 2 TABLET PO (08:11)
[2023-11-10] MEDS: Calcium Carbonate 500 MG Tablet PO ×2 (08:11→21:13)
[2023-11-10] MEDS: amLODIPine 5 MG Tablet PO (08:11)
[2023-11-10] MEDS: Nystatin Powder 15gm Bottle 1 APPLIC TOPICAL ×2 (08:14→21:12)
[2023-11-10] MEDS: Menthol/Lanolin/Calamine/Znox 113 GM Tube 1 APPLIC TOPICAL ×2 (08:14→21:11)
--- NOTE | 2023-11-10 08:48 | PN.REHAB_ITS ---
Subjective Subjective Patient seen, examined. She is progressing with therapy. She did complain of cough, sore throat, but feels she is improving with Robitussin DM, and cepacol lozenges. She has no other problems, concerns, issues, complaints. Objective Data Objective Data Vital Signs: Vital Signs Temp Pulse Resp BP Pulse Ox O2 Del Method O2 Flow Rate 97.1 F L 66 18 117/61 97 Room Air 2 11/10/23 06:00 11/10/23 06:00 11/10/23 06:00 11/10/23 06:00 11/10/23 06:00 11/10/23 06:00 11/07/23 06:54 FiO2 21 11/02/23 21:30 Oxygen Flow Rate (L/min) 2 Oxygen Delivery Method Room Air Weight: 92.8 kg Body Mass Index (BMI) 34.9 Intake & Output: Intake and Output for Last 24 Hours 11/08/23 11/09/23 11/10/23 23:59 23:59 23:59 Intake Total 1560 / 1560 1560 / 1560 Output Total 1350 / 1350 1550 / 1850 940 / 940 Balance 210 / 210 10 / -290 -940 / -940 Lab / Micro Data 11/09/23 05:15 11/09/23 05:15 Micro: Microbiology 11/09/23 09:50 Nasal Secretion SARS-CoV-2 Antigen (Rapid) - Final 11/02/23 16:15 Urine Catheter - Blanco Urine Culture - Final Presumptive E. coli 10/30/23 05:20 Urine, Catheterized Urine Culture - Final Culture exhibits no growth. Indicators for Scoring Admitted with or Primary Diagnosis of CVA/Stroke: Yes Hx of CVA/Stroke: Yes Modified [place] Score MRS Score at time of Evaluation: 4-Moderate/severe disability Physical Exam Const alert, oriented x3 and no apparent distress General Appearance: cooperative HEENT moist oral mucous membranes Resp normal respiratory effort and clear to auscultation bilaterally Effort and Inspection: Negative for tachypneic or labored Cardio regular rate, regular rhythm and no gallops GI normal to inspection, nondistended, normoactive bowel sounds, soft to palpation and non-tender Extremity no calf tenderness General Extremity: Negative for edema Skin Rashes: no rashes Psych affect normal Assessment & Plan Assessment/Plan (1) Stroke: (2) Essential (primary) hypertension: (3) Hyperlipidemia: (4) Hypothyroidism: QUALIFIERS: 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 * Debility - PT/OT/ST. * Pain - Tylenol 650mg q6 prn, Arthritis pain compound. * Bowel - senna/colace 2 tablets bid, MOM 30ml x 1 prn, Dulcolax 10mg pr x 1 prn. * DVT prophylaxis - Lovenox 40mg sc daily. * Hypertension - Amlodipine 5mg daily. * Stroke - Aspirin 81mg daily. * Hyperlipidemia - Atorvastatin 40mg qhs. * Sore throat - Cepacol 1 lozenge q2h prn. * Indigestion - TUMS 500mg bid. * Vitamin D deficiency - D3 50mcg daily. * Cough - Robitussin DM 10ml q6 prn. * Hypothyroidism - Levothyroxine 100mcg daily, 112mcg sundays. * Skin irritation - Calmoseptine topical bid. * Tinea Corporis - Nystatin powder topical bid.
[2023-11-10] MEDS: Acetaminophen 325 MG Tablet 650 MG PO ×2 (10:13→21:15)
[2023-11-10] MEDS: BENZOCAINE/MENTHOL 1 LOZENGE MUCOUS MEM (10:14)
[2023-11-10 14:48] VITALS: O2SAT 97
[2023-11-10 17:52] VITALS: BP 120/65; PULSE 77; RESP 16; TEMP 36.8; O2SAT 95
[2023-11-10 21:00] VITALS: BMI 34.9
[2023-11-10] MEDS: guaiFENesin Dm 10 ML UDC PO (21:13)
[2023-11-11 06:00] VITALS: BP 130/58; PULSE 76; RESP 16; TEMP 36.6; O2SAT 96; BMI 35.2
[2023-11-11] MEDS: Enoxaparin 40 MG/0.4 ML Syringe SC (06:59)
[2023-11-11] MEDS: Levothyroxine 100 MCG Tablet PO (06:59)
--- NOTE | 2023-11-11 08:19 | PN.REHAB_ITS ---
Subjective Subjective Patient seen, examined today. Her sore throat, cough persists, covid negative. She had insomnia last night, but she declined hypnotic. Objective Data Objective Data Vital Signs: Vital Signs Temp Pulse Resp BP Pulse Ox O2 Del Method O2 Flow Rate 97.8 F 76 16 130/58 H 96 Room Air 2 11/11/23 06:00 11/11/23 06:00 11/11/23 06:00 11/11/23 06:00 11/11/23 06:00 11/11/23 06:00 11/07/23 06:54 FiO2 21 11/02/23 21:30 Oxygen Flow Rate (L/min) 2 Oxygen Delivery Method Room Air Weight: 93.6 kg Body Mass Index (BMI) 35.2 Intake & Output: Intake and Output for Last 24 Hours 11/09/23 11/10/23 11/11/23 23:59 23:59 23:59 Intake Total 1560 / 1560 710 / 710 [id number] / [id number] Output Total 1550 / 1850 1340 / 1340 650 / 650 Balance 10 / -290 -630 / -630 [id number] / [id number] Lab / Micro Data 11/09/23 05:15 11/09/23 05:15 Micro: Microbiology 11/09/23 09:50 Nasal Secretion SARS-CoV-2 Antigen (Rapid) - Final 11/02/23 16:15 Urine Catheter - Blanco Urine Culture - Final Presumptive E. coli 10/30/23 05:20 Urine, Catheterized Urine Culture - Final Culture exhibits no growth. Indicators for Scoring Admitted with or Primary Diagnosis of CVA/Stroke: Yes Hx of CVA/Stroke: Yes Modified [place] Score MRS Score at time of Evaluation: 4-Moderate/severe disability Physical Exam Const alert, oriented x3 and no apparent distress General Appearance: cooperative HEENT moist oral mucous membranes Resp normal respiratory effort and clear to auscultation bilaterally Effort and Inspection: Negative for tachypneic or labored Cardio regular rate, regular rhythm and no gallops GI normal to inspection, nondistended, normoactive bowel sounds, soft to palpation and non-tender Extremity no calf tenderness General Extremity: Negative for edema Skin Rashes: no rashes Psych affect normal Assessment & Plan Assessment/Plan (1) Stroke: (2) Essential (primary) hypertension: (3) Hyperlipidemia: (4) Hypothyroidism: QUALIFIERS: 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 * Debility - PT/OT/ST. * Pain - Tylenol 650mg q6 prn, Arthritis pain compound. * Bowel - senna/colace 2 tablets bid, MOM 30ml x 1 prn, Dulcolax 10mg pr x 1 prn. * DVT prophylaxis - Lovenox 40mg sc daily. * Hypertension - Amlodipine 5mg daily. * Stroke - Aspirin 81mg daily. * Hyperlipidemia - Atorvastatin 40mg qhs. * Sore throat - Cepacol 1 lozenge q2h prn. * Indigestion - TUMS 500mg bid. * Vitamin D deficiency - D3 50mcg daily. * Cough - Robitussin DM 10ml q6 prn. * Hypothyroidism - Levothyroxine 100mcg daily, 112mcg sundays. * Skin irritation - Calmoseptine topical bid. * Tinea Corporis - Nystatin powder topical bid.
[2023-11-11] MEDS: Aspirin E.C. 81 MG Tablet PO (08:26)
[2023-11-11] MEDS: amLODIPine 5 MG Tablet PO (08:26)
[2023-11-11] MEDS: Arthritis Pain Compound 60 CLICK TUBE TOPICAL ×2 (08:26→21:38)
[2023-11-11] MEDS: Calcium Carbonate 500 MG Tablet PO ×2 (08:26→21:38)
[2023-11-11] MEDS: Cholecalciferol (VIT D3) 25 MCG TABLET (1,000 UNITS) 50 MCG PO (08:26)
[2023-11-11] MEDS: Menthol/Lanolin/Calamine/Znox 113 GM Tube 1 APPLIC TOPICAL (08:29)
[2023-11-11] MEDS: Nystatin Powder 15gm Bottle 1 APPLIC TOPICAL (08:30)
[2023-11-11 09:22] VITALS: O2SAT 96
[2023-11-11 16:07] VITALS: BMI 35.2
[2023-11-11 17:19] VITALS: BP 136/73; PULSE 75; RESP 14; TEMP 37.5; O2SAT 96
[2023-11-11] MEDS: Acetaminophen 325 MG Tablet 650 MG PO (21:38)
[2023-11-11] MEDS: guaiFENesin Dm 10 ML UDC PO (21:42)
[2023-11-12 05:21] VITALS: BP 118/61; PULSE 62; RESP 16; TEMP 36.6; O2SAT 94
[2023-11-12] MEDS: Levothyroxine 100 MCG Tablet PO (05:21)
[2023-11-12] MEDS: Enoxaparin 40 MG/0.4 ML Syringe SC (05:22)
[2023-11-12] MEDS: Acetaminophen 325 MG Tablet 650 MG PO (05:25)
[2023-11-12] MEDS: guaiFENesin Dm 10 ML UDC PO ×2 (05:26→21:09)
[2023-11-12 07:59] VITALS: O2SAT 95
[2023-11-12] MEDS: Senna/Docusate Sodium 1 Tablet 2 TABLET PO (08:15)
[2023-11-12] MEDS: Cholecalciferol (VIT D3) 25 MCG TABLET (1,000 UNITS) 50 MCG PO (08:15)
[2023-11-12] MEDS: Arthritis Pain Compound 60 CLICK TUBE TOPICAL ×2 (08:15→21:07)
[2023-11-12] MEDS: amLODIPine 5 MG Tablet PO (08:15)
[2023-11-12] MEDS: Aspirin E.C. 81 MG Tablet PO (08:16)
[2023-11-12] MEDS: Menthol/Lanolin/Calamine/Znox 113 GM Tube 1 APPLIC TOPICAL ×2 (08:16→21:07)
[2023-11-12] MEDS: Calcium Carbonate 500 MG Tablet PO ×2 (08:16→21:06)
[2023-11-12] MEDS: Nystatin Powder 15gm Bottle 1 APPLIC TOPICAL ×2 (08:16→21:07)
--- NOTE | 2023-11-12 11:11 | PN.REHAB_ITS ---
Subjective Subjective Patient seen, examined. Her sore throat, cough are improving, she slept better last night, no new complaints, doing well with therapy, anticipate a home discharge with . Objective Data Objective Data Vital Signs: Vital Signs Temp Pulse Resp BP Pulse Ox O2 Del Method O2 Flow Rate 97.9 F 62 16 118/61 95 Room Air 2 11/12/23 05:21 11/12/23 05:21 11/12/23 05:21 11/12/23 05:21 11/12/23 07:59 11/12/23 07:59 11/07/23 06:54 FiO2 21 11/02/23 21:30 Oxygen Flow Rate (L/min) 2 Oxygen Delivery Method Room Air Weight: 93.6 kg Body Mass Index (BMI) 35.2 Intake & Output: Intake and Output for Last 24 Hours 11/10/23 11/11/23 11/12/23 23:59 23:59 23:59 Intake Total 710 / 710 350549 / 910990 220 / 220 Output Total 1340 / 1340 1600 / 1600 750 / 750 Balance -630 / -630 560343 / 157776 -530 / -530 Lab / Micro Data 11/09/23 05:15 11/09/23 05:15 Micro: Microbiology 11/09/23 09:50 Nasal Secretion SARS-CoV-2 Antigen (Rapid) - Final 11/02/23 16:15 Urine Catheter - Blanco Urine Culture - Final Presumptive E. coli 10/30/23 05:20 Urine, Catheterized Urine Culture - Final Culture exhibits no growth. Indicators for Scoring Admitted with or Primary Diagnosis of CVA/Stroke: Yes Hx of CVA/Stroke: Yes Modified [place] Score MRS Score at time of Evaluation: 4-Moderate/severe disability Physical Exam Const alert General Appearance: cooperative HEENT normocephalic Eyes PERRL and EOMs intact bilaterally Neck supple, no JVD and no carotid bruits Resp normal respiratory effort, normal air movement and clear to auscultation bilaterally Effort and Inspection: Negative for tachypneic or labored Cardio regular rate and regular rhythm GI normal to inspection, nondistended, normoactive bowel sounds, non-tender and non-distended Extremity normal capillary refill General Extremity: Negative for edema Skin no rashes or lesions noted General Skin Exam: no breakdown Rashes: no rashes Psych affect normal Appearance: appropriate Assessment & Plan Assessment/Plan (1) Stroke: (2) Essential (primary) hypertension: (3) Hyperlipidemia: (4) Hypothyroidism: QUALIFIERS: 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 * Debility - PT/OT/ST. * Pain - Tylenol 650mg q6 prn, Arthritis pain compound. * Bowel - senna/colace 2 tablets bid, MOM 30ml x 1 prn, Dulcolax 10mg pr x 1 prn. * DVT prophylaxis - Lovenox 40mg sc daily. * Hypertension - Amlodipine 5mg daily. * Stroke - Aspirin 81mg daily. * Hyperlipidemia - Atorvastatin 40mg qhs. * Sore throat - Cepacol 1 lozenge q2h prn. * Indigestion - TUMS 500mg bid. * Vitamin D deficiency - D3 50mcg daily. * Cough - Robitussin DM 10ml q6 prn. * Hypothyroidism - Levothyroxine 100mcg daily, 112mcg sundays. * Skin irritation - Calmoseptine topical bid. * Tinea Corporis - Nystatin powder topical bid.
[2023-11-12 15:21] VITALS: BMI 35.2
[2023-11-12 17:15] VITALS: BP 122/57; PULSE 58; RESP 16; TEMP 36.5; O2SAT 95
[2023-11-12 21:53] VITALS: BMI 35.2
[2023-11-13 06:00] VITALS: BP 126/63; PULSE 59; RESP 16; TEMP 36.6; O2SAT 94
[2023-11-13] MEDS: Levothyroxine 100 MCG Tablet PO (06:13)
[2023-11-13] MEDS: Enoxaparin 40 MG/0.4 ML Syringe SC (06:13)
[2023-11-13] MEDS: Calcium Carbonate 500 MG Tablet PO ×2 (08:06→21:27)
[2023-11-13] MEDS: Aspirin E.C. 81 MG Tablet PO (08:06)
[2023-11-13] MEDS: Cholecalciferol (VIT D3) 25 MCG TABLET (1,000 UNITS) 50 MCG PO (08:06)
[2023-11-13] MEDS: Arthritis Pain Compound 60 CLICK TUBE TOPICAL ×2 (08:06→21:27)
[2023-11-13] MEDS: Senna/Docusate Sodium 1 Tablet 2 TABLET PO ×2 (08:06→21:27)
[2023-11-13] MEDS: amLODIPine 5 MG Tablet PO (08:06)
[2023-11-13] MEDS: Menthol/Lanolin/Calamine/Znox 113 GM Tube 1 APPLIC TOPICAL ×2 (08:07→21:29)
[2023-11-13] MEDS: Nystatin Powder 15gm Bottle 1 APPLIC TOPICAL ×2 (08:07→21:29)
[2023-11-13] MEDS: Acetaminophen 325 MG Tablet 650 MG PO (08:09)
[2023-11-13 16:12] VITALS: BMI 35.2
[2023-11-13 17:06] VITALS: BP 127/61; PULSE 58; RESP 15; TEMP 36.5; O2SAT 99
[2023-11-13] MEDS: guaiFENesin Dm 10 ML UDC PO (21:30)
[2023-11-13 22:40] VITALS: BMI 35.2
[2023-11-14] MEDS: Levothyroxine 100 MCG Tablet PO (05:40)
[2023-11-14] MEDS: Enoxaparin 40 MG/0.4 ML Syringe SC (05:40)
[2023-11-14 06:00] VITALS: BP 123/70; PULSE 56; RESP 18; TEMP 36.9; O2SAT 95
--- NOTE | 2023-11-14 07:15 | NURSING ---
0700; pt called this am. blood tinged urine noted with a few small clots. states she had some burning this am with urination. urine mixed with stool this am. reported to tracy mccauley.
[2023-11-14 09:01] LABS: Bacteria 0 SEEN /hpf (None Seen); Mucous, Urine 0 SEEN /hpf (<or=2+); Squamous Epithelial Cells - UA 0 SEEN /hpf (5-10)
[2023-11-14] MEDS: Calcium Carbonate 500 MG Tablet PO ×2 (09:08→21:30)
[2023-11-14] MEDS: Cholecalciferol (VIT D3) 25 MCG TABLET (1,000 UNITS) 50 MCG PO (09:08)
[2023-11-14] MEDS: amLODIPine 5 MG Tablet PO (09:09)
[2023-11-14] MEDS: Aspirin E.C. 81 MG Tablet PO (09:09)
[2023-11-14] MEDS: Senna/Docusate Sodium 1 Tablet 2 TABLET PO (09:09)
[2023-11-14] MEDS: Arthritis Pain Compound 60 CLICK TUBE TOPICAL ×2 (09:11→21:29)
[2023-11-14 09:18] LABS: Color, Urine Red (Yellow); Glucose, Dipstick Normal (Normal); Ketone-Dipstick 15 mg/dl (Negative); Leukocyte Esterase-Dipstick 500 /ul (Negative); Nitrite-Dipstick Negative (Negative); Occult Blood-Urine 250 /ul (Negative); Protein-Dipstick 500 mg/dl (Negative); Specific Gravity, Urine 1.015 (1.002-1.030); Urine Bilirubin Dipstick Negative (Negative); Urine Clarity Turbid (Clear); Urine Urobilinogen Normal (Normal)
[2023-11-14 09:26] LABS: Red Blood Cells-Urine > 100 SEEN /hpf (0-5); White Blood Cells 50-100 SEEN /hpf (0-5)
[2023-11-14 09:32] VITALS: BP 119/66; PULSE 66; TEMP 36.6
[2023-11-14 10:41] VITALS: BMI 35.2
[2023-11-14] MEDS: Ciprofloxacin 500 MG Tablet PO ×2 (11:31→21:30)
[2023-11-14 18:00] VITALS: BP 143/62; PULSE 70; RESP 17; TEMP 36.7; O2SAT 93
[2023-11-14 21:30] VITALS: BMI 35.2
[2023-11-14] MEDS: Menthol/Lanolin/Calamine/Znox 113 GM Tube 1 APPLIC TOPICAL (21:30)
[2023-11-14] MEDS: Nystatin Powder 15gm Bottle 1 APPLIC TOPICAL (21:30)
[2023-11-14 22:00] VITALS: PULSE 69; RESP 16
[2023-11-15 06:00] VITALS: BP 114/51; PULSE 61; RESP 16; TEMP 36.4; O2SAT 95
[2023-11-15] MEDS: Enoxaparin 40 MG/0.4 ML Syringe SC (06:23)
[2023-11-15] MEDS: Levothyroxine 112 MCG Tablet PO (06:24)
[2023-11-15] MEDS: amLODIPine 5 MG Tablet PO (09:45)
[2023-11-15] MEDS: Arthritis Pain Compound 60 CLICK TUBE TOPICAL ×2 (09:46→20:27)
[2023-11-15] MEDS: Senna/Docusate Sodium 1 Tablet 2 TABLET PO ×2 (09:46→20:27)
[2023-11-15] MEDS: Ciprofloxacin 500 MG Tablet PO ×2 (09:46→20:26)
[2023-11-15] MEDS: Cholecalciferol (VIT D3) 25 MCG TABLET (1,000 UNITS) 50 MCG PO (09:46)
[2023-11-15] MEDS: Aspirin E.C. 81 MG Tablet PO (09:46)
[2023-11-15] MEDS: Calcium Carbonate 500 MG Tablet PO ×2 (09:46→20:28)
[2023-11-15 12:56] VITALS: BMI 35.2
[2023-11-15 18:00] VITALS: BP 104/63; PULSE 65; RESP 17; TEMP 36.3; O2SAT 96
[2023-11-15 20:11] VITALS: BMI 35.2
[2023-11-15] MEDS: Menthol/Lanolin/Calamine/Znox 113 GM Tube 1 APPLIC TOPICAL (20:27)
[2023-11-15] MEDS: Nystatin Powder 15gm Bottle 1 APPLIC TOPICAL (20:28)
[2023-11-15 22:00] VITALS: PULSE 67; RESP 15; O2SAT 95
[2023-11-16] MEDS: Levothyroxine 100 MCG Tablet PO (04:53)
[2023-11-16] MEDS: Enoxaparin 40 MG/0.4 ML Syringe SC (04:53)
[2023-11-16 04:59] VITALS: BP 125/56; PULSE 61; RESP 18; TEMP 37.1; O2SAT 96
[2023-11-16] MEDS: Arthritis Pain Compound 60 CLICK TUBE TOPICAL ×2 (08:00→20:55)
[2023-11-16] MEDS: Cholecalciferol (VIT D3) 25 MCG TABLET (1,000 UNITS) 50 MCG PO (08:01)
[2023-11-16] MEDS: Calcium Carbonate 500 MG Tablet PO ×2 (08:01→20:56)
[2023-11-16] MEDS: amLODIPine 5 MG Tablet PO (08:02)
[2023-11-16] MEDS: Ciprofloxacin 500 MG Tablet PO (08:02)
[2023-11-16] MEDS: Aspirin E.C. 81 MG Tablet PO (08:02)
[2023-11-16] MEDS: Menthol/Lanolin/Calamine/Znox 113 GM Tube 1 APPLIC TOPICAL ×2 (08:06→20:58)
[2023-11-16] MEDS: Nystatin Powder 15gm Bottle 1 APPLIC TOPICAL ×2 (08:06→20:58)
--- NOTE | 2023-11-16 11:25 | PCM.PROGNOTE ---
Subjective Subjective Day #3 antibiotics for E. coli UTI. Leonora was seen on team rounds today. Her , Daniel, was present in the room for rounds. Afebrile VSS -BP is well-controlled. Maintaining appropriate oxygen saturation on RA Oral intake - FOOD good FLUIDS good Discussed with nursing - no problems that need addressed Reviewed the THERAPY notes Medication list reviewed. She had a UA done on 11/14/2023 and it showed 50-100 WBCs per high-power field and no bacteria. Urine culture was once again positive for pansensitive E. coli, 11,000-25,000 colonies. She denies dysuria, flank pain, nausea/vomiting today. She was treated earlier in the admission for a pansensitive E. coli. She was started on ciprofloxacin on 11/14/2023. she tells me that this is giving her loose stool, she thinks. She denies cephalgia, lightheadedness, chest pain, shortness of breath, cough, nausea/vomiting/abdominal pain, calf pain and dysuria. Objective Data Objective Data Vital Signs: Vital Signs Temp Pulse Resp BP Pulse Ox O2 Del Method O2 Flow Rate 98.7 F 61 18 125/56 H 96 Room Air 2 11/16/23 04:59 11/16/23 04:59 11/16/23 04:59 11/16/23 04:59 11/16/23 04:59 11/16/23 04:59 11/13/23 22:20 FiO2 21 11/02/23 21:30 Oxygen Flow Rate (L/min) 2 Oxygen Delivery Method Room Air Weight: 206 lb 5.643 oz Body Mass Index (BMI) 35.2 Intake & Output: Intake and Output for Last 24 Hours 11/14/23 11/15/23 11/16/23 23:59 23:59 23:59 Intake Total 1979 / 1979 1250 / 1250 640 / 640 Output Total 2099 / 2100 1500 / 1500 900 / 900 Balance -120 / -120 -250 / -250 -260 / -260 Lab / Micro Data 11/09/23 05:15 11/09/23 05:15 Micro: Microbiology 11/14/23 08:50 Urine Catheter - Catheter Urine Culture - Final Presumptive E. coli 11/09/23 09:50 Nasal Secretion SARS-CoV-2 Antigen (Rapid) - Final 11/02/23 16:15 Urine Catheter - Blanco Urine Culture - Final Presumptive E. coli 10/30/23 05:20 Urine, Catheterized Urine Culture - Final Culture exhibits no growth. Physical Exam Const alert General Appearance: cooperative Resp normal respiratory effort, normal air movement and clear to auscultation bilaterally Effort and Inspection: Negative for tachypneic or labored Cardio regular rate and regular rhythm GI normal to inspection, nondistended, normoactive bowel sounds, non-tender and non-distended Extremity normal capillary refill General Extremity: Negative for edema Skin no rashes or lesions noted General Skin Exam: no breakdown Rashes: no rashes Psych affect normal Appearance: appropriate Assessment & Plan Assessment/Plan (1) Debility: (2) Right hemiparesis: (3) Aphasia: (4) Acute stroke due to ischemia: PLAN: Cryptogenic........will need an event monitor at [place] to look for PAF. (5) Benign essential hypertension: (6) Meningioma: (7) Stage 3 chronic kidney disease: QUALIFIERS: Chronic kidney disease stage 3 subtype: stage 3a (GFR 45-59) Qualified Code(s): N18.31 - Chronic kidney disease, stage 3a (8) Recurrent bacterial cystitis: PLAN: Plan 1. Continue therapy 2. DC ciprofloxacin and start Keflex 500 mg p.o. 3 times daily for 24 doses to complete 10 days of treatment for recurrent UTI. Recheck a UA 3-4 days after the conclusion of the Keflex dosing. 3. Plan DC on 07/20/23 to the sleep lab for a sleep study. Will repeat the overnight trending pulse ox on the night of 11/17/2023. 4. she would like to follow up with Dr. Ladd for cardiology. I will order an event monitor at [place] and she can see Dr. Ladd for her yearly exam after the monitor comes off so that he can review the results of the monitor at her visit. 5. Recheck a BMP in the AM. Charges/Coding Visit Charges Inpatient E&M: 71444 Subs Hosp L2
[2023-11-16] MEDS: Cephalexin 500 MG Capsule PO ×2 (12:05→20:55)
[2023-11-16 12:48] VITALS: BMI 35.2
--- NOTE | 2023-11-16 12:57 | CASEMGMT ---
Social Work IDT met with patient and for Team meeting. Discussed patient's progress in PT/OT/ST/SN. Confirmed Medicare's DC date for 11/19. However, pt is scheduled for a sleept study 11/19, and will DC home technically 11/20. An overnight trending pulse ox will be completed 11/17 and SW to coordinate O2 needs, if warranted. and pt agreed therapy training went well and both ready for DC home. IDT recommending outpatient PT/OT/ST. Pt is agreeable to [facility]. Pt requesting new FWW. SW to coordinate. transport. SW faxed referral to [facility]. Referral sent to [facility] via [facility]. Plan: DC home with 11/19, [facility] PT/OT/ST TREVOR Ayala
[2023-11-16 18:00] VITALS: BP 123/66; PULSE 57; RESP 16; TEMP 37.1; O2SAT 96
[2023-11-17] MEDS: Levothyroxine 100 MCG Tablet PO (05:48)
[2023-11-17] MEDS: Enoxaparin 40 MG/0.4 ML Syringe SC (05:48)
[2023-11-17 05:54] VITALS: BP 121/62; PULSE 59; RESP 17; TEMP 36.8; O2SAT 97
[2023-11-17 06:38] LABS: Anion Gap 6 (5-15); BUN 10 mg/dL (7-18); BUN/Creat Ratio 9.1 RATIO (10-20); Calcium,Total 9.1 mg/dL (8.5-10.1); Chloride 105 mmol/L (98-107); EST Glomerular Filtration Rate 52 mL/min (>60); Est Glom Filt Rate - Afr Amer 63 mL/min (>60); Estimated Creatinine Clearance 52.03 ml/min; Glucose 93 mg/dL (74-106); Potassium 4.2 mmol/L (3.5-5.1); Sodium Level 138 mmol/L (136-145)
[2023-11-17] MEDS: Aspirin E.C. 81 MG Tablet PO (07:52)
[2023-11-17] MEDS: Calcium Carbonate 500 MG Tablet PO ×2 (07:52→21:17)
[2023-11-17] MEDS: amLODIPine 5 MG Tablet PO (07:52)
[2023-11-17] MEDS: Cholecalciferol (VIT D3) 25 MCG TABLET (1,000 UNITS) 50 MCG PO (07:52)
[2023-11-17] MEDS: Nystatin Powder 15gm Bottle 1 APPLIC TOPICAL (07:52)
[2023-11-17] MEDS: Cephalexin 500 MG Capsule PO ×2 (07:52→21:17)
[2023-11-17] MEDS: Arthritis Pain Compound 60 CLICK TUBE TOPICAL ×2 (07:53→21:17)
[2023-11-17] MEDS: Menthol/Lanolin/Calamine/Znox 113 GM Tube 1 APPLIC TOPICAL (07:53)
[2023-11-17 10:14] VITALS: BMI 35.2
--- NOTE | 2023-11-17 15:02 | PCM.PROGNOTE ---
Subjective Subjective Afebrile VSS -blood pressure is well-controlled. Maintaining appropriate oxygen saturation on RA Oral intake - FOOD good FLUIDS good Discussed with nursing - no problems that need addressed Reviewed the THERAPY notes - she was made ALFREDA in her room today Medication list reviewed. All lab drawn this morning was personally reviewed. Sodium is 138 and potassium is stable at 4.2. The BUN is down to 10 and the creatinine is down to 1.1 from 1.24 on 11/09/2023 due to better hydration. Leonora denies lightheadedness, vertigo, CP, SOB at rest, SOB with exertion, cough, nausea, vomiting, abd pain, diarrhea, constipation, dysuria, calf pain and ankle swelling. She told me today that she had been taking Levothyroid 100 mcg daily M-F and 112 mcg daily on Sat and Sun. Will change the order in the computer. Objective Data Objective Data Vital Signs: Vital Signs Temp Pulse Resp BP Pulse Ox O2 Del Method O2 Flow Rate 98.2 F 59 L 17 121/62 H 97 Room Air 2 11/17/23 05:54 11/17/23 05:54 11/17/23 05:54 11/17/23 05:54 11/17/23 05:54 11/17/23 05:54 11/13/23 22:20 FiO2 21 11/02/23 21:30 Oxygen Flow Rate (L/min) 2 Oxygen Delivery Method Room Air Weight: 206 lb 5.643 oz Body Mass Index (BMI) 35.2 Intake & Output: Intake and Output for Last 24 Hours 11/15/23 11/16/23 11/17/23 23:59 23:59 23:59 Intake Total 1250 / 1250 1600 / 1600 1330 / 1330 Output Total 1500 / 1500 2300 / 2300 1050 / 1050 Balance -250 / -250 -700 / -700 280 / 280 Lab / Micro Data 11/09/23 05:15 11/17/23 05:07 Labs: Laboratory Results - last 24 hr 11/17/23 05:07: Sodium 138, Potassium 4.2, Chloride 105, Carbon Dioxide 27.0, Anion Gap 6, BUN 10, Creatinine 1.10 H, Estim Creat Clear Calc 52.03, Est GFR (MDRD) Af Amer 63, Est GFR (MDRD) Non-Af 52 L, BUN/Creatinine Ratio 9.1 L, Glucose 93, Calcium 9.1 Micro: Microbiology 11/14/23 08:50 Urine Catheter - Catheter Urine Culture - Final Presumptive E. coli 11/09/23 09:50 Nasal Secretion SARS-CoV-2 Antigen (Rapid) - Final 11/02/23 16:15 Urine Catheter - Blanco Urine Culture - Final Presumptive E. coli 10/30/23 05:20 Urine, Catheterized Urine Culture - Final Culture exhibits no growth. Physical Exam Const alert and oriented x3 General Appearance: cooperative HEENT moist oral mucous membranes Resp normal respiratory effort and clear to auscultation bilaterally Cardio regular rate and regular rhythm Cardio Narrative: No ectopy GI normal to inspection, nondistended, normoactive bowel sounds, soft to palpation and non-tender Extremity no calf tenderness General Extremity: Negative for edema Skin General Skin Exam: no breakdown Rashes: no rashes Wounds: Negative for wounds noted Psych cooperative and affect normal Psych Narrative: sleeping well at night. Not anxious and is not feeling depressed. Assessment & Plan Assessment/Plan (1) Debility: (2) Right hemiparesis: (3) Aphasia: (4) Acute stroke due to ischemia: PLAN: Cryptogenic........will need an event monitor at [place] to look for PAF. (5) Benign essential hypertension: (6) Meningioma: (7) Stage 3 chronic kidney disease: QUALIFIERS: Chronic kidney disease stage 3 subtype: stage 3a (GFR 45-59) Qualified Code(s): N18.31 - Chronic kidney disease, stage 3a (8) Recurrent bacterial cystitis: PLAN: Secondary to pansensitive E. coli. PLAN: Plan 1. Continue therapy 2. Change the levothyroxine dosing to 100 mcg daily Thursday through Thursday and 112 mcg daily Thursday and Thursday. 3. Continue Keflex-plan on 10 full days of treatment for recurrent E. coli cystitis Charges/Coding Visit Charges Inpatient E&M: 44908 [facility] Hosp L1
[2023-11-17 17:47] VITALS: BP 118/70; PULSE 66; RESP 16; TEMP 37.4; O2SAT 97
[2023-11-17 22:05] VITALS: PULSE 66; O2SAT 98
[2023-11-18] MEDS: Levothyroxine 100 MCG Tablet PO (05:07)
[2023-11-18] MEDS: Enoxaparin 40 MG/0.4 ML Syringe SC (05:07)
[2023-11-18 06:00] VITALS: BP 134/66; PULSE 62; RESP 16; TEMP 36.5; O2SAT 97; BMI 35.2
[2023-11-18] MEDS: Aspirin E.C. 81 MG Tablet PO (08:56)
[2023-11-18] MEDS: Arthritis Pain Compound 60 CLICK TUBE TOPICAL ×2 (08:56→21:05)
[2023-11-18] MEDS: Menthol/Lanolin/Calamine/Znox 113 GM Tube 1 APPLIC TOPICAL ×2 (08:58→21:07)
[2023-11-18] MEDS: Nystatin Powder 15gm Bottle 1 APPLIC TOPICAL ×2 (08:59→21:06)
[2023-11-18] MEDS: amLODIPine 5 MG Tablet PO (09:00)
[2023-11-18] MEDS: Calcium Carbonate 500 MG Tablet PO ×2 (09:00→21:05)
[2023-11-18] MEDS: Cholecalciferol (VIT D3) 25 MCG TABLET (1,000 UNITS) 50 MCG PO (09:00)
[2023-11-18] MEDS: Cephalexin 500 MG Capsule PO ×2 (09:00→21:05)
[2023-11-18 17:00] VITALS: BMI 35.2
[2023-11-18 18:00] VITALS: BP 124/68; PULSE 57; RESP 16; TEMP 36.4; O2SAT 96
[2023-11-18 23:48] VITALS: BMI 35.2
[2023-11-19] MEDS: Levothyroxine 100 MCG Tablet PO (05:13)
[2023-11-19] MEDS: Enoxaparin 40 MG/0.4 ML Syringe SC (05:13)
[2023-11-19 06:00] VITALS: BP 105/52; PULSE 55; RESP 17; TEMP 36.4; O2SAT 96
[2023-11-19] MEDS: Senna/Docusate Sodium 1 Tablet 2 TABLET PO (08:01)
[2023-11-19] MEDS: amLODIPine 5 MG Tablet PO (08:02)
[2023-11-19] MEDS: Calcium Carbonate 500 MG Tablet PO (08:02)
[2023-11-19] MEDS: Aspirin E.C. 81 MG Tablet PO (08:02)
[2023-11-19] MEDS: Menthol/Lanolin/Calamine/Znox 113 GM Tube 1 APPLIC TOPICAL (08:02)
[2023-11-19] MEDS: Cholecalciferol (VIT D3) 25 MCG TABLET (1,000 UNITS) 50 MCG PO (08:02)
[2023-11-19] MEDS: Cephalexin 500 MG Capsule PO (08:02)
[2023-11-19] MEDS: Arthritis Pain Compound 60 CLICK TUBE TOPICAL (08:02)
[2023-11-19] MEDS: Nystatin Powder 15gm Bottle 1 APPLIC TOPICAL (08:03)
[2023-11-19] MEDS: Acetaminophen 325 MG Tablet 650 MG PO (08:05)
--- NOTE | 2023-11-19 09:52 | DCINST_ITS ---
Discharge Instructions Diet Discharge Diet: - (Low fat and low salt. 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 ) and - (I recommend you use a cane to ambulate when you are outside of your home to help maintain balance. ) May resume sexual activity in: No Restrictions Weight Bearing Status: Full weight bearing Keep extremity elevated above heart level: Legs (when seated in a chair for a prolonged period of time. ) Dressing / Incision Call your doctor if you observe: Fever of 101 or Higher, Inability to urinate, Shortness of breath, Dizziness, Fainting spells, Swelling in the ankles, Chest pain, Increased palpitations (irregular heartbeat), Calf discomfort and - (STROKE symptoms: facial droop, slurred speech, inability to get words out, weakness on 1 side of the body and not the other, numbness on 1 side of the body and not the other, inability to maintain your balance sitting or standing, vertigo. ) Follow Up Care When: You have follow up appts scheduled with Dr. Bishop for neurology F/U, Dr. Ladd for cardiology and Dr. Dunaway for primary care. Following the sleep study you will also follow up with pulmonary medicine to review the results of the sleep study and talk about treatment of sleep apnea if indicated. Test Results: Test results from this visit will be discussed in further detail at your follow- up appointment, if applicable. Pending Tests Upon Discharge: none Discharge Plan Admission Admit Date/Time: 10/29/23 15:15 Primary Reason for Your Visit: Post stroke debility Attending Provider: Cheryle Lozano Primary Care Provider: Joseph Dunaway Instructions Patient Instructions: Stroke Brain Body Effects, Coronavirus Disease 2019 (COVID-19): Overview, Understanding Body Mass Index (BMI), Discharge Instructions for Stroke, Infection Preventing Spread, Risk Factors for Stroke, AFib Additional Instructions / Restrictions: 1. You have tested + for COVID. This means we had to cancel the sleep study. It has been rescheduled after you recover. I am giving you a prescription for an antiviral medication called Paxlovid. This medication deceases the risk of progression to severe COVID and is indicated for mild to moderate disease in patients at risk for progression to severe disease. Because of the recent stroke and your age I feel you should take this medication. you will take this medication twice a day for 5 days. You will be taking 3 tabs twice a day. The most common side effects are a bad taste in the mouth and diarrhea. You will need to quarantine yourself in your house for the next 5 days. After 5 days you can leave your house but, you should wear a mask for 5 additional days to prevent spreading the virus to other people. 2. You had a stroke. We do not know why you had a stroke. One of the things that can cause strokes is a problem with the rhythm of the heart called atrial fibrillation or AFIB. We are ordering a heart monitor at discharge that will record your heart rhythm continuously for the time you wear it. It will be sent to you in the mail. You can either mail it back to the hospital when it is finished or return it to the hospital at the registration desk on the first floor of the hospital. I am giving you some literature to read after you leave the hospital on AFIB and strokes. 3. 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 It is run by an occupational therapist and they do a thorough assessment of your ability to drive and then make recommendations. Until you attend this program you are not allowed to drive. 4. In order to prevent additional strokes going forward there are some goals you need to keep in mind. Your BP should be under 130/80 and it is well controlled now. The LDL, bad cholesterol, should be <70 and your LDL is 69 which is good. The HGBA1C (a test for diabetes) should be less than 7 if you are diabetic. Your HGBA1C is normal and you are not diabetic. Other things you can do to help prevent strokes is get some regular exercise, eat a low fat diet, do not take up smoking and try and keep the BMI at 30 or less. Your BMI is currently 35. To get your BMI below 30 you should aim for getting your weight down to 170. If this is not possible than focus on not gaining any weight. Losing even 10 lbs can help with BP control. 5. You have made excellent progress in rehab but, will need to continue with therapy as an OP. [facility] is a great facility and They do good work in therapy there. They will tell you when they think it is safe for you to walk without a cane. 6. 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 These are benign but, they can not be ignored because they can enlarge and put pressure on the brain and cause neurologic problems. This MUST be followed with CT scans and your doctor may want you to see a neurosurgeon. Sometimes if they are causing neurologic problems they need to be surgically removed. 7. You have worked hard in therapy and we have all appreciated your good attitude and willingness to do whatever the therapists ask of you. If you or Stephen have any questions after you leave rehab please do not hesitate to call me. OFFICE: [phone] CELL: [phone] Discharge Orders/Prescriptions Prescriptions: New atorvastatin 40 mg Tablet 40 mg PO QHS Qty: 30 0RF Rx Instructions: This medication helps to prevent strokes. It is for cholesterol. amlodipine 5 mg Tablet 5 mg PO DAILY Qty: 30 0RF Rx Instructions: You take this medication for high BP. cephalexin 500 mg Capsule 500 mg PO Q12 Qty: 9 0RF Paxlovid 300 mg (150 mg x 2)-100 mg tablets,dose pack See Rx Instructions .ROUTE .COMPLEX Qty: 30 0RF Rx Instructions: take TWO 150 mg tablets of nirmatrelvir with ONE 100 mg tablet of ritonavir twice daily for 5 days Continued cholecalciferol (vitamin D3) 2,000 unit capsule 2,000 unit PO QDAY calcium carbonate 600 mg calcium (1,500 mg) tablet 600 mg PO BID aspirin 81 mg Tablet,Delayed Release (Dr/Ec) 81 mg PO DAILYCM Qty: 1 0RF levothyroxine 100 mcg Tablet 100 mcg PO [id number] Qty: 0 0RF acetaminophen 325 mg tablet 650 mg PO Q6H PRN (Reason: pain) Qty: 1 0RF Changed levothyroxine 112 mcg Tablet 112 mcg PO .SA,RAMESH Qty: 8 0RF Rx Instructions: 112 mcg orally on Thursday and Thursday Discontinued atorvastatin 80 mg Tablet 80 mg PO QHS Qty: 0 0RF No Action heparin (porcine) 5,000 unit/mL Solution 5,000 unit subcut Q12 Qty: 25 0RF Other Ambulatory Orders: 30 Day Event Recorder Preventi (Routine) Timeframe: 1 Day Facility: [facility] - Location: [facility] Ordered By: Dr. Cheryle Lozano Referrals / Follow Up: Benja Bishop-Neurology [Other] - 12/28/23 3:20 pm Lab, Sleep [Other] (Sleep lab on 4th floor. Push call button in waiting room to call for assistance. Arrive between 7:30-8pm Contact for any changes [phone]. option 1) Devonte Ladd MD [Med Staff - Active Staff] - 01/18/24 11:00 pm Joseph Dunaway MD [Primary Care Provider] - 12/21/23 3:00 pm Disposition Disposition (needs filled in before D/C Order can be placed): Home, Self Care
[2023-11-19 10:24] VITALS: BMI 35.2
--- NOTE | 2023-11-19 10:55 | EX.DISCHREH ---
Providers Date of Admission: 10/29/23 Date of Discharge: 11/19/23 Primary Care Physician: Dr. Joseph Dunaway MD Reason For Visit: LEFT PARIETAL ISCHEMIC CVA Diagnosis Discharge Diagnosis (1) Debility: Status: Acute Code(s): R53.81 - Other malaise (2) Acute stroke due to ischemia: Status: Acute Code(s): I63.9 - Cerebral infarction, unspecified Plan: Cryptogenic........will need an event monitor at DC to look for PAF. She received TNK. MRI showed a stroke in the left parietal lobe with chronic involutional changes. 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 She has chronic involutional changes on the CT head. She has been referred to neurology. (6) Urine retention: Status: Resolved Code(s): R33.9 - Retention of urine, unspecified Plan: Possibly due to stroke. This resolved while she was on rehab. (7) Recurrent bacterial cystitis: Status: Acute Code(s): N30.90 - Cystitis, unspecified without hematuria Plan: She had a UTI secondary to pansensitive E. coli likely related to urine retention at admission to rehab and presence of a Blanco. She was treated with 7 days of appropriate antibiotics. The UTI recurred later in the admission and once again was due to a carlisle-sensitive E. Coli. She will complete a 10 day course of Keflex. (8) COVID-19: Status: Acute Code(s): U07.1 - COVID-19 Plan: Tested + on the day of DC from rehab. Was given a RX for Paxlovid. (9) Meningioma: Status: Chronic Code(s): D32.9 - Benign neoplasm of meninges, unspecified Plan: This is a new incidental finding on CT head done for stroke. The meningioma measures 3.5 cm x 1.6 cm x 2.6 cm and is located along the left frontal convexity. THIS WILL NEED TO BE FOLLOWED UP AN OP. (10) Dyslipidemia: Status: Chronic Code(s): E78.5 - Hyperlipidemia, unspecified Plan: LDL was 69 at admission to the hospital and she was not on a lipid lowering agent. She was started on a high intensity statin to decrease the risk for additional strokes going forward. Will need a Lipid panel and a liver panel in the next couple weeks post DC. HDL is great at 73. (11) Essential (primary) hypertension: Status: Chronic Code(s): I10 - Essential (primary) hypertension Plan: Well controlled with Amlodipine 5 mg daily at DC from rehab. She did not tolerate Beta shay due to moderate bradycardia. (12) Pulmonary hypertension: Status: Chronic Code(s): I27.20 - Pulmonary hypertension, unspecified Plan: PA systolic estimated at 35 on TTE. Etiology? Undiagnosed sleep apnea? she had an abnormal overnight trending pulse ox while on rehab. (13) Obesity (BMI 30-39.9): Status: Chronic Code(s): E66.9 - Obesity, unspecified Plan: Recommended she try and get her BMI less than 30. 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 (15) Stage 2 chronic kidney disease: Status: Chronic Code(s): N18.2 - Chronic kidney disease, stage 2 (mild) Plan 1. Dc home with OP PT/OT/ST at [facility]. 2. RX for Paxlovid given. She is to quarantine in her house for 5 days and then can leave the house with a mask if necessary for the next 5 days. 3. Sleep study has been rescheduled for a later date. 4. Follow up scheduled with PCP, cardiology and neurology. 5. Recheck a lipid panel and liver panel in the next few weeks. 6. Event monitor prescribed at discharge and then will follow-up with Dr. Ladd 7. Recommended follow up with neurosurgery. I recommended Dr. Ware at [facility]. She will likely need a referral from Dr. Dunaway. The meningioma is large enough that it may be contributing to some brain dysfunction. Medications at Discharge Home Medications cholecalciferol (vitamin D3) 50 mcg (2,000 unit) capsule 2,000 unit PO QDAY health maintenance 07/27/17 calcium carbonate 600 mg PO BID health maintenance 08/05/21 acetaminophen 325 mg tablet 650 mg (2 x 325 mg) PO Q6H PRN pain #1 TAB 10/29/23 aspirin 81 mg tablet,delayed release 81 mg PO DAILYCM heart health #1 TAB 10/29/23 heparin (porcine) 5,000 unit/mL injection solution 5,000 unit subcut Q12 blood thinner #25 mL 10/29/23 levothyroxine 100 mcg tablet 100 mcg PO [id number] thyroid #0 tabs 10/29/23 amlodipine 5 mg tablet 5 mg PO DAILY #30 tabs 11/19/23 atorvastatin 40 mg tablet 40 mg PO QHS #30 tabs 11/19/23 cephalexin 500 mg capsule 500 mg PO Q12 #9 caps 11/19/23 levothyroxine 112 mcg tablet 112 mcg PO .SA,RAMESH thyroid #8 tabs 11/19/23 nirmatrelvir 300 mg (150 mg x2)-ritonavir 100 mg tablet,dose pack (Paxlovid) See Rx Instructions PO .COMPLEX #30 tabs 11/19/23 Hospital Course Operations None Procedures 2-D Echocardiogram (Interpretation Summary The estimated ejection fraction is 65 %. No evidence for diastolic dysfunction. Trivial mitral valve insufficiency. Trivial aortic valve insufficiency. PA systolic estimated at 35 which is consistent with mild pulmonary hypertension. ) Summary of Care Provided Minutes Spent on Discharge: 45 Hospital Course: CRISTY MCRAE, is a 73 YO F with a PMH Hypertension, hypothyroidism, nonrheumatic mild mitral valve insufficiency, tricuspid insufficiency and aortic valve insufficiency, obesity and pulmonary hypertension who presented to the ED at [facility] on 10/28/23 with aphasia and R side weakness. Stat non contrast CT brain showed no acute intracranial abnormality. There was a 3.5 cm by 1.6 cm by 2.6 cm meningioma along the left frontal convexity. CTA of the head and neck showed no large vessel occlusion or significant intracranial vascular abnormality. MRI of the brain showed involutional changes and a subacute infarct in the parafalcine left parietal lobe. Lab showed an elevated BUN of 19 with a creatinine of 1.27 and an estimated GFR of 44 which is consistent with stage 3 chronic renal failure. Tele-neurology was consulted and she was deemed not a candidate 4 TNK because the last known well could not be determined. The neurologist recommended aspirin and admission to the hospital. She was admitted to the hospitalist service and started on ASA and a high intensity statin. TTE showed a normal EF with no evidence of diastolic dysfunction. She had trivial MR and TR and she is known to have non-rheumatic aortic valve insufficiency as well. She was injected with agitated saline to assess for right to left interatrial shunt but the results are not documented on the report. ?The pulmonary systolic pressure was estimated at 35 which is mildly increased.? Hemoglobin A1C was 5.2 and triglycerides were normal at 79. The LDL was 69 with an HDL of 73 and she was not on a lipid lowering agent.? TSH was normal at 1.11.? While in the hospital she was seen by PT/OT/ST and acute inpatient rehab was recommended at discharge. She was transferred to the acute inpatient rehab unit at [facility] on 10/29/23 for three hours of therapy daily to restore function/independence at or near her level prior to the stroke. BP's were persistently elevated after a few days on rehab and she was started on Lopressor 12.5 mg p.o. twice daily. She has significant bradycardia, especially while sleeping, and Lopressor was discontinued and she was started on amlodipine 2.5 mg daily which she tolerated well. Blood pressure was still mildly elevated and amlodipine was increased to 5 mg daily. Her blood pressure is under good control at the time of discharge from rehab. She was retaining urine at presentation to rehab and a Blanco catheter was inserted. UA at the time of insertion showed. Greater than 100 RBCs per high-power field and 50-100 WBCs. There was 4+ bacteria. She was started on Bactrim DS and a urine culture was ordered. Urine culture grew a pansensitive E. coli. She received 7 days of antibiotics. She later passed a voiding trial following removal of the Blanco. Later in the course of her admission on rehab she complained of burning with urination and a another UA was done on 11/14/2023 and showed greater than 100 RBCs per high-power field and 50-100 WBCs. There was no bacteria but the urine culture once again grew a pansensitive E. coli. She had 2 days of Levaquin initially until the culture returned and then was transition to Keflex 500 mg twice daily. She will receive a total of 10 days of antibiotics. she had an overnight trending pulse ox on rehab and it was abnormal. She was scheduled for a formal sleep study at [facility] from rehab on 11/19/23 however, she complained of a sore throat and chills prior to DC and a rapid COVID AG was + so the sleep study was rescheduled for a later date. Because of the recent stroke and the persistent cognitive dysfunction she was given a RX for Paxlovid at [facility]. Cristy did well on rehab and had significant improvement. Prior to DC she is able to ascend/descend two 6 inch steps and three 4 inch steps with 1 handrail at contact-guard assist. She is able to negotiate a curb step with a straight cane at contact-guard assist. She is able to do 12 sit to stands using her upper extremities to push up in 30 seconds. She has ambulated on various surfaces for 350 feet with a straight cane at supervision. She [place] [facility] [place] front wheeled walker. She is supervision/set up for eating and she is modified independent for grooming, bathing, upper body dressing, lower body dressing, toileting and toilet transfer. She is supervision/set up for tub/shower transfer for safety for the first 1 to 2 weeks at home. She is on regular textures and thin liquids with small sips and small bites. She has fluent speech when conversing with her but, there is still some cognitive dysfunction. She will be going to [facility] as an OP for continued PT/OT/ST. Appts were made for her to follow up with Dr. Dunaway, Dr. Ladd from cardiology and Dr. Bishop from neurology. I recommended she follow up with a neurosurgeon for the meningioma and suggested Dr. Ware at [facility]. she will discuss this with Dr. Dunaway. She will need to have asleep study because she had a abnormal overnight trending pulse ox, her STOP-BANG score is 5 which puts her at high risk for obstructive sleep apnea and she has mild pulmonary hypertension. The sleep lab has rescheduled her for a few weeks from now after she has recovered from COVID. Because the stroke is considered cryptogenic a 30 day event monitor was ordered at [facility] from rehab to look for PAF, jorden since I suspect she may have EVA. Physical Exam Const alert, oriented x3 and no apparent distress Constitutional Narrative: Feeling ill today. Tested + for COVID. Having sweats and chills and sore throat. General Appearance: cooperative and well kempt HEENT hearing grossly normal bilaterally and moist oral mucous membranes Eyes PERRL, EOMs intact bilaterally, conjunctivae normal and no scleral icterus Eyes Narrative: No discharge from the eyes. General Eye: normal appearance of both eyes Neck supple, no JVD, No nodes and no carotid bruits Chest Chest: symmetrical chest wall rise Resp normal respiratory effort, normal air movement, no retractions, no use of accessory muscles and clear to auscultation bilaterally Resp Narrative: Occasional cough Effort and Inspection: able to speak in complete sentences Cardio regular rate, regular rhythm, S1 normal heart sound, S2 normal heart sound, no rub and no gallops Cardio Narrative: No ectopy. there is a soft systolic MM at the LLSB and the LVOT. GI normal to inspection, nondistended, normoactive bowel sounds, soft to palpation and non-tender GI Narrative: No guarding with palpation. No abdominal bruits. Narrative: Urine retention has resolved and so has hematuria. Extremity no calf tenderness and no pedal edema Skin no rashes or lesions noted, no jaundice and no petechiae General Skin Exam: no breakdown Neuro oriented x3, moves all extremities and no sensory deficits noted Neuro Narrative: The right leg is weaker than the left but she is able to hold it off the bed for 5 seconds with no drift. Facial droop is barely noticeable now. No ataxia. No extinction. No visual field cuts. Thought processing has improved significantly and to my ear she has no dysarthria. Speech was fluent when I spoke to her on the day of discharge with no trouble with word finding. Psych cooperative, affect normal, activity/motor behavior normal, denies homicidal ideation and denies suicidal ideation Appearance: grossly normal, appropriate and well kempt Attitude: calm Activity / Motor Behavior: appropriate eye contact Speech: normal speech Weight / BMI Weight Weight: 206 lb 3.2 oz Body Mass Index (BMI) 35.2 ABG / Lab / Microbiology Data 11/09/23 05:15 11/17/23 05:07 Microbiology: Microbiology 11/19/23 09:25 Nasal Secretion SARS-CoV-2 Antigen (Rapid) - Final SARS-CoV-2 (COVID 19) 11/14/23 08:50 Urine Catheter - Catheter Urine Culture - Final Presumptive E. coli 11/09/23 09:50 Nasal Secretion SARS-CoV-2 Antigen (Rapid) - Final 11/02/23 16:15 Urine Catheter - Blanco Urine Culture - Final Presumptive E. coli 10/30/23 05:20 Urine, Catheterized Urine Culture - Final Culture exhibits no growth. Indicators for Scoring Admitted with or Primary Diagnosis of CVA/Stroke: Yes Hx of CVA/Stroke: Yes Modified Daniel Score MRS Score at time of Evaluation: 2-Slight disability (Down from a 4 at admission to rehab.) NIHSS NIHSS 1a. Level of Consciousness: Alert; keenly responsive 1b. LOC Questions: Answers BOTH questions correctly. 1c. LOC Commands: Performs both tasks correctly. 2. Best Gaze: Normal 3. Visual: No visual loss 4. Facial Palsy: Minor paralysis (flattened nasolabial fold, asymmetry on smiling) (Less obvious than at admission.) 5a. Left Arm: No drift; arm holds 90 (or 45) degrees for full 10 seconds 5b. Right Arm: No drift; arm holds 90 (or 45) degrees for full 10 seconds 6a. Left Leg: No drift; leg holds 30-degree position for full 5 seconds 6b. Right Leg: No drift; leg holds 30-degree position for full 5 seconds (The right leg is weaker when compared to the left but at admission she had no movement and now she can hold the leg up off the bed for 5 seconds.) 7. Limb Ataxia: Absent 8. Sensory: Normal; no sensory loss 9. Best Language: No aphasia; normal (Speech is fluent at discharge and she did not have trouble with word finding when I was speaking with her but, still having some difficulty with memory with ST and needs to use circumlocution at times ) 10. Dysarthria: Normal 11. Extinction and Inattention: No abnormality Total: 1 Stroke Questions Stroke Team Activated: No D/C Instructions Discharge Diet: - (Low fat and low salt. ) May resume sexual activity in: No Restrictions Weight Bearing Status: Full weight bearing Keep extremity elevated above heart level: Legs (when seated in a chair for a prolonged period of time. ) Call your doctor if you observe: Fever of 101 or Higher, Inability to urinate, Shortness of breath, Dizziness, Fainting spells, Swelling in the ankles, Chest pain, Increased palpitations (irregular heartbeat), Calf discomfort and - (STROKE symptoms: facial droop, slurred speech, inability to get words out, weakness on 1 side of the body and not the other, numbness on 1 side of the body and not the other, inability to maintain your balance sitting or standing, vertigo. ) Pending Tests Upon Discharge: none When: You have follow up appts scheduled with Dr. Bishop for neurology F/U, Dr. Ladd for cardiology and Dr. Dunaway for primary care. Following the sleep study you will also follow up with pulmonary medicine to review the results of the sleep study and talk about treatment of sleep apnea if indicated. Meaningful Use Info Meaningful Use Meaningful Use Diagnoses (Choose all that apply): Ischemic CVA CVA Therapy Assessed for PT,OT and/or ST?: Yes Ischemic Stroke Antithrombotic order at d/c?: Yes Dx of Atrial fib/flutter?: No Anticoagulant at discharge?: No Reason anticoagulant not ordered: Treatment not Indicated Statin Dosing Therapy Reference: STATIN DOSE THERAPY REFERENCE: * Patients > 75 years receive moderate or high dose statin therapy. * Patients 75 years or YOUNGER should receive HIGH intensity statin dose unless contraindicated. You will be required to document reason for non-treatment if statin daily dose does not meet guidelines. HIGH DOSE STATIN THERAPY DAILY Atorvastatin > than or = to 40 mg Rosuvastatin > than or = to 20 mg Amlodipine + Atorvastatin > than or = to 2.5/40 mg Ezetimibe + Simvastatin 10/80 mg Simvastatin 80mg Statins at discharge?: Yes If patient is 75 or younger, pt will be discharged on HIGH intensity statin.: Yes Primary Dx Acute Ischemic CVA?: Yes IV thrombolytic ordered during stay?: No Reason IV thrombolytic not ordered: Procedure not Indicated Discharge Plan Admission Admit Date/Time: 10/29/23 15:15 Primary Reason for Your Visit: Post stroke debility Attending Provider: Cheryle Lozano Primary Care Provider: Joseph Dunaway Instructions Patient Instructions: Stroke Brain Body Effects, Coronavirus Disease 2019 (COVID-19): Overview, Understanding Body Mass Index (BMI), Discharge Instructions for Stroke, Infection Preventing Spread, Risk Factors for Stroke, AFib Additional Instructions / Restrictions: 1. You have tested + for COVID. This means we had to cancel the sleep study. It has been rescheduled after you recover. I am giving you a prescription for an antiviral medication called Paxlovid. This medication deceases the risk of progression to severe COVID and is indicated for mild to moderate disease in patients at risk for progression to severe disease. Because of the recent stroke and your age I feel you should take this medication. you will take this medication twice a day for 5 days. You will be taking 3 tabs twice a day. The most common side effects are a bad taste in the mouth and diarrhea. You will need to quarantine yourself in your house for the next 5 days. After 5 days you can leave your house but, you should wear a mask for 5 additional days to prevent spreading the virus to other people. 2. You had a stroke. We do not know why you had a stroke. One of the things that can cause strokes is a problem with the rhythm of the heart called atrial fibrillation or AFIB. We are ordering a heart monitor at discharge that will record your heart rhythm continuously for the time you wear it. It will be sent to you in the mail. You can either mail it back to the hospital when it is finished or return it to the hospital at the registration desk on the first floor of the hospital. I am giving you some literature to read after you leave the hospital on AFIB and strokes. 3. 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 Because of this and the other problems you are still having due to the stroke I am recommending you attend a equipment driver assessment program in [place] that is located at [facility]. It is run by an occupational therapist and they do a thorough assessment of your ability to drive and then make recommendations. Until you attend this program you are not allowed to drive. 4. In order to prevent additional strokes going forward there are some goals you need to keep in mind. Your BP should be under 130/80 and it is well controlled now. The LDL, bad cholesterol, should be <70 and your LDL is 69 which is good. The HGBA1C (a test for diabetes) should be less than 7 if you are diabetic. Your HGBA1C is normal and you are not diabetic. Other things you can do to help prevent strokes is get some regular exercise, eat a low fat diet, do not take up smoking and try and keep the BMI at 30 or less. Your BMI is currently 35. To get your BMI below 30 you should aim for getting your weight down to 170. If this is not possible than focus on not gaining any weight. Losing even 10 lbs can help with BP control. 5. You have made excellent progress in rehab but, will need to continue with therapy as an OP. [facility] is a great facility and They do good work in therapy there. They will tell you when they think it is safe for you to walk without a cane. 6. 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 These are benign but, they can not be ignored because they can enlarge and put pressure on the brain and cause neurologic problems. This MUST be followed with CT scans and your doctor may want you to see a neurosurgeon. Sometimes if they are causing neurologic problems they need to be surgically removed. 7. You have worked hard in therapy and we have all appreciated your good attitude and willingness to do whatever the therapists ask of you. If you or Stephen have any questions after you leave rehab please do not hesitate to call me. OFFICE: [phone] CELL: [phone] Discharge Orders/Prescriptions Prescriptions: New atorvastatin 40 mg Tablet 40 mg PO QHS Qty: 30 0RF Rx Instructions: This medication helps to prevent strokes. It is for cholesterol. amlodipine 5 mg Tablet 5 mg PO DAILY Qty: 30 0RF Rx Instructions: You take this medication for high BP. cephalexin 500 mg Capsule 500 mg PO Q12 Qty: 9 0RF Paxlovid 300 mg (150 mg x 2)-100 mg tablets,dose pack See Rx Instructions .ROUTE .COMPLEX Qty: 30 0RF Rx Instructions: take TWO 150 mg tablets of nirmatrelvir with ONE 100 mg tablet of ritonavir twice daily for 5 days Continued cholecalciferol (vitamin D3) 2,000 unit capsule 2,000 unit PO QDAY calcium carbonate 600 mg calcium (1,500 mg) tablet 600 mg PO BID aspirin 81 mg Tablet,Delayed Release (Dr/Ec) 81 mg PO DAILYCM Qty: 1 0RF levothyroxine 100 mcg Tablet 100 mcg PO [id number]@0600 Qty: 0 0RF acetaminophen 325 mg tablet 650 mg PO Q6H PRN (Reason: pain) Qty: 1 0RF Changed levothyroxine 112 mcg Tablet 112 mcg PO .SA,RAMESH Qty: 8 0RF Rx Instructions: 112 mcg orally on Thursday and Thursday Discontinued atorvastatin 80 mg Tablet 80 mg PO QHS Qty: 0 0RF No Action heparin (porcine) 5,000 unit/mL Solution 5,000 unit subcut Q12 Qty: 25 0RF Other Ambulatory Orders: 30 Day Event Recorder Preventi (Routine) Timeframe: 1 Day Facility: [facility] - Location: [facility] [place] Ordered By: Dr. Cheryle Lozano Referrals / Follow Up: Benja Bishop-Neurology [Other] - 12/28/23 3:20 pm Lab, Sleep [Other] - 12/03/23 7:30 pm (Sleep lab on 4th floor. Push call button in waiting room to call for assistance. Arrive between 7:30-8pm Contact for any changes [phone]. option 1) Devonte Ladd MD [Med Staff - Active Staff] - 01/18/24 11:00 pm Joseph Dunaway MD [Primary Care Provider] - 12/21/23 3:00 pm Disposition Disposition (needs filled in before D/C Order can be placed): Home, Self Care Charges/Coding Visit Charges Inpatient E&M: 14527 Disch Hosp >30min
== END 2023-11-19 14:40 | disposition home or self-care (01) | DRG 57 ==
PROVIDERS: Family Medicine Geriatric Medicine; Admitting Provider Internal Medicine; PCP Family Medicine; Referring Provider Internal Medicine; Visit Provider Internal Medicine
DX: I69.351 Hemiplegia and hemiparesis following cerebral infarction affecting right dominant side (principal); N30.01 Acute cystitis with hematuria; I27.20 Pulmonary hypertension, unspecified; N18.31 Chronic kidney disease, stage 3a; E06.3 Autoimmune thyroiditis; I08.3 Combined rheumatic disorders of mitral, aortic and tricuspid valves; I12.9 Hypertensive chronic kidney disease with stage 1 through stage 4 chronic kidney disease, or unspecified chronic kidney disease; I69.320 Aphasia following cerebral infarction; E66.9 Obesity, unspecified; D32.9 Benign neoplasm of meninges, unspecified; G47.30 Sleep apnea, unspecified; E78.5 Hyperlipidemia, unspecified; M17.11 Unilateral primary osteoarthritis, right knee; I69.318 Other symptoms and signs involving cognitive functions following cerebral infarction; B96.20 Unspecified Escherichia coli [E. coli] as the cause of diseases classified elsewhere; Z79.890 Hormone replacement therapy; R33.9 Retention of urine, unspecified; Z79.82 Long term (current) use of aspirin; Z86.16 Personal history of COVID-19; Z79.01 Long term (current) use of anticoagulants; Z11.52 Encounter for screening for COVID-19; G47.00 Insomnia, unspecified; Z79.899 Other long term (current) drug therapy; Z68.35 Body mass index [BMI] 35.0-35.9, adult
CPT/HCPCS: 36415; 74018; 80048; 80053; 81001; 82550; 83735; 84100; 85014; 85018; 85025; 85027; 87086; 87088; 87186; 87811; 92507; 92523; 92610; 94668; 94762; 97110; 97112; 97116; 97129; 97130; 97162; 97166; 97530; 97535; 97802; 97803; J7030; A4216

== ENCOUNTER → 2023-12-03 | Outpatient (CLI) | payer MEDICARE, OTHER, SELFPAY | END | disposition home or self-care (01) | LOC: SL 20:05 | PROVIDERS: PCP Family Medicine; Referring Provider Internal Medicine; Visit Provider Internal Medicine | DX: G47.30 Sleep apnea, unspecified (principal) | CPT/HCPCS: 95810 ==

== ENCOUNTER 2023-12-23 10:00 | Outpatient (RCR) | payer MEDICARE, OTHER, SELFPAY ==
--- NOTE | 2023-11-24 18:25 | HP.SP.EVAL ---
Visit History Visit Info Date of Eval: 11/23/23 Visit: 1 Pharmacy Innovation Assistant: MYCHAL History Attending Doctor: Referring Doctor: Reason for Referral: STROKE RX HERE INPATIENT--> OUTPATIENT Previous speech therapy: Yes Results: Leonora is a 73 year old woman who was seen at for a speech and language evaluation s.p. a cva. Pt was treated on rehab and discharged home last . Outpatient therapy for speech was recommended upon discharge to address deficits in memory, attention, and executive functioning Smoking Status: Never smoker Diagnosis Diagnosis: mild cognitive communication impairment Pain Is pain an issue with your current prescribed condition?: No Personal Preferred language: Korean Patient Allergies Allergies Allergies: Allergies adhesive Allergy (Verified 10/28/23 07:03) Hives Objective Cog/Ling/Com Comments Comments: mild impairment noted during listening comprehension tasks at the paragraph level Problem Solving Simple: WFL Complex: Mild Judgement & Reasoning Judgement/Reasoning: Mild Cognitive Linguistic Supervision/Saftey Awareness of deficits: WFL Being left home alone: WFL Managing medications: Mild Managing finances: Mild Executive Function Comments Comments: Pt with complaints of difficulty with completing complex ADLs at home that she was responsible for prior to the cva such as cooking, laundry, medication management, finances. Pt and her would like to work towards returning to pt's PLOF prior to her cva. CLQT CLQT CLQT Administered: Yes CLQT: Cognitive Linguistic Quick Test (CLQT) is a criterion - referenced assessment designed for adults between the ages of 18 and 89 with known or suspected neurological dysfuntions. The CLQT is to assess strength and weaknesses in five cognitive domains. Severity ratings are within normal limits, mild, moderate, severe deficits. The subtests are as follows: Date: 11/24/23 Attention Attention: WNL Memory Memory: WNL Executive Functions Executive Functions: WNL Language Language: WNL Visuospatial Skills Visuospatial Skills: WNL Composite Severity Rating Composite Severity Rating: WNL Clock Drawing Severity Rating Clock Drawing Severity Rating: WNL CLQT Comments Interpretation: -: Although pt scored within normal limits on this assessment, she stated that the tasks she completed during the assessment were more difficult then they would have been for her to complete prior to her cva. Pt is currently unable to complete complete ADLS and she is not at her PLOF. Reference: Neuro-QoL instrument In past 7 days I had to read something several times to understand it: Often (once a day) My thinking was slow: Often (once a day) I had to work really hard to pay attention or i would make a mistake: Often (once a day) I had trouble concentrating: Often (once a day) How much DIFFICULTY do you currently reading & following complex instructions (e.g. directions for new medication: A lot planning for & keeping appts that are not part of weekly routine: Somewhat managing your time to do most of your daily activities: Somewhat learning new tasks or instructions: A lot Neuro-QOL Score Raw Score: 18 T - Score: 33.0 Radiation Oncology Patient Plan Plan Plan: Will recommend Pt for weekly outpatient speech therapy to address a mild cognitive impairment characterized by deficits in immediate and short-term memory, executive functioning, attention, and problem solving/reasoning. Pt would benefit from training in compensatory strategies for recall and word retrieval, as well as cognitive training to improve cognitive functioning. Recommendations Treatment Warranted: Yes Treatment Warranted: Cognition Frequency Frequency: 1x/Week Duration: 4-6 Weeks Goals that are Established Determination:: Goals will be added/modified as deemed necessary and appropriate. Therapy will be discontinued when results of re-evaluation indicate therapy is no longer needed or lack of progress has been documented. Goal #1-5 Goal #1: Pt independently will complete complex problem solving, reasoning, and executive function tasks including but not limited to functional ADL (i.e. managing finances, safety awareness, paying bills, medication management, meal planning, using cellphone) with 90% acc during 3 sessions. Goal #2: When verbally presented with a story passage, Pt will I answer comprehension question with 80% accuracy to increase their listening comprehension during 3 sessions. Education Patient Instruction Patient Education: Diagnosis and Treatment Plan Person Taught: Family and Significant Other Teaching Method: Discussion Response to teaching: Verbalize Understanding
--- NOTE | 2023-11-25 18:17 | HP.PTEVAL ---
Patient's Visit Information Visit Information Visit Information: CRISTY MCRAE is a 73 year old F referred to Physical Therapy by Dr. Cheryle Lozano DO with a diagnosis of CVA with R sided weakness. Date of Evaluation: 11/25/23 Physical Therapist: Sai Gallardo DPT Visit Plan Frequency: 2x /Week Duration: 6 Weeks Plan: Start with CKC BLE strengthening, squatting, step ups, hip abductor strengthening. Add in gait progression and dynamic stability. Progress overall endurance with progressive walking program. Subjective Subjective: Pt. is here today for her initial evaluation with CVA with R sided weakness. Pt. reports having a CVA on October 28 2023. Pt. was going to the bathroom and was unable to get back out. She was until on Inpatient rehab until last week. No visual changes, no N/T. Pt. is currently using a SCP with gait, but has occasionally while in home she will walk without it. Pt. reports being about 60% of her previous injury. Pt. also had COVID after her hospital stay. She likes to garden at home, but has not got back to that yet. Pt. is hopeful to increase her overall strength and get back to all recreational activities without limitations. Pt. does have basement stairs and has to go down to use exercise equipment. Objective Objective: POSTURE: Pt. has slight fwrd head posture. Normal JULEE noted. PALPATION: Normal throughout. NEURO: normal sensation and normal DTR of bLEs. Pt. is able to rise on heels and toes without limitations. Pt. did use balance aide to complete. ROM: Pt. has normal ROM, but did have some tightness in R knee, reports having OA in her R knee for some time. MMT: 5/5 B ankles. R knee: ext 26.1#, flexion 21.1#; hip: flexion 16.9#. L knee: ext 24.5#, flexion 20.9#, hip: flexion 23.6#. GAIT: Pt. ambulates I with SPC without issues. Pt. is able to ambulate out cane with decent with slight increase in lateral sway. STAIRS: step to pattern with descending secondary to R knee pain. Balance/Special Test Scores Lower Extremity Functional Score: 35 TUG Test Time Seconds: 12.3 30 Second Chair Rise Test Seconds: 12 6 Minute Walk Test: 890 feet with out AD Goals Goal 1:: LTG: Pt. to be I with HEP. Goal Time Frame: 4-6 Weeks Goal 2:: LTG: Pt. to have increased BLE strength by 5# throughout. Goal Time Frame: 4-6 Weeks Goal 3:: LTG: Pt. to complete TUG with time under 10 seconds indicating increased stability with functional mobility. Goal Time Frame: 4-6 Weeks Goal 4:: LTG: Pt. to complete 6 min walk test with distance of greater than 1400feet. Goal Time Frame: 4-6 Weeks Goal 5:: LTG: Pt. to complete 30 sec sit to stand rep test with at least 14 reps. Goal Time Frame: 4-6 Weeks Rehabilitation Potential Physical Therapy Diagnosis: Pt. has signs and symptoms consistent with CVA with R sided weakness. Her weakness is all but resolved, but still feels imbalance with her functional mobility. Pt would benefit from PT to address the above limitation progressing back to all recreational and household activities. Rehabilitation Potential: Excellent Anticipated Interventions Patient/Client Instruction: Educate patient on: Condition, Plan of Care, Risk Factors and Benefits of Fitness Program For the Purpose of:: To facilitate caregiver knowledge, To improve self management, To prevent re-injury, To improve ability to perform tasks related to life management and To improve tolerance to ADL's Therapeutic Exercise to Include: Strength training, Power training, Endurance training, Balance training, Postural training and Flexibilty training For the Purpose of:: To increase ROM, To improve nutrient delivery to tissue, To increase oxygenation perfusion, To improve ability to perform ADL's, To increase tolerance to activity/condition/position, To improve gait and locomotor functions, To improve health of tissue, To increase flexibility/ROM, To improve endurance, To improve balance and To improve safety with gait Text: Thank you for the opportunity to evaluate your patient. For Medicare and Medicare HMO plans, please review the plan of care and approve it. It will need to be FAXED BACK to us at [phone] for Medicare purposes. For Medicare only, by signing this I certify the plan of care. Please let me know if there are questions or concerns regarding this plan of care. Physician Signature: Date:
--- NOTE | 2023-12-09 14:57 | HP.OTEVAL ---
Patient's Visit Information Visit Information Visit Information: CRISTY MCRAE is a 73 year old F, referred to Occupational Therapy by Dr. Cheryle Lozano DO, with a diagnosis of stroke. Date of Evaluation: 11/25/23 Occupational Therapist: Pilar Starr, PATEL/Myla, CHT Subjective Subjective: This 73-year-old female arrives with dx of stroke affecting the R side. Stroke occurred 27 of October, stayed inpatient rehab 22 days, and has been home since last 11/18. Pt got covid in inpatient rehab and still recovering. Pt lives with who is able to assist, has stairs into home, stairs to basement. Pt states difficulty with endurance- lasts 10 minutes activity tolerance before feeling fatigued. Pt has shower chair, walk in shower. Able to I dress and self-care. Pt has difficulty with heavy organizational development consultant, cooking, laundry, hobbies including watering plants and using her pool. Pt likes to go in her pool, water nunes, reading, and going to car shows with . Objective Objective/Observation: pt arrives using quad cane as means of mobility. ROM Shoulder: WFL Elbow: WFL Forearm: WFL Wrist: WFL ROM Comments: fingers WFL Strength Shoulder: L 5 R 4+ Elbow: L 5 R 4+ Survey Cad Technician: L 56# R 45# Lateral Pinch: L 16# R 15# Tripod Pinch: L 16# R 12# Sensation Sensation Comments: denies Nine Hole Peg Right: 20.01 sec Left: 19.50 sec Quick DASH-Disab of Arm,Shoulder& Hand Quick DASH Score: 45.4525 Goals Goal:: pt will increase RUE strength equal to or greater than unaffected side to increase I in daily functional tasks. pt to increase R shoulder strength equal to or greater than non-affected side in order to complete daily functional tasks. pt to increase R elbow strength equal to or greater than non-affected side in order to complete daily functional tasks. pt to increase R hand strength by 10# or more in order to complete daily functional tasks. pt to increase R pinch strength by 4# or more in order to complete daily functional tasks. Goal:: pt will report increase I in all ADLs/IADLs by end of POC. Goal:: pt will improve QuickDASH score by 20 points or more to maximize use of RUE. (45.45) Goal:: pt will demo 100% adherence to energy conservation techniques to increase I and safety in daily functional tasks by end of POC. Rehabilitation General Assessment: This 73-year-old female arrives with dx of stroke affecting RUE strength, endurance, and activity tolerance impacting pt ability to do organizational development consultant, cooking, cleaning, and hobbies. pt is recommended to complete OT 1x a week for 4 weeks to address above impairments. Therapy session was directly supervised and doc. approved by Pilar Starr OTR/Myla,CHT. Rehabilitation Potential: Good Anticipated Interventions Anticipated Interventions: A/AAROM/PROM, Strengthening, Joint Protection/Energy Conservation, Ergonomic Education, Fine Motor Coord/El, Neuro Reeducation, ADL Training, Education re assistive Equipment, Education re Diagnosis and Home Program Visit Plan Frequency: 1x/Week Duration: 4 Weeks General Plan: increase strength increase endurance/activity tolerance ed on safety and energy conservation TEXT: Thank you for the opportunity to evaluate your patient. For Medicare and Medicare HMO plans, please review the plan of care and approve it. It will need to be FAXED BACK to us at [phone] for Medicare purposes. Please let me know if there are questions or concerns regarding this plan of care. Physician Signature: Date:
--- NOTE | 2023-12-16 10:50 | HP.SP.DC ---
ST Discharge Summary Discharged: Discharge: Pt was seen for initial speech/language/cognitive evaluation at [facility] on 11/23/23 s/p cva. Pt attended 3 additional sessions following initial evaluation to target divergent naming, problem solving/reasoning, memory, and executive functioning. Following re-evaluation of Pt?s current level of cognitive function and self-report, Pt deemed appropriate for d/c from speech therapy at this time. Pt discharged from speech therapy caseload on this date, 12/16/23. Thank you for allowing me to participate in the care of your Pt. Will reevaluate at Pt?s request following script from physician.
--- NOTE | 2023-12-23 10:28 | HP.PTDCSUM ---
Discharge Summary D/C summary: It has been my pleasure to treat CRISTY MCRAE referred by Dr. Cheryle Lozano DO, with the diagnosis of CVA with R sided weakness for a total of 5 visit(s). Discharge Date: 12/23/23 Please see the following information for a summary of their discharge status. Subjective Subjective: Pt. reports being 70% better overall. Pt. reports still having some issues with confidence. Pain R knee: Pain Intensity (Out of 10): 0 Overall Improvement % Improvement: 70 Objective Objective/Function: TU.7sec MMT: RLE: knee ext 43.1#, flexion 29.9# LLE: ext 39.8#, flexion 29.5# TU.7 sec noAD 6 MWT: 1371 GAIT: normal no AD. STAIRS: Pt. able to negotiate 1 flight with 1 HR without issues. Cristy is overall doing well. She is close to or met all of her goals. Pt. educated to continue with her strengthening and walking progression at home. Pt. desires to continue on her own at this point in time. Pt. will be DC from PT to HEP today. Goals Goal 1:: LTG: Pt. to be I with HEP. Goal Progress: Progressing Goal 2:: LTG: Pt. to have increased BLE strength by 5# throughout. Goal Progress: Progressing Goal 3:: LTG: Pt. to complete TUG with time under 10 seconds indicating increased stability with functional mobility. Goal Progress: Goal Met Goal 4:: LTG: Pt. to complete 6 min walk test with distance of greater than 1400feet. Goal Progress: Progressing Goal 5:: LTG: Pt. to complete 30 sec sit to stand rep test with at least 14 reps. Goal Progress: Progressing Plan Plan: Pt. to be DC from PT at this point in time. D/C Information d/c sentence: If there are questions or concerns regarding this patient's physical therapy, please feel free to call me at [phone]. Thank you for the referral of this patient. Sincerely, Sai Rashidos, DPT Balance/Gait/Functional tests Balance/Special Test Scores Lower Extremity Functional Score: 59 TUG Test Time Seconds: 7.7 Tug Test: <10 sec.=free mobile 30 Second Chair Rise Test Seconds: 13 6 Minute Walk Test: 1371feet with out AD, slight LE fatigue noted. Improvement % Improvement: 70
--- NOTE | 2023-12-29 14:36 | HP.OTDCSUM ---
Discharge Summary D/C Summary: It has been my pleasure to treat CRISTY MCRAE under orders from Dr. Cheryle Lozano DO, for the diagnosis of stroke for a total of 5 visit(s). Please see the following information for a summary of their discharge status. 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 Pt states she feels she can perform 70% of tasks she needs to do. pt agrees she will cont. with her HEP. Goals Patient Goals: Regain Strength, Use Hand/Wrist/Arm Normally Again, Be More Independent in ADLS, Resume Former Household Responsibilities (Cooking,Cleaning,Yard, etc.) and Resume Hobbies Goal:: pt will increase RUE strength equal to or greater than unaffected side to increase I in daily functional tasks. (goal met) pt to increase R shoulder strength equal to or greater than non-affected side in order to complete daily functional tasks. (goal met) pt to increase R elbow strength equal to or greater than non-affected side in order to complete daily functional tasks. (goal met) pt to increase R hand strength by 10# or more in order to complete daily functional tasks. (goal met) pt to increase R pinch strength by 4# or more in order to complete daily functional tasks. (goal met) Goal:: pt will report increase I in all ADLs/IADLs by end of POC. (goal met) Goal:: pt will improve QuickDASH score by 20 points or more to maximize use of RUE. (45.45) Goal:: pt will demo 100% adherence to energy conservation techniques to increase I and safety in daily functional tasks by end of POC. (goal met) Plan Plan: pt discharged at this time as pt has met OT goals. pt agrees with D.c. D/C Information Discharge Comments: pt ready to be discharged at this time. pt has tolerated therapy well and made significant gains with strength and confidence with performance of ADLs and IADLs. pt to continue HEP and agrees to POC. d/c sentence: If there are questions or concerns regarding this patient's occupational therapy, please fell free to call me at [phone]. Thank you for the referral of this patient. Sincerely, Pilar Starr, OTR/L, CHT
== END 2023-12-23 19:00 | disposition home or self-care (01) ==
LOC: PT 10:00
PROVIDERS: PCP Family Medicine; Referring Provider Internal Medicine; Visit Provider Internal Medicine
DX: I69.351 Hemiplegia and hemiparesis following cerebral infarction affecting right dominant side (principal); I69.010 Attention and concentration deficit following nontraumatic subarachnoid hemorrhage; I69.014 Frontal lobe and executive function deficit following nontraumatic subarachnoid hemorrhage
CPT/HCPCS: 97110; 97129; 97130; 97161; 97165; 97166; 97530

== ENCOUNTER 2023-12-27 19:17 | Emergency (ER) | payer MEDICARE, OTHER, SELFPAY ==
[2023-12-27 19:18] VITALS: BP 147/67; PULSE 76; RESP 17; TEMP 36.6; O2SAT 97; BMI 32.7
--- NOTE | 2023-12-27 19:33 | EDS_ITS ---
HPI History of Present Illness Chief Complaint: Chest Pain [facility] Medical History (Updated 11/27/23 @ 00:02 by Background Kvng) Dyslipidemia Essential (primary) hypertension Stage 2 chronic kidney disease Bradycardia, sinus Osteoarthritis Right knee pain Pulmonary hypertension Obesity (BMI 30-39.9) Ectopic atrial tachycardia Non-rheumatic tricuspid valve insufficiency Nonrheumatic mitral (valve) insufficiency Syncope and collapse Nonrheumatic aortic valve insufficiency Hypothyroidism Home Medications ?Medication ?Instructions ?Recorded ?Last Taken ?Type cholecalciferol (vitamin D3) 50 2,000 unit PO QDAY health 07/27/17 10/27/23 09:00 History mcg (2,000 unit) capsule maintenance calcium carbonate 600 mg PO BID health maintenance 08/05/21 10/27/23 21:00 History acetaminophen 325 mg tablet 650 mg (2 x 325 mg) PO Q6H PRN 10/29/23 Unknown Rx pain #1 TAB aspirin 81 mg tablet,delayed 81 mg PO DAILY heart health #1 10/29/23 Unknown Rx release TAB heparin (porcine) 5,000 unit/mL 5,000 unit subcut Q12 blood 10/29/23 Unknown Rx injection solution thinner #25 mL levothyroxine 100 mcg tablet 100 mcg PO [id number]@0600 10/29/23 Unknown Rx thyroid #0 tabs amlodipine 5 mg tablet 5 mg PO DAILY #30 tabs 11/19/23 Unknown Rx atorvastatin 40 mg tablet 40 mg PO QHS #30 tabs 11/19/23 Unknown Rx levothyroxine 112 mcg tablet 112 mcg PO .SA,RAMESH thyroid #8 tabs 11/19/23 Unknown Rx atorvastatin 40 mg tablet 40 mg PO QHS #30 tabs 12/09/23 Unknown Rx omeprazole 20 mg capsule,delayed 20 mg PO DAILY #30 CAPSULES 12/27/23 Unknown Rx release Allergy/AdvReac Type Severity Reaction Status Date / Time adhesive Allergy Hives Verified 10/28/23 07:03 Family History Father Hypertension Mother Lymphoma Brother Bipolar 1 disorder Pneumonia Brother Hypertension Surgical History History of laparoscopy Social History (Updated 10/30/23 @ 13:[address] Cheryle Lozano DO) household members: significant other housing: house number of children: 2 Smoking Status: Never smoker alcohol intake: current alcohol intake frequency: a few times a month substance use type: does not use caffeine: No what type of physical activity do you participate in: bicycling frequency: 5-6 times per week duration: 45-60 minutes/day seatbelt use: always do you feel safe at home: Yes EXAM Physical Exam Const Vital Signs: 12/27/23 19:18 12/27/23 19:47 12/27/23 20:22 Temperature 98 F Temperature Source Oral Pulse Rate 76 71 Respiratory Rate 17 19 H Blood Pressure 147/67 H 111/57 L Blood Pressure Mean 93 75 Pulse Ox 97 98 Oxygen Delivery Method Room Air Room Air 12/27/23 21:00 12/27/23 22:00 12/27/23 23:00 Temperature Temperature Source Pulse Rate 68 78 72 Respiratory Rate 16 18 19 H Blood Pressure 124/63 H 123/63 H 131/60 H Blood Pressure Mean 83 83 83 Pulse Ox 96 99 99 Oxygen Delivery Method Room Air Room Air Room Air MDM MDM MDM Narrative Medical decision making narrative: HISTORY OF PRESENT ILLNESS: 73-year-old female presents with chest pain. She has a past medical history of hyperlipidemia, hypertension, hypothyroidism, COVID. Per triage note patient states She notes chest pain that radiates to her neck for the last 2 days. She notes history of stroke in October. She further states the pain is sharp. It is not ripping or tearing. It is not associated with new neurologic deficits. It is associated with syncope. The patient denies recent surgery in the last 4 weeks or immobilization in the last 3 days, denies previous diagnosis of DVT or PE, hemoptysis, unilateral leg swelling or malignancy with treatment the last 6 months or palliative. No estrogen use noted. Patient denies sudden onset of pain, no tearing sensation, no migratory symptoms, no new numbness, weakness or loss of sensation. Patient denies family history or personal history of Connective tissue disorders (Marfan's Syndrome, Alejandro Danlos etc). REVIEW OF SYSTEMS: Pertinent positives: Chest pain Pertinent negatives: Shortness of breath PHYSICAL EXAM: Nursing triage notes reviewed, Vital signs reviewed Constitutional: please see mdm HENT: MMM Eyes: Pupils equal round and reactive to light, Extraocular muscles intact Neck: No stridor, no JVD, full neck ROM, no carotid bruits Lungs: Clear to auscultation, No wheezing or rales. No increased work of breathing, no conversational dyspnea, no accessory muscle use, no nasal flaring. No respiratory distress noted Heart: Regular rate and rhythm, No murmurs, No rubs and No gallops, 2+ distal pulses (radial, femoral, posterior tibial) in all extremities Abdomen: Soft, there is no tenderness, rigidity, rebound or guarding, no obvious peritoneal signs, no palpable pulsatile abdominal masses, no auscultated abdominal bruit : No CVAT Extremities: No edema Neuro: No focal neurological deficits, cranial nerves II through XII intact, 5/5 strength in all extremities. Intact sensation to light touch in all extremities, 2+ reflexes bilateral patella tendons. Normal gait. No ataxia. Skin: No rash or lesions noted MEDICAL DECISION MAKING: Chief Complaint: Chest pain External records reviewed: Imaging reviewed: Reviewed CTA of the head and neck with contrast from October 2023 which was unremarkable, no significant stenosis in the right or left carotid arteries. Reviewed prior echocardiogram. Last echocardiogram from October 2023 shows an ejection fraction of 65% with no significant diastolic dysfunction or regional wall motion abnormalities factors affecting care: debility, CVA (right hemiparesis), Social determinants of health: none History obtained from others: none Consults: none MDM Narrative: Patient was initially hemodynamically stable, afebrile, nontoxic-appearing. Exam there were no pulse deficits. She had equal strength and sensation bilateral upper lower extremity despite documentation of hemiparesis. Patient had no carotid bruits. I considered the following differential diagnosis: ACS, arrhythmia, aortic dissection, PE, GI etiology (Boerhaave syndrome, Sayra-Zazueta tear I obtained a broad lab and imaging workup to further elucidate etiology of patient complaints. I considered PE, aortic dissection but history and physical not suggestive. ALL IMAGES (IF OBTAINED) HAVE BEEN PERSONALLY REVIEWED AND INTERPRETED BY MYSELF. EKG with normal sinus rhythm, left axis deviation, normal intervals, no STEMI. No significant changes from prior EKG on 10/28/2023 CBC without leukocytosis, severe anemia, no thrombocytopenia. High-sensitivity troponin is negative, no evidence of myocardial ischemia x 2 BMP without evidence of significant electrolyte abnormalities, no anion gap, no acute kidney injury. I have personally reviewed the patient's chest x-ray. Chest x-ray is unremarkable for pulmonary edema, pneumothorax, pneumonia or focal cardiopulmonary abnormality. Patient rules out for ACS by [facility] high-sensitivity protocol. On reassessment blood pressure improved to 123/63 There is no clear life-limiting etiology in the chest that could explain the patient's symptoms. She does have a hiatal hernia per radiology report which may be causing some reflux and as such GERD causing her symptoms rather than ACS PE dissection pericarditis or other cardiovascular emergency. She is appropriate discharge home. The patient and/or family, caregivers express understanding. The patient and/or family, caregivers agrees with the plan. Shared decision making: I will have a discussion with the patient and or visitors regarding risk/benefits of further testing or admission. They will be made aware of of the risk/benefits inherent in this decision they will be given the opportunity to voice understanding. Total critical care time today provided was at least 0 minutes. This excludes separately billable procedures. Critical care time (if documented) is secondary to the patient having high probability of clinically significant/life threatening deterioration in the patient's condition which required my urgent intervention. Impression: 1. Chest pain 2. History of hypertension 2. History of hyperlipidemia Dispo: Discharge home This note was generated with [employer] dictation software. It may contain incorrect words, spelling, and punctuation that were not noted in review of the chart prior to signing. Lab Data Labs: Laboratory Results - last 24 hr 12/27/23 12/27/23 19:28 21:56 WBC 3.6 L RBC 4.34 Hgb 12.9 Hct 39.8 MCV 91.7 MCH 29.7 MCHC 32.4 RDW Std Deviation 50.4 H RDW Coeff of Judy 14.9 H Plt Count 215 MPV 8.9 Immature Gran % (Auto) 0.000 Neut % (Auto) 56.1 Lymph % (Auto) 32.5 [place] % (Auto) 6.4 Eos % (Auto) 4.2 Baso % (Auto) 0.8 Absolute Neuts (auto) 2.0 Absolute Lymphs (auto) 1.17 Nucleated RBC % 0 Sodium 140 Potassium 3.5 Chloride 107 Carbon Dioxide 25.0 Anion Gap 8 BUN 15 Creatinine 1.19 H Estim Creat Clear Calc 46.15 Est GFR (MDRD) Af Amer 57 L Est GFR (MDRD) Non-Af 47 L BUN/Creatinine Ratio 12.6 Glucose 164 H Calcium 9.5 Troponin I High Sens 6 6 Radiography Diagnostic Testing: Clinical Impression(s) from Imaging Studies Chest X-Ray 12/27/23 19:50 IMPRESSION: Hiatal hernia. Electronically Signed: Fuentes Hughes DO at 20:46 EDT Reading Location ID and State: [facility] / [place] Tel [phone], Service support , Discharge Plan Triage Chief Complaint: Chest Pain ED Provider: Vj Crawford Dx/Rx/DC Orders Instructions: ED Hiatal Hernia, Chest Pain [facility] Prescriptions: New omeprazole 20 mg capsule,delayed release(DR/EC) 20 mg PO DAILY Qty: 30 0RF No Action cholecalciferol (vitamin D3) 2,000 unit capsule 2,000 unit PO QDAY calcium carbonate 600 mg calcium (1,500 mg) tablet 600 mg PO BID aspirin 81 mg Tablet,Delayed Release (Dr/Ec) 81 mg PO DAILYCM Qty: 1 0RF levothyroxine 100 mcg Tablet 100 mcg PO [id number]@0600 Qty: 0 0RF heparin (porcine) 5,000 unit/mL Solution 5,000 unit subcut Q12 Qty: 25 0RF acetaminophen 325 mg tablet 650 mg PO Q6H PRN (Reason: pain) Qty: 1 0RF atorvastatin 40 mg Tablet 40 mg PO QHS Qty: 30 0RF Rx Instructions: This medication helps to prevent strokes. It is for cholesterol. amlodipine 5 mg Tablet 5 mg PO DAILY Qty: 30 0RF Rx Instructions: You take this medication for high BP. levothyroxine 112 mcg Tablet 112 mcg PO .SA,RAMESH Qty: 8 0RF Rx Instructions: 112 mcg orally on Thursday and Thursday atorvastatin 40 mg tablet 40 mg PO QHS Qty: 30 0RF Primary Care Provider: Joseph Dunaway Referrals: Mine Arthur MD [Med Staff - Active Staff] - Joseph Dunaway MD [Primary Care Provider] - Activity Restrictions/Additional Instructions: Thank you for trusting us with your care today! Please take Tylenol (2 pills, 650 mg)every 6 hours as needed for pain and fever control. Please start taking omeprazole which is a acid blocking medication that may improve your symptoms. Please return to the emergency department if your symptoms change or worsen. Please follow with your primary care physician for further outpatient evaluation and management. I have also provided with a general surgeon to follow-up with to assess her hiatal hernia to see if it is amenable to any surgical intervention to improve your symptoms. Print Language: Irish Disposition Disposition: Home, Self Care Discharge Date/Time: 12/27/23 23:10
[2023-12-27 19:50] LABS: Absolute Lymphocyte Count 1.17 X10^3/uL (0.83-4.51); Basophil# 0.03 X10^3/uL; Basophil% 0.8 % (0-1); Eosinophil# 0.15 X10^3/uL; Eosinophils% 4.2 % (0-5); Hematocrit 39.8 % (37-47); Hemoglobin 12.9 g/dL (12.0-15.0); Lymphocyte # 1.17 X10^3/ul (0.83-4.51); Lymphocyte % 32.5 % (19-41); Mean Corp Hgb Conc 32.4 g/dL (32-36); Mean Corpuscular Hgb 29.7 pg (27.0-32.0); Mean Corpuscular Volume 91.7 fL (81-99); Mean Platelet Vol. 8.9 fl (6.2-12.0); Monocyte# 0.23 X10^3/uL; Monocyte% 6.4 % (0-10); NRBC Flagged by Analyzer 0 % (0-5); Neutrophil # 2.02 X10^3/uL (2.7-7.7); Neutrophil % 56.1 % (47-70); Platelet Count 215 K/mm3 (150-450); RBC Distribution Width CV 14.9 % (11.6-14.6); RBC Distribution Width SD 50.4 fl (35.1-43.9); Red Blood Count 4.34 M/mm3 (4.2-5.4); White Blood Count 3.6 K/mm3 (4.4-11.0)
--- NOTE | 2023-12-27 19:50 | RAD_ITS ---
INDICATION: CHEST PAIN EXAMINATION/TECHNIQUE: X-RAY - XR Chest 1 View COMPARISON: October 28, 2023 FINDINGS: LINES/DEVICES: None. LUNGS: No consolidation, edema or effusion. No pneumothorax. MEDIASTINUM AND CARDIOVASCULAR STRUCTURES: Cardiac silhouette not enlarged. Central airways and mediastinal contour are unremarkable. BONES AND SOFT TISSUES: Unremarkable. Hiatal hernia. RAD/Chest 1 View (Portable) IMPRESSION: Hiatal hernia. Electronically Signed: Fuentes Hughes DO at 20:46 EDT ,
[2023-12-27 20:08] LABS: Anion Gap 8 (5-15); BUN 15 mg/dL (7-18); BUN/Creat Ratio 12.6 RATIO (10-20); Calcium,Total 9.5 mg/dL (8.5-10.1); Chloride 107 mmol/L (98-107); Creatinine, Serum 1.19 mg/dL (0.55-1.02); EST Glomerular Filtration Rate 47 mL/min (>60); Est Glom Filt Rate - Afr Amer 57 mL/min (>60); Estimated Creatinine Clearance 46.15 ml/min; Glucose 164 mg/dL (74-106); Potassium 3.5 mmol/L (3.5-5.1); Sodium Level 140 mmol/L (136-145); Troponin-I HS (w/2H Reflex) 6 pg/mL (3.0-54.0)
[2023-12-27] MEDS: Aspirin 81 MG TAB.CHEW 324 MG PO (20:14)
[2023-12-27 20:22] VITALS: BP 111/57; PULSE 71; RESP 19; O2SAT 98
[2023-12-27 21:00] VITALS: BP 124/63; PULSE 68; RESP 16; O2SAT 96
[2023-12-27 21:47] LABS: Reflex Troponin-HS? (from REC) Y
[2023-12-27 22:00] VITALS: BP 123/63; PULSE 78; RESP 18; O2SAT 99
[2023-12-27 22:21] LABS: Troponin-I HS 6 pg/mL (3.0-54.0)
[2023-12-27 23:00] VITALS: BP 131/60; PULSE 72; RESP 19; O2SAT 99
== END 2023-12-27 23:10 | disposition home or self-care (01) ==
PROVIDERS: Emergency Provider Emergency Medicine; PCP Family Medicine; Visit Provider Emergency Medicine
DX: R07.9 Chest pain, unspecified (principal); I12.9 Hypertensive chronic kidney disease with stage 1 through stage 4 chronic kidney disease, or unspecified chronic kidney disease; E78.5 Hyperlipidemia, unspecified; N18.2 Chronic kidney disease, stage 2 (mild); E03.9 Hypothyroidism, unspecified; I36.1 Nonrheumatic tricuspid (valve) insufficiency; I34.0 Nonrheumatic mitral (valve) insufficiency; E66.9 Obesity, unspecified; Z79.82 Long term (current) use of aspirin; Z79.890 Hormone replacement therapy; Z79.899 Other long term (current) drug therapy; Z86.73 Personal history of transient ischemic attack (TIA), and cerebral infarction without residual deficits
CPT/HCPCS: 71045; 80048; 84484; 85025; 93005; 99283; A4216

== ENCOUNTER 2024-05-18 02:36 | Emergency (ER) | payer MEDICARE, OTHER, SELFPAY ==
[2024-05-18 02:37] VITALS: BP 129/84; PULSE 120; RESP 15; TEMP 36.4; O2SAT 99; BMI 31.8
--- NOTE | 2024-05-18 02:43 | RAD_ITS ---
PROCEDURE: CHEST 1 VIEW (PORTABLE) REASON FOR EXAM: Palpitations. Chest pain. TECHNIQUE: AP portable view of the chest. COMPARISON: No prior examinations are currently available for comparison. FINDINGS: Lungs are well aerated. No focal airspace consolidation, pneumothorax or pleural effusion is seen. Remaining lung markings otherwise appears clear. Heart size is within normal limits. Tortuosity involving the thoracic aorta. Suspect hiatal hernia. Osseous structures are intact. Spondylotic changes in slight curvature involving the thoracic spine. EKG wires overlie the chest. RAD/Chest 1 View (Portable) IMPRESSION: No acute cardiopulmonary process identified. Reading Location: [facility]
--- NOTE | 2024-05-18 02:54 | EKG12_ITS ---
Test Reason : CP Blood Pressure : */* mmHG Vent. Rate : 134 BPM Atrial Rate : * BPM P-R Int : * ms QRS Dur : 86 ms QT Int : 264 ms P-R-T Axes : * -1 182 degrees QTcB Int : 394 ms Atrial fibrillation with rapid ventricular response ST & T wave abnormality, consider lateral ischemia Abnormal ECG Confirmed by JOSE LOVING, LISBETH ([id number]), assistant editor KUNAL WELCH ([id number]) on 05/19/2024 7:12:53 AM Referred By: ANDREIA Confirmed By: LISBETH GARCIA MD
[2024-05-18 03:01] LABS: Absolute Neutrophil Count 1.5 X10^3/uL (2.0-7.7); Basophil# 0.06 X10^3/uL; Basophil% 1.7 % (0-1); Eosinophil# 0.22 X10^3/uL; Eosinophils% 6.1 % (0-5); Hematocrit 42.7 % (37-47); Hemoglobin 13.8 g/dL (12.0-15.0); Lymphocyte % 38.6 % (19-41); Mean Corp Hgb Conc 32.3 g/dL (32-36); Mean Corpuscular Volume 92.8 fL (81-99); Mean Platelet Vol. 9.2 fl (6.2-12.0); Monocyte# 0.41 X10^3/uL; Monocyte% 11.3 % (0-10); NRBC Flagged by Analyzer 0 % (0-5); Neutrophil # 1.53 X10^3/uL (2.7-7.7); Platelet Count 193 K/mm3 (150-450); RBC Distribution Width CV 13.3 % (11.6-14.6); RBC Distribution Width SD 45.3 fl (35.1-43.9); White Blood Count 3.6 K/mm3 (4.4-11.0)
[2024-05-18] MEDS: dilTIAZem 25 MG/5 ML Vial 20 MG IV BOLUS (03:04)
[2024-05-18] MEDS: 0.9% Normal Saline (1000mL) 1,000 ML 999 ML IV (03:04)
[2024-05-18 03:25] LABS: Anion Gap 8 (5-15); BUN 24 mg/dL (7-18); BUN/Creat Ratio 21.1 RATIO (10-20); Calcium,Total 9.4 mg/dL (8.5-10.1); Chloride 106 mmol/L (98-107); Creatinine, Serum 1.14 mg/dL (0.55-1.02); EST Glomerular Filtration Rate 50 mL/min (>60); Est Glom Filt Rate - Afr Amer 60 mL/min (>60); Estimated Creatinine Clearance 47.55 ml/min; Glucose 100 mg/dL (74-106); Magnesium 2.2 mg/dL (1.6-2.6); Potassium 3.9 mmol/L (3.5-5.1); Sodium Level 141 mmol/L (136-145)
[2024-05-18] MEDS: Metoprolol Tartrate 25 MG Tablet PO (03:28)
[2024-05-18 03:29] VITALS: BP 113/38; PULSE 88; RESP 17; O2SAT 98
[2024-05-18 04:00] VITALS: BP 100/51; PULSE 74; RESP 16; O2SAT 99
--- NOTE | 2024-05-18 04:10 | EX.ED.DYSGE1 ---
HPI History of Present Illness Chief Complaint: Palpitations Informant: patient and spouse/S.O. Narrative Narrative: Patient is a 73-year-old female with past medical history of hypertension hyperlipidemia hypothyroidism and previous ischemic stroke. She takes aspirin daily but is not on anticoagulation. She denies any history of abnormal cardiac rhythm. She states that she went to bed feeling normally and then awoke from sleep around 1 in the morning with sensation of her heart racing and skipping beats. She states that there has been no new medications and she denies any excessive stimulant or or illicit drug use. She reports that as her symptoms have not resolved she presents for evaluation [facility] Medical History (Updated 05/18/24 @ 04:[address] Reilly Suazo, DO) Stage 2 chronic kidney disease Dyslipidemia Essential (primary) hypertension Osteoarthritis Right knee pain Pulmonary hypertension Obesity (BMI 30-39.9) Ectopic atrial tachycardia Bradycardia, sinus Non-rheumatic tricuspid valve insufficiency Nonrheumatic mitral (valve) insufficiency Syncope and collapse Nonrheumatic aortic valve insufficiency Hypothyroidism Home Medications ?Medication ?Instructions ?Recorded ?Last Taken ?Type cholecalciferol (vitamin D3) 50 2,000 unit PO QDAY health 07/27/17 10/27/23 09:00 History mcg (2,000 unit) capsule maintenance calcium carbonate 600 mg PO BID health maintenance 08/05/21 10/27/23 21:00 History acetaminophen 325 mg tablet 650 mg (2 x 325 mg) PO Q6H PRN 10/29/23 Unknown Rx pain #1 TAB aspirin 81 mg tablet,delayed 81 mg PO DAILY [facility] #1 10/29/23 Unknown Rx release TAB levothyroxine 112 mcg tablet 112 mcg PO .SA,RAMESH thyroid #8 tabs 11/19/23 Unknown Rx amlodipine 5 mg tablet 5 mg PO DAILY #90 tabs 01/18/24 Unknown Rx levothyroxine 100 mcg tablet 100 mcg PO .COMPLEX thyroid 01/18/24 Unknown History omeprazole 20 mg capsule,delayed 20 mg PO DAILY PRN 01/18/24 Unknown History release atorvastatin 80 mg tablet 80 mg PO QHS for cholesterol and 03/29/24 Unknown Rx stroke prevention #90 tabs apixaban 5 mg tablet (Eliquis) 5 mg PO BID 30 days #60 tabs 05/18/24 Unknown Rx metoprolol tartrate 50 mg tablet 50 mg PO BID 30 days #60 tabs 05/18/24 Unknown Rx Allergy/AdvReac Type Severity Reaction Status Date / Time adhesive Allergy Hives Verified 05/18/24 02:43 Family History Father Hypertension Mother Lymphoma Brother Bipolar 1 disorder Pneumonia Brother Hypertension Surgical History (Updated 05/18/24 @ 02:43 by Sammie Burrell) History of laparoscopy Social History household members: significant other housing: house number of children: 2 Smoking Status: Never smoker alcohol intake: current alcohol intake frequency: a few times a month substance use type: does not use caffeine: No what type of physical activity do you participate in: bicycling frequency: 5-6 times per week duration: 45-60 minutes/day seatbelt use: always do you feel safe at home: Yes ROS ROS ED Constitutional Constitutional ED: Denies chills or fever(s) Eyes Eyes: Denies blurry vision or change in vision ENT ENT ED: Denies sore throat Cardiovascular Cardiovascular: Reports palpitations and racing heartbeat; Denies chest pain Respiratory/Chest Respiratory/Chest: Denies cough or dyspnea Gastrointestinal Gastrointestinal: Denies abdominal pain, diarrhea, nausea or vomiting Genitourinary Genitourinary ED: Denies dysuria Musculoskeletal Musculoskeletal: Denies myalgias Integumentary Denies rash Neurologic Neurologic: Denies headache(s) Hematologic/Lymphatic Hematologic/Lymphatic: Denies easy bleeding or easy bruising EXAM Physical Exam Const Vital Signs: 05/18/24 02:37 05/18/24 03:29 05/18/24 04:00 Temperature 97.6 F L Temperature Source Oral Pulse Rate 120 H 88 74 Respiratory Rate 15 17 16 Blood Pressure 129/84 H 113/38 L 100/51 L Blood Pressure Mean 99 63 67 Pulse Ox 99 98 99 Oxygen Delivery Method Room Air Room Air Room Air 05/18/24 04:21 Temperature 97.8 F Temperature Source Pulse Rate 68 Respiratory Rate 18 Blood Pressure 111/68 Blood Pressure Mean 82 Pulse Ox 100 Oxygen Delivery Method Positive well nourished and well developed General Appearance ED: well developed; Negative for pallor HEENT Reports moist mucous membranes HEENT Narrative: No tongue or lip swelling no oral lesions no airway edema or compromise; no secondary findings to suggest infection in the posterior pharynx Eyes PERRL and EOMs intact bilaterally General Eye ED: Negative for scleral icterus Neck supple and no JVD Neck Narrative: No nuchal rigidity or meningeal signs noted Resp normal respiratory effort and clear to auscultation bilaterally Cardio Rate: other Other Details: Irregularly irregular rhythm with tachycardic rate consistent with atrial fibrillation Radial and carotid pulses are equal and symmetric GI normal to inspection, nondistended, normoactive bowel sounds, non-tender, non-distended and no masses Auscultation: normoactive bowel sounds Palpation: soft Extremity normal to inspection Extremity Narrative: No asymmetric edema no pitting edema negative Homans' sign bilaterally Neuro oriented x3, CN's II-XII intact bilaterally and no sensory deficits noted Sensorium / Orientation: alert Motor Exam: strength 5/5 throughout Psych mental status grossly normal Skin no rashes or lesions noted and no wounds General Skin Exam: Negative for jaundice or pallor MDM MDM MDM Narrative Medical decision making narrative: Patient arrived to the ER in atrial fibrillation with rapid ventricular response. She does not have a known history of this. She states that this woke her from sleep and she has been able to feel that the heart is abnormal in its rhythm and rate. Therefore there is competence and the fact that this is most likely only been going on for 2 to 3 hours. Based on the short timeframe and the fact she is not hypoxic or describing chest discomfort I have low concern for a pulmonary embolus. Physical exam does not show any signs of neurologic dysfunction going against a embolic stroke. In order to rule out potential causes of new onset A-fib such as anemia acute kidney injury electrolyte abnormality thyroid dysfunction basic blood work will be obtained. Labs revealed no clinically significant findings. She was given 20 mg of IV Cardizem and had reduction in her rate to approximately 70 but remained in A-fib. She was started on metoprolol tartrate to help keep rate under control. Despite maintaining the rate at around 70 to 80 bpm the patient remained in A-fib without spontaneous cardioversion. As she is hemodynamically stable and this is her first episode of atrial fibrillation I did not feel was appropriate to perform an emergent cardioversion in the ER. The case was discussed with cardiology on-call Dr. Gupta. He recommends patient is stop amlodipine and take 50 mg of metoprolol tartrate twice a day. He also recommends that she stop the aspirin and begin Eliquis 5 mg twice a day. The patient was started on these medications in the ER but as she has remained hemodynamically stable with resolution of her tachycardia and does not have neurologic effects and she is low risk for DVT/PE based on the short nature of the A-fib there is no need for further evaluation in the hospital and she is otherwise safe for discharge History & Record Review Discussion w/independent historian: Patient and Significant other Lab Data Attestation: I reviewed the patient's lab results. Labs: Laboratory Results - last 24 hr 05/18/24 02:46 WBC 3.6 L RBC 4.60 Hgb 13.8 Hct 42.7 MCV 92.8 MCH 30.0 MCHC 32.3 RDW Std Deviation 45.3 H RDW Coeff of Judy 13.3 Plt Count 193 MPV 9.2 Immature Gran % (Auto) 0.300 Neut % (Auto) 42.0 L Lymph % (Auto) 38.6 [place] % (Auto) 11.3 H Eos % (Auto) 6.1 H Baso % (Auto) 1.7 H Absolute Neuts (auto) 1.5 L Absolute Lymphs (auto) 1.40 Nucleated RBC % 0 Sodium 141 Potassium 3.9 Chloride 106 Carbon Dioxide 27.0 Anion Gap 8 BUN 24 H Creatinine 1.14 H Estim Creat Clear Calc 47.55 Est GFR (MDRD) Af Amer 60 Est GFR (MDRD) Non-Af 50 L BUN/Creatinine Ratio 21.1 H Glucose 100 Calcium 9.4 Magnesium 2.2 TSH 1.270 Radiography Diagnostic Testing: Clinical Impression(s) from Imaging Studies Chest X-Ray 05/18/24 02:43 IMPRESSION: No acute cardiopulmonary process identified. [facility] Chest x-ray as interpreted by the emergency medicine physician reveals no acute infiltrate pneumothorax or pleural effusion Discharge Plan Triage Chief Complaint: Palpitations ED Provider: Reilly Suazo Dx/Rx/DC Orders Clinical Impression: Atrial fibrillation with rapid ventricular response, Hypothyroidism, CVA (cerebral vascular accident), Hypertension Instructions: AFib Dc Prescriptions: New metoprolol tartrate 50 mg tablet 50 mg PO BID 30 Days Qty: 60 1RF Eliquis 5 mg tablet 5 mg PO BID 30 Days Qty: 60 1RF No Action cholecalciferol (vitamin D3) 2,000 unit capsule 2,000 unit PO QDAY levothyroxine 100 mcg tablet 100 mcg PO .COMPLEX Rx Instructions: 100 mcg orally Thu//Thu//Thu omeprazole 20 mg capsule,delayed release(DR/EC) 20 mg PO DAILY PRN amlodipine 5 mg tablet 5 mg PO DAILY Qty: 90 3RF Rx Instructions: You take this medication for high BP. calcium carbonate 600 mg calcium (1,500 mg) tablet 600 mg PO BID aspirin 81 mg Tablet,Delayed Release (Dr/Ec) 81 mg PO DAILYCM Qty: 1 0RF acetaminophen 325 mg tablet 650 mg PO Q6H PRN (Reason: pain) Qty: 1 0RF levothyroxine 112 mcg Tablet 112 mcg PO .SA,RAMESH Qty: 8 0RF Rx Instructions: 112 mcg orally on Thursday and Thursday atorvastatin 80 mg tablet 80 mg PO QHS Qty: 90 3RF Primary Care Provider: Joseph Dunaway Referrals: Devonte Ladd MD [Med Staff - Active Staff] - 1 Week (New onset atrial fibrillation) Joseph Dunaway MD [Primary Care Provider] - Activity Restrictions/Additional Instructions: Please stop your amlodipine and begin taking the metoprolol twice a day as this will help control blood pressure and heart rate. Stop the baby aspirin daily and begin taking the Eliquis twice a day to prevent blood clots. Follow-up with cardiology for further evaluation and return to the ER should you have any further concerns Print Language: Divehi Disposition Disposition: Home, Self Care Discharge Date/Time: 05/18/24 04:28
[2024-05-18 04:21] VITALS: BP 111/68; PULSE 68; RESP 18; TEMP 36.6; O2SAT 100
[2024-05-18] MEDS: APIXABAN 5 MG TABLET PO (04:24)
== END 2024-05-18 04:28 | disposition home or self-care (01) ==
PROVIDERS: Emergency Provider Emergency Medicine; PCP Family Medicine; Visit Provider Emergency Medicine
DX: I48.91 Unspecified atrial fibrillation (principal); I27.20 Pulmonary hypertension, unspecified; E03.9 Hypothyroidism, unspecified; I12.9 Hypertensive chronic kidney disease with stage 1 through stage 4 chronic kidney disease, or unspecified chronic kidney disease; N18.2 Chronic kidney disease, stage 2 (mild); E78.5 Hyperlipidemia, unspecified; Z79.82 Long term (current) use of aspirin; Z79.01 Long term (current) use of anticoagulants; Z79.899 Other long term (current) drug therapy; Z86.73 Personal history of transient ischemic attack (TIA), and cerebral infarction without residual deficits
CPT/HCPCS: 71045; 80048; 83735; 84443; 85025; 93005; 96361; 96374; 96375; 99284; A4216